=== PATIENT | male | born 1970 | race Caucasian/White ===

== ENCOUNTER 2019-01-15 10:38 | Inpatient (IN) | payer OTHER, MEDICAID ==
[~2019-01-15] VITALS: Ht 157.5 cm; Wt 78.5 kg
--- NOTE | 2019-01-15 10:40 | NUR ---
PT PLACED IN BED 8 BY EMS.
[2019-01-15 10:43] VITALS: BP 125/79
--- NOTE | 2019-01-15 10:45 | NUR ---
PT BIBA C/O G-TUBE MALFUNCTION. PER EMS PATIENT PULLED OUT G-TUBE, TRAINING PROGRAM MANAGER UNSURE WHAT SIZE G-TUBE PT USES, NOTHING PLACE AT THIS TIME. PT [facility]" HX--PROFOUND ID, SEIZURE, BLINDNESS, HTN, HYPOTHYROID, ANEMIA, DYSPHAGIA, RIGHT ECHO PARESIS
[2019-01-15] MEDS ORDERED: BENZ-248 GT (12:15)
[2019-01-15] MEDS ORDERED: ACET-2619 GT (12:15)
[2019-01-15] MEDS ORDERED: BENZ-196 PO (12:15)
[2019-01-15] MEDS ORDERED: MIRABULK GT (12:15)
[2019-01-15] MEDS ORDERED: VALP-22 GT (12:15)
[2019-01-15] MEDS ORDERED: COL100L GT (12:15)
[2019-01-15] MEDS ORDERED: CLON1TAB GT (12:15)
[2019-01-15] MEDS ORDERED: FERR220S GT (12:15)
[2019-01-15] MEDS ORDERED: QUET200T GT (12:15)
[2019-01-15] MEDS ORDERED: ATEN25TA7 GT (12:15)
[2019-01-15] MEDS ORDERED: LEVO0.124 PO (12:15)
[2019-01-15] MEDS ORDERED: ASCO500T45 GT (12:15)
[2019-01-15] MEDS ORDERED: ACETAMINOPHEN 650 MG/20.3 ML UDC GT PRN (12:20)
[2019-01-15] MEDS ORDERED: BENZONATATE 100 MG CAPLF PO PRN (12:20)
--- NOTE | 2019-01-15 13:10 | NUR ---
Patient will be admitted to care of [facility]. Admited to MED/SURG. Will go to room 120A. Belongings list completed. Report to GERHARD HORTON.
--- NOTE | 2019-01-15 13:20 | NUR ---
PATIENT ARRIVED VIA GURNEY. REPORT RECEIVED FROM CANDY MIXER LINSEY AT BEDSIDE FOR CONTINUITY OF CARE. PATIENT NONVERBAL. ASSISTANT CASE MANAGER, SARATH. FROM [facility] AT BEDSIDE. RESPIRATIONS EVEN AND UNLABORED ON ROOM AIR. FLACC-0. PATIENT COMBATIVE, WEAK ON LEFT SIDE. PATIENT HITS WITH RIGHT ARM AND RIGHT LEG. PATIENT ALSO HEADBUTTS AND BITES, PER SARATH. IV TO RIGHT AC, 22G, INTACT, PATENT, ASYMPTOMATIC, SL AT THE MOMENT. UPDATED BOARD. SAFETY AND SEIZURE PRECAUTIONS IN PLACE, CALL LIGHT WITHIN REACH, WILL CONTINUE TO MONITOR PATIENT.
--- NOTE | 2019-01-15 13:30 | NUR ---
PATIENT COMBATIVE, TAPPED SAUSAGE CANNER. CALLED DR. MATHEW FOR RESTRAINT ORDER. ORDER GIVEN. WRIST RESTRAINT AND MITTENS PLACED ON PATIENT. PATIENT VOIDED. PATIENT CHANGED AND CLEANED UP. FEEDER ASSOCIATE SARATH TOOK PATIENT'S BELONGINGS WITH HIM BACK TO [facility]. PATIENT WILL BE FREQUENTLY MONITORED. SAFETY AND SEIZURE PRECAUTIONS IN PLACE, BED IN LOWEST POSITION WITH ALARM ON, CALL LIGHT WITHIN REACH, WILL CONTINUE TO MONITOR PATIENT.
[2019-01-15 13:45] VITALS: BP 159/87
[2019-01-15] MEDS: QUEtiapine FUMARATE 100 MG TAB GT SCH ×2 (14:00→17:00)
[2019-01-15] MEDS: DEXT 5% / NACL 0.45% 1,000 ML IV SCH (14:00)
[2019-01-15] MEDS: clonazePAM 0.5 MG TAB GT SCH ×2 (14:00→17:00)
--- NOTE | 2019-01-15 14:10 | NUR ---
DR HERRERA IN TO SEE THE PATIENT. WILL WAIT FOR HIS ORDERS.
[2019-01-15] MEDS ORDERED: HYDROmorphone 1 MG/ML AMP ONE (14:15)
[2019-01-15] MEDS ORDERED: HYDROmorphone 1 MG/ML AMP IVP PRN (14:15)
--- NOTE | 2019-01-15 15:10 | NUR ---
ABDOMINAL XRAY FOR PLACEMENT OF GTUBE PERFORMED. WILL WAIT FOR RESULTS AND CONTACT DR. HERRERA. PATIENT TOLERATED IT WELL.
--- NOTE | 2019-01-15 17:00 | NUR ---
1700 MEDICATIONS NOT GIVEN D/T PATIENT NOT HAVING GTUBE. CALLED AND SPOKE TO DR. MATHEW TO ASK FOR PRN MEDICATIONS. NEW ORDER IN FOR ATIVAN MEDICATION. RN VERBALIZED UNDERSTANDING. ORDER NOTED AND WILL BE CARRIED OUT.
--- NOTE | 2019-01-15 17:40 | NUR ---
CALLED JOSE VENICE AT [facility] FOR CONSENT FOR EGD WITH PEG PLACEMENT. SHE STATED THAT SHE CANNOT GIVE VERBAL CONSENT. HIS [facility] WORKER, MR PALACIOS MAY GIVE CONSENT. PHILIP' PHONE NUMBER IS [phone]. GAVE PHILIP A CALL. NO ANSWER. LEFT VOICEMAIL. PATIENT CURRENTLY SLEEPING COMFORTABLY IN BED, ON RESTRAINS IN PLACE. WILL ENDORSE TO MORTGAGE COORDINATOR NURSE. WILL CONTINUE TO MONITOR PATIENT. Addendum: 01/15/19 at 1936 by Artis Best RN NO RESTRAINTS IN PLACE.
--- NOTE | 2019-01-15 19:05 | NUR ---
REPORT GIVEN TO DRY DIP WORKER NURSE AT BEDSIDE FOR CONTINUITY OF CARE. PATIENT ASLEEP, IN STABLE CONDITION.
--- NOTE | 2019-01-15 19:30 | NUR ---
ASSUMED CARE OF PATIENT, AWAKE. NO DISTRESS NOTED. HOB ELEVATED. CALL LIGHT WITHIN REACH.
--- NOTE | 2019-01-15 20:00 | NUR ---
MOVE TO 121B VIA BED. CALL LIGHT WITHIN REACH. HOB ELEVATED AT ALL TIME.
[2019-01-15] MEDS: LORazepam 2 MG/ML VIAL IM/IVP PRN (20:42)
[2019-01-15] MEDS: DOCUSATE 100 MG/10 ML UDC GT SCH (20:43)
[2019-01-15] MEDS: VALPROIC ACID 250 MG/5 ML UDC GT SCH (20:44)
[2019-01-15] MEDS: ATENOLOL 25 MG TAB GT SCH (20:44)
--- NOTE | 2019-01-15 21:00 | NUR ---
ATIVAN GIVEN IV FOR ANXIETY ORDERED. CALL LIGHT WITHIN REACH. NO DISTRESS NOTED.
--- NOTE | 2019-01-15 23:28 | NUR ---
VITALS SIGNS STABLE. REPOSITIONED BY CASH APPLICATIONS ASSOCIATE TO LEFT SIDE LYING. CALL LIGHT WITHIN REACH.
[2019-01-16 00:30] VITALS: BP 121/56
--- NOTE | 2019-01-16 00:31 | NUR ---
ASLEEP. NO COMPLAINS. VITAL SIGNS STABLE. REPOSITIONED BY OPERATIONS PROGRAM MANAGER. CALL LIGHT WITHIN REACH.
--- NOTE | 2019-01-16 02:00 | NUR ---
ASLEEP. REPOSITIONED. RESTRAINTS OFF. CALL LIGHT WITHIN REACH.
--- NOTE | 2019-01-16 04:35 | NUR ---
PERICARE DONE. REPOSITIONED BY BREAST WORKER. CALL LIGHT WITHIN REACH. NO DISTRESS.
--- NOTE | 2019-01-16 06:00 | NUR ---
PERICARE DONE. MORE COMBATIVE AND RESTLESS. KICKING AND HITTING STAFF MEMBER. REPOSITIONED PATIENT. 8 STAFF MEMBER AT BEDSIDE TO HOLD HIM DOWN TO INSERT NEW IV ACCESS. ABLE TO INSERT IV ON RIGHT HAND #22, SOFT WRIST AND SOFT MITTEN RESTRAINTS APPLIED ON RIGHT HAND/ARM. ATIVAN GIVEN ORDERED.
[2019-01-16] MEDS: LEVOTHYROXINE 0.025 MG, LEVOTHYROXINE 0.1 MG PO SCH ×2 (06:25)
[2019-01-16] MEDS: LORazepam 2 MG/ML VIAL IM/IVP PRN ×3 (06:26→23:28)
--- NOTE | 2019-01-16 07:17 | NUR ---
ENDORSED CARE AT BEDSIDE WITH JURGEN HORTON, PATIENT IN STABLE CONDITION.
--- NOTE | 2019-01-16 07:18 | NUR ---
PT RECEIBED FROM NIGHT RN, IRENA. PT IN BED, SLEEPING. BREATHING EVEN AND UNLABORED, IV TO R WRIST HAS D5 1/2 NS AT 50ML/HR. WILL CONTINUE CARE.
[2019-01-16 08:00] VITALS: BP 125/85
--- NOTE | 2019-01-16 08:15 | NUR ---
MITTENS AND WRIST RESTRAINTS REMOVED TO ASSESS CIRCULATION. WHEN REAPPLIED, RADIAL PULSES EQUAL, CAP REFILL IN ALL FINGERS < 3 SEC. WILL CONTINUE TO ASSESS PATIENT RESTRAINTS. BREATHING EVEN AND UNLABORED, WILL CONTINUE TO ASSESS FOR CHANGES IN CONDITION.
[2019-01-16] MEDS: DEXT 5% / NACL 0.45% 1,000 ML IV SCH (08:21)
--- NOTE | 2019-01-16 08:30 | NUR ---
FOLLOW-UP CALL TO MR. PALACIOS , PT'S [facility] C[facility] WORKER, FOR CONSENT FOR EGD WITH PEG TUBE PLACEMENT. MR. PALACIOS RECEIVED INFORMATION AND STATED HE WILL CALL MD FOR INFORMATION REGARDING THE PROCEDURE. HE WILL FAX WRITTEN CONSENT ONCE HE SPEAKS TO MD, FAX NUMBER PROVIDED. WILL WAIT FOR FAX.
[2019-01-16] MEDS: FERROUS SULFATE 300 MG/5 ML UDC GT SCH (09:00)
[2019-01-16] MEDS: ASCORBIC ACID 500 MG/5 ML ORASYR GT SCH (09:00)
[2019-01-16] MEDS ORDERED: NON-FORMULARY ITEM (Levothyroxine Sodium* (Synthroid*) 0.125 MG) PO SCH (09:00)
[2019-01-16] MEDS: DOCUSATE 100 MG/10 ML UDC GT SCH ×2 (09:00→20:46)
[2019-01-16] MEDS: QUEtiapine FUMARATE 100 MG TAB GT SCH ×3 (09:00→16:43)
[2019-01-16] MEDS ORDERED: NON-FORMULARY ITEM (Ferrous Sulfate 7.5 ML) GT SCH (09:00)
[2019-01-16] MEDS: BENZTROPINE 1 MG TAB GT SCH (09:00)
[2019-01-16] MEDS: VALPROIC ACID 250 MG/5 ML UDC GT SCH ×2 (09:00→20:46)
--- NOTE | 2019-01-16 09:00 | NUR ---
MORNING MEDICATIONS HELD DUE TO NO G-TUBE. PT AWAITING PROCEDURE FOR PEG PLACEMENT.
--- NOTE | 2019-01-16 09:05 | NUR ---
PATIENT HAS BEEN SCREENED AND CATEGORIZED HIGH NUTRITION RISK. PATIENT WILL BE SEEN WITHIN 1-2 DAYS OF ADMISSION. 01/16/19-01/17/[address]
--- NOTE | 2019-01-16 09:13 | NUR ---
PT IN BED SLEEPING, BREATHING EVEN AND UNLABORED ON ROOM AIR. NO SIGNS OF ACUTE DISTRESS AT THIS TIME. WILL CONTINUE TO ASSESS FOR CHANGES IN CONDITION.
--- NOTE | 2019-01-16 09:50 | NUR ---
FAX MACHINE CHECKED FOR FAXED CONSENT FROM MR PALACIOS. NO FAX. WILL RECHECK FAX AND FOLLOW-UP VIA PHONE CALL WITH MR PALACIOS IF FAXED CONSENT IS NOT RECEIVED BY 1030.
[2019-01-16] MEDS: clonazePAM 0.5 MG TAB GT SCH ×3 (09:51→16:43)
--- NOTE | 2019-01-16 10:03 | NUR ---
PT IN BED SLEEPING. BREATHING EVEN AND UNLABORED. IV SITE ASYMPTOMATIC. WILL CONTINUE TO ASSESS FOR CHANGES IN CONDITION.
--- NOTE | 2019-01-16 10:50 | NUR ---
EMMY BINGHAM CALLED FROM [facility] CONSENT FOR PEG TUBE PLACEMENT. EMMY REQUESTED WE FAX CONSENT SO SHE COULD READ IT AND SHE REQUESTED THE PHONE NUMBER FOR DR. GONG. WILL FAX CONSENT AND WAIT FOR RETURNED SIGNED FAX CONSENT.
--- NOTE | 2019-01-16 11:20 | NUR ---
CONSENT FAXED TO EMMY BINGHAM FROM [facility] . FAX CONFIRMATION RECEIVED. WILL WAIT FOR RETURN OF FAXED SIGNED CONSENT FOR PEG TUBE PLACEMENT.
[2019-01-16] MEDS: POLYETHYLENE GLYCOL 17 GM/PKT GT SCH (12:00)
--- NOTE | 2019-01-16 12:08 | NUR ---
PT IN BED SLEEPING. BREATHING EVEN AND UNLABORED ON ROOM AIR. RESTRAINTS RELEASED FOR 15 MIN TO ASSESS. NO SIGN OF INJURY. CAP REFILL < 3 SEC, RADIAL PULSES EQUAL. RESTRAINTS REAPPLIED AFTER ASSESSMENT. NO SIGNS OF ACUTE DISTRESS AT THIS TIME. WILL CONTINUE TO REASSESS.
--- NOTE | 2019-01-16 12:15 | NUR ---
PT IN BED. BREATHING EVEN AND UNLABORED, WILL CONTINUE TO ASSESS FOR CHANGES IN CONDITION. PT SLEEPING. NO SIGNS OF ACUTE DISTRESS AT THIS TIME.
--- NOTE | 2019-01-16 12:44 | NUR ---
EMMY BINGHAM CALLED TO FOLLOW-UP ON FAXED CONSENT FOR PEG TUBE PLACEMENT. NO ANSER. VOICEMAIL LEFT AND WILL WAIT FOR CALL BACK.
--- NOTE | 2019-01-16 13:00 | NUR ---
PT IN BED, AWAKE AND EYES OPEN, BREATHING EVEN AND UNLABORED, NO SIGNS OF ACUTE DISTRESS AT THIS TIME. WILL CONTINUE TO ASSESS FOR CHANGES IN CONDITION.
--- NOTE | 2019-01-16 13:02 | NUR ---
ORDERED KLONOPIN AND SEROQUEL NOT ADMINISTERED BECAUSE G-TUBE STILL WAITING TO BE REPLACED AND PT DYSPHAGIC.
--- NOTE | 2019-01-16 13:04 | NUR ---
OR NURSE KALPESH CALLED TO ASK ABOUT STATUS OF PT CONSENT FOR PEG TUBE PLACEMENT. KALPESH INFORMED THAT CONSENT IS STILL PENDING AND WE ARE WAITING FOR RETURN FAX OF SIGNED CONSENT. KALPESH STATED THAT DR. GONG WOULD LIKE US TO KEEP TRYING TO GET CONSENT AND PEG TUBE WILL BE REPLACED TOMORROW 01/17/19.
--- NOTE | 2019-01-16 14:00 | NUR ---
PT RESTRAINT TO L HAND REMOVED TO ASSESS CIRCULATION AND SKIN. SKIN INTACT, RADIAL PULSES EQUAL AND 2+, CAP REFILL IN ALL FINGERS < 3 SEC. PT ATTEMPTED TO QUICKLY GRASP NURSES HAD WITH EXTREMELY FIRM CASEWORK SUPERVISOR. RESTRAINTS WERE REAPPLIED. PT AWAKE. BREATHING EVEN AND UNLABORED. NO SIGNS OF ACUTE DISTRESS AT THIS TIME. WILL CONTINUE TO ASSESS FOR CHANGES IN CONDITION.
--- NOTE | 2019-01-16 14:40 | NUR ---
JOES MILLARD, TEENAGE PROGRAM DIRECTOR FROM [facility] CALLED REGARDING CONSENT. I TOLD HER WE ARE STILL WAITING FOR CONSENT FOR G-TUBE PLACEMENT AND MEDS ARE ALL BEING WITHHELD UNTIL G-TUBE IS REPLACED. I INFORMED HER THAT DR. GONG PUSHED BACK G-TUBE REINSERTION UNTIL TOMORROW 01/17/19 IN AN ATTEMPT TO GET CONSENT. JOSE MILLARD STATED SHE WILL FOLLOW UP WIT EMMY BINGHAM REGARDING CONSENT, AND SHE LEFT A CALL BACK NUMBER .
--- NOTE | 2019-01-16 15:32 | NUR ---
01/16/19 RD INITIAL ASSESSMENT COMPLETED PLEASE REFER TO NUTRITION ASSESSMENT UNDER CARE ACTIVITY FOR ESTIMATED NUTRITIONAL NEEDS. 1. IF/WHEN MEDICALLY CLEAR CONSIDER STARTING TUBE FEEDING WITH JEVITY @ 65 ML/HR -THIS WILL PROVIDE 1872 KCAL, 86 GM OF PROTEIN WHICH MEETS 100% OF ESTIMATED NEEDS 2. RECOMMEND FREE WATER FLUSH OF [address] TO FOLLOW-UP 2-3 DAYS, HIGH RISK [address]
--- NOTE | 2019-01-16 15:45 | NUR ---
EMMY BINGHAM FROM [facility] CALLED TO FOLLOW-UP ON CONSENT FOR G-TUB PLACEMENT. NO ANSWER. VOICEMAIL LEFT WITH CALL BACK NUMBER.
[2019-01-16 16:00] VITALS: BP 128/87
--- NOTE | 2019-01-16 16:00 | NUR ---
BED LINENS, GOWN, AND DIAPER CHANGED WITH THE HELP OF QUIRINO DUNAWAY AND FOUR NURSING STUDENTS. PT TRIED TO SCRATCH, KICK, HIT, AND BITE THROUGHOUT CHANGE BUT ARMS AND LEGS RESTRAINED NEEDED. PT, STAFF, AND NURSING STUDENTS REMAINED FREE FROM INJURY. PT CONTINUED TO HIT HIS L MARTÍNEZ WITH R HEEL. PILLOW PLACED BETWEEN LEGS TO HELP CUSHION L MARTÍNEZ. PT REPOSITIONED.
--- NOTE | 2019-01-16 16:43 | NUR ---
MEDICATIONS FOR 1700 HELD DUE TO NO G-TUBE AND PT IS DYSPHAGIC. G-TUBE PLACEMENT WILL OCCUR TOMORROW, PENDING CONSENT.
--- NOTE | 2019-01-16 17:36 | NUR ---
PT IN BED, AWAKE. BREATHING EVEN AND UNLABORED ON ROOM AIR. NO SIGNS OF ACUTE DISTRESS AT THIS TIME. WILL CONTINUE TO ASSESS FOR CHANGES IN CONDITION.
--- NOTE | 2019-01-16 18:45 | NUR ---
PT IN BED SLEEPING. BREATHING EVEN AND UNLABORED ON ROOM AIR. 22G IV TO R WRIST INFUSING D5 1/2 NS AT 50 ML/HR, SITE ASYMPTOMATIC. PT SHOWS NO SIGNS OF ACUTE DISTRESS AT THIS TIME. WILL ENDORSE FOLLOW-UP WITH CONSENT AND PRE-OP CHECKLIST TO NEXT SHIFT.
--- NOTE | 2019-01-16 19:10 | NUR ---
PT ENDORSED TO NIGHT ELAINE HORTON. PT IN BED, SLEEPING. BREATHING EVEN AND UNLABORED. NO SIGNS OF ACUTE DISTRESS AT THIS TIME.
--- NOTE | 2019-01-16 19:15 | NUR ---
RECEIVED FROM AM RN IN BED SLEEPING. NO RESTLESSNESS. PT. BED ALARM ON AND PT. TOTAL CARE RT MENTAL RETARDATION AND NON VERBAL. NEEDS WILL BE ANTICIPATED AND WILL BE MET.
--- NOTE | 2019-01-16 20:42 | NUR ---
PT. AWAKE AT THIS TIME. NON VERBAL. NO MEDICATIONS DUE RT NO GT IN PLACE. MD AWARE . NEEDS WILL BE ANTICIPATED AND WILL BE MET. TOTAL CARE. WILL BE TURNED Q 2H. PT. AT THIS TIME QUIET AND JUST OBSERVING. EYES OPEN.
[2019-01-16 20:46] VITALS: BP 151/91
[2019-01-16] MEDS: ATENOLOL 25 MG TAB GT SCH (20:46)
--- NOTE | 2019-01-16 23:29 | NUR ---
PT. SHOUTING WITH NO REASON. AWAKE AND AGITATED. REFUSED TO BE TURNED AT THIS TIME. PT. COMBATIVE. EXPLAINED THAT HE NEEDS TO BE TURNED AND CHANGED RT HE IS WET WITH URINE.
--- NOTE | 2019-01-17 00:56 | NUR ---
PT. QUIET NOW. SLEEPING. TURNED TO SIDE WITH PILLOW SUPPORT TO PRESSURE AREAS. BED ALRM ON. NEEDS ANTICIPATED AND WILL BE MET. TOTAL CARE.
--- NOTE | 2019-01-17 02:30 | NUR ---
PT. TURNED TO SIDES WITH PILLOW SUPPORT. BECOMES VERY COMBATIVE TO CARE . KICKS, BITES,SPITS AND WOULD SHOUT OUT LOUDLY.
[2019-01-17] MEDS: DEXT 5% / NACL 0.45% 1,000 ML IV SCH (04:08)
--- NOTE | 2019-01-17 04:30 | NUR ---
PT. TURNED TO OTHER SIDE. WAKES UP EASILY WHEN TOUCHED. PILLOW SUPPORT TO PRESSURE AREAS.
[2019-01-17] MEDS: LORazepam 2 MG/ML VIAL IM/IVP PRN ×3 (05:24→21:53)
[2019-01-17] MEDS: LEVOTHYROXINE 0.025 MG, LEVOTHYROXINE 0.1 MG PO SCH ×2 (05:24)
--- NOTE | 2019-01-17 05:44 | NUR ---
PT. AM PERSONAL CARE RENDERED BY FIELD RADIO OPERATOR WITH HELP OF 4 NURSES AND 2 CNAS. PT. VERY COMBATIVE TO CARE. TURNED TO SIDES WITH PILLOW SUPPORT TO PRESSURE AREAS. NEEDS WERE ANTICIPATED AND MET.
--- NOTE | 2019-01-17 07:07 | NUR ---
ENDORSED TO THE NEXT RN FOR CONTINUITY OF CARE. PT. AWAKE AND ALERT. PT. TALKING BY SHOUTING NON COMPREHENSIBLE SENTENCES. NEEDS ANTICIPATED AND MET. TOTAL CARE.
--- NOTE | 2019-01-17 07:08 | NUR ---
PT RECEIVED FROM NIGHT RNELAINE. IV TO R WRIST INFUSING D5 1/2 NS AT 50 ML/HR. PT IN BED, AWAKE AND RESPONDS TO VERBAL STIMULI. BREATHING EVEN AND UNLABORED. WILL CONTINUE TO ASSESS FOR CHANGES IN CONDITION
[2019-01-17 08:00] VITALS: BP 148/82
[2019-01-17] MEDS: VALPROIC ACID 250 MG/5 ML UDC GT SCH ×2 (09:00→21:44)
[2019-01-17] MEDS: FERROUS SULFATE 300 MG/5 ML UDC GT SCH (09:00)
[2019-01-17] MEDS: BENZTROPINE 1 MG TAB GT SCH (09:00)
[2019-01-17] MEDS: ASCORBIC ACID 500 MG/5 ML ORASYR GT SCH (09:00)
[2019-01-17] MEDS: clonazePAM 0.5 MG TAB GT SCH ×3 (09:00→17:00)
[2019-01-17] MEDS: QUEtiapine FUMARATE 100 MG TAB GT SCH ×3 (09:00→17:00)
[2019-01-17] MEDS: DOCUSATE 100 MG/10 ML UDC GT SCH ×2 (09:00→21:44)
--- NOTE | 2019-01-17 09:00 | NUR ---
PT MORNING MEDICATIONS HELD DUE TO NO G-TUBE, G-TUBE WILL BE REPLACED TODAY 01/17/19
--- NOTE | 2019-01-17 09:20 | NUR ---
EMMY BINGHAM FROM [facility] CALLED TO FOLLOW UP ON CONSENT. NO ANSWER, LEFT VOICEMAIL WITH CALL BACK NUMBER
--- NOTE | 2019-01-17 09:23 | NUR ---
PT IN BED, AWAKE AND RESPONSIVE TO VERBAL STIMULI. BREATHING EVEN AND UNLABORED. NO SIGNS OF ACUTE DISTRESS AT THIS TIME. WILL CONTINUE TO ASSESS FOR CHANGES IN CONDITION.
--- NOTE | 2019-01-17 09:27 | NUR ---
EMMY BINGHAM CALLED TO SAY SHE WILL RE-FAX CONSENT BECAUSE SHE SENT IT YESTERDAY. WILL WAIT FOR FAX.
--- NOTE | 2019-01-17 09:50 | NUR ---
CHARGE NURSE FOLLOWED UP WITH DR GONG TO INFORM THAT WE RECEIVED CONSENT FOR G-TUBE PLACEMENT. Addendum: 01/17/19 at 1046 by Danyelle Rendon RN *Dr. Sophia Mar* rather.
--- NOTE | 2019-01-17 11:30 | NUR ---
PT SKIN CLEANSED WITH CHLORHEXIDINE WIPES. LINENS, DIAPER, AND GOWN CHANGED. PT ATTEMPTED TO KICK AND HIT DURING CHANGE BUT NO INJURIES OCCURRED TO STAFF OR PATIENT
[2019-01-17] MEDS: POLYETHYLENE GLYCOL 17 GM/PKT GT SCH (12:00)
--- NOTE | 2019-01-17 12:20 | NUR ---
1200 AND 1300 MEDICATIONS HELD DUE TO PT NOT HAVING NG TUBE. NG TUBE WILL BE REPLACED TODAY BY DR. HERRERA.
--- NOTE | 2019-01-17 12:30 | NUR ---
PT IN BED SLEEPING. BREATHING EVEN AND UNLABORED ON ROOM AIR. WILL CONTINUE TO ASSES FOR CHANGES IN CONDITION.
[2019-01-17] MEDS ORDERED: diphenhydrAMINE 50 MG/ML VIAL ONE (12:58)
[2019-01-17] MEDS ORDERED: MIDAZOLAM 2 MG/2 ML VIAL ONE (12:58)
[2019-01-17] MEDS ORDERED: fentaNYL 0.05 MG/ML VIAL ONE (12:58)
--- NOTE | 2019-01-17 13:10 | NUR ---
PT RETURNED FROM OR. PT SLEEPING. BREATHING EVEN AND UNLABORED. G-TUBE PLACED IN SURGERY, SECURED WITH ABDOMINAL BINDER AND PORT OPEN.
[2019-01-17] MEDS ORDERED: ceFAZolin 1,000 MG VIAL ONE (14:43)
--- NOTE | 2019-01-17 15:00 | NUR ---
PT IN BED SLEEPING. AWAKES TO VERBAL STIMULI. WILL CONTINUE TO ASSESS FOR CHANGES IN CONDITION .
[2019-01-17] MEDS ORDERED: fentaNYL 0.05 MG/ML VIAL IVP ONE (15:05)
[2019-01-17] MEDS ORDERED: MIDAZOLAM 2 MG/2 ML VIAL IVP ONE (15:05)
[2019-01-17] MEDS ORDERED: diphenhydrAMINE 50 MG/ML VIAL IVP ONE (15:05)
[2019-01-17 16:00] VITALS: BP 123/70
--- NOTE | 2019-01-17 17:00 | NUR ---
PT IN BED SLEEPING. AWAKES TO VERBAL STIMULI. WILL CONTINUE TO ASSESS FOR CHANGES IN CONDITION .NO SIGNS OF ACUTE DISTRESS AT THIS TIME.
--- NOTE | 2019-01-17 19:24 | NUR ---
BEDSIDE REPORT GIVEN TO NIGHT RN KISSES. PT IN BED, AWAKE AND ALERT. D5 1/2 NS AT 50 ML/HR INFUSING TO 22G ON R WRIST. PT BREATHING EVEN AND UNLABORED. WILL ENDORSE CARE TO NIGHT RN.
--- NOTE | 2019-01-17 19:25 | NUR ---
RECEIVED BEDSIDE REPORT FROM DAY SHIFT NURSE. PATIENT IS AWAKE AND NONVERBAL. RESPIRATION EVEN UNLABORED ON ROOM AIR. S/P G-TUBE REPLACEMENT. DRESSING INTACT AND DRY. PATIENT IS ON SOFT MITTEN RESTRAIN RIGHT HAND. IV PATENT AND INTACT. PLAN OF CARE UPDATED. ALL SAFETY MEASURES IN PLACE. BED IS AT LOW POSITION. CALL LIGHT WITHIN REACH. WILL CONTINUE TO MONITOR.
--- NOTE | 2019-01-17 20:00 | NUR ---
INITIAL ASSESSMENT DONE. CHECKED FOR BOWEL SOUND. ACTIVE BOWEL SOUND NOTED. G-TUBE PLACEMENT INTACT. WILL CONTINUE TO MONITOR.
--- NOTE | 2019-01-17 21:00 | NUR ---
CHECKED G-TUBE SITE. G-TUBE INTACT AND NO SIGNED OF DRAINAGE NOTED. CHECKED FOR PLACEMENT. START G-TUBE FEEDING AT 10CC PER ORDER. WILL CONTINUE TO MONITOR.
--- NOTE | 2019-01-17 21:30 | NUR ---
PATIENT IS COMBATIVE, KICKING AND HITTING. 5 STAFF MEMBER AT BEDSIDE TO HOLD HIM DOWN WHILE GIVING MEDS. ABLE TO GIVE MEDS. REPOSITIONED PATIENT. RELEASED SOFT WRIST AND MITTEN RESTRAINTS TO ASSESS CIRCULATION. WILL CONTINUE TO MONITOR.
[2019-01-17] MEDS: ATENOLOL 25 MG TAB GT SCH (21:43)
[2019-01-17] MEDS: busPIRone 5 MG TAB PO SCH (21:43)
--- NOTE | 2019-01-17 21:50 | NUR ---
PATIENT IS COMBATIVE AND AGITATED. PRN ATIVAN ADMINISTERED PER ORDER. WILL CONTINUE TO MONITOR.
--- NOTE | 2019-01-17 22:30 | NUR ---
PATIENT IS SLEEPING RESPIRATION EVEN UNLABORED ON ROOM AIR. NO DISTRESS NOTED. WILL CONTINUE TO MONITOR.
[2019-01-18] VITALS: BP 143/90
[2019-01-18] MEDS: DEXT 5% / NACL 0.45% 1,000 ML IV SCH
--- NOTE | 2019-01-18 | NUR ---
VITALS WERE TAKEN . NO DISTRESS NOTED. PATIENT IN STABLE CONDITION. RELEASED RESTRAINED AND ASSESS FOR CIRCULATION. WILL CONTINUE TO MONITOR.
--- NOTE | 2019-01-18 02:00 | NUR ---
CHECKED PATIENT. PATIENT SLEEPING RESPIRATION EVEN UNLABORED ON ROOM AIR. NO DISTRESS NOTED. WILL CONTINUE TO MONITOR.
--- NOTE | 2019-01-18 02:30 | NUR ---
CHECKED G-TUBE RESIDUAL. OBTAINED 30CC. PATIENT TOLERATING IT WELL. WILL INCREASE TO 20CC. WILL CONTINUE TO MONITOR
--- NOTE | 2019-01-18 04:50 | NUR ---
PATIENT COMBATIVE, KICKING, HITTING, AND SCREAMING. PATIENT CHANGED AND CLEAN UP. WILL CONTINUE TO MONITOR
[2019-01-18] MEDS: LEVOTHYROXINE 0.025 MG, LEVOTHYROXINE 0.1 MG PO SCH ×2 (06:00)
[2019-01-18] MEDS: LORazepam 2 MG/ML VIAL IM/IVP PRN (06:24)
--- NOTE | 2019-01-18 06:27 | NUR ---
PATIENT IS AGITATED, SCREAMING, AND KICKING. PRN ATIVAN GIVEN PER ORDER. WILL CONTINUE TO MONITOR.
--- NOTE | 2019-01-18 06:30 | NUR ---
CHECKED PATIENT RESIDUAL OBTAINED 0CC. PATIENT TOLERATING THE FEEDING WELL. WILL CONTINUE TO MONITOR.
--- NOTE | 2019-01-18 07:00 | NUR ---
RECEIVED REPORT FROM LOGGING OPERATIONS INSPECTOR NURSE. PATIENT IS AGITATED AT THIS TIME. INFORMED BY LOGGING OPERATIONS INSPECTOR THAT ATIVAN WAS GIVEN AT 0630. PATIENT IS A&O X0/1. PT ON ROOM AIR. RESTRAINT TO RIGHT WRIST. IV TO RIGHT WRIST 22G WITH D5NS @50ML/HR. PATIENT IS ON TUBE FEEDING JEVI 1.2 @30ML/HR. WILL CONTINUE TO MONITOR.
--- NOTE | 2019-01-18 07:05 | NUR ---
PATIENT HAD MULTIPLE NONADMINISTERED MEDICATIONS PER ROOFER APPLICATOR NURSE. CHANGED STATUS OF THOSE MEDICATIONS TO NONADMIN.
--- NOTE | 2019-01-18 07:20 | NUR ---
ENDORSED PATIENT TO DAY SHIFT NURSE. PATIENT IN STABLE CONDITION.
[2019-01-18 08:00] VITALS: BP 150/96
[2019-01-18] MEDS ORDERED: MUPIROCIN CA NASAL 2% 1GM TUBE NS SCH (09:00)
[2019-01-18] MEDS ORDERED: CHLORHEXADINE GLUC 2% CLOTH TP SCH (09:00)
[2019-01-18] MEDS ORDERED: LACTULOSE 20 GM/30 ML UDC PO SCH (09:00)
[2019-01-18] MEDS: FERROUS SULFATE 300 MG/5 ML UDC GT SCH (09:31)
[2019-01-18] MEDS: DOCUSATE 100 MG/10 ML UDC GT SCH (09:31)
[2019-01-18] MEDS: VALPROIC ACID 250 MG/5 ML UDC GT SCH (09:32)
[2019-01-18] MEDS: clonazePAM 0.5 MG TAB GT SCH ×2 (09:34→13:00)
[2019-01-18] MEDS: QUEtiapine FUMARATE 100 MG TAB GT SCH ×2 (09:36→13:00)
[2019-01-18] MEDS: BENZTROPINE 1 MG TAB GT SCH (09:36)
[2019-01-18] MEDS: busPIRone 5 MG TAB PO SCH (09:36)
[2019-01-18] MEDS: ASCORBIC ACID 500 MG/5 ML ORASYR GT SCH (09:39)
--- NOTE | 2019-01-18 10:03 | NUR ---
ADMINISTERED MORNING MEDICATION VIA G TUBE WITH ASSISTANCE FROM CLIFFORD ESCALANTE AND 2 INSTRUMENT MECHANIC'S. PATIENT TOLERATED WELL. SPOKE TO DR MATHEW ABOUT DISCHARGING PATIENT BACK TO [facility].
--- NOTE | 2019-01-18 11:20 | NUR ---
PATIENT IS RESTING IN BED. WAITING ON [facility] TO GIVE A CALL BACK REGARDING DISCHARGE TIME.
[2019-01-18] MEDS: POLYETHYLENE GLYCOL 17 GM/PKT GT SCH (12:00)
--- NOTE | 2019-01-18 16:15 | NUR ---
PATIENT HAS BEEN DISCHARGED AND IS OFF THE UNIT
[2019-01-19 08:13] LABS: HEPATITIS A ANTIBODY IGM Negative (Negative); HEPATITIS B CORE AB TOTAL Negative (Negative); HEPATITIS B SURFACE ANTIBODY Reactive (.); HEPATITIS B SURFACE ANTIGEN Negative (Negative)
== END 2019-01-18 16:30 | disposition home or self-care (01) | DRG 395 ==
LOC: MED 10:38 → MTU 12:26
PROVIDERS: ADMIT Internal Medicine Cardiovascular Disease; ATTEND Internal Medicine Cardiovascular Disease
PROC: 0DH63UZ Insertion of Feeding Device into Stomach, Percutaneous Approach (ICD-10-PCS; principal; 2019-01-17 11:00)
DX: K94.29 Other complications of gastrostomy (principal); D64.9 Anemia, unspecified; E03.9 Hypothyroidism, unspecified; F41.9 Anxiety disorder, unspecified; G40.909 Epilepsy, unspecified, not intractable, without status epilepticus; R13.10 Dysphagia, unspecified; H54.7 Unspecified visual loss; Y83.8 Other surgical procedures as the cause of abnormal reaction of the patient, or of later complication, without mention of misadventure at the time of the procedure; Y82.8 Other medical devices associated with adverse incidents; Y92.89 Other specified places as the place of occurrence of the external cause; Z79.899 Other long term (current) drug therapy
CPT/HCPCS: 36415; 74241; 86704; 86706; 86708; 86709; 86803; 87081; 87340; 99284; J0690; J1170; J1200; J2060; J2250; J3010; J7060

== ENCOUNTER 2019-06-07 13:34 | Emergency (ER) | payer OTHER, MEDICAID ==
[~2019-06-07] VITALS: Ht 167.6 cm; Wt 88.9 kg
[~2019-06-07 13:34] MED LIST: ACET-2619 GT; ASCO500T45 GT; ATEN25TA7 GT; BENZ-196 PO; BENZ-203 GT; CLON1TAB GT; COL100L GT; FERR220S GT; LEVO0.124 PO; MIRABULK GT; QUET200T GT; VALP-22 GT
--- NOTE | 2019-06-07 13:34 | NUR ---
Patient MARU HEADLEY from [facility], transferred to bed 9. RN evaluating patient at bedside.
[2019-06-07 13:35] VITALS: BP 152/110
--- NOTE | 2019-06-07 13:40 | NUR ---
PT BIBA BLS WITH C/O POSSIBLE UTI AND CONSTIPATION. CAREGIVER STATES PT HAS HAD FOUL SMELLING URINE AND DIFFICULTY WITH DEFICATION X 1 DAY. DENIES N/V. STATES PT HAS BEEN AFEBRILE. PRESENTS WITH GCS OF 12 UPON ARRIVAL. RR EVEN AND UNLABORED PT PLACED ON MONITOR. CAREGIVER AT BEDSIDE. VSS MEDHX: ID, BLIND, SCHIZOAFFECTIVE DISORDER, HYPOTHYROIDISM, SEIZURES, HTN ALLERGIES: NKA
--- NOTE | 2019-06-07 14:02 | NUR ---
URINE COLLECTED VIA STRAIGHT CATH, 300CC OF OUTPUT COLLECTED.
--- NOTE | 2019-06-07 14:03 | NUR ---
DR HOLMAN AT BEDSIDE EXAMINING PT
[2019-06-07 14:45] LABS: BILIRUBIN,URINE NEGATIVE (NEGATIVE); BLOOD, URINE NEGATIVE (NEGATIVE); COLOR,URINE AMBER (YELLOW); LEUKOCYTE ESTERASE ,URINE NEGATIVE (NEGATIVE); NITRITE, URINE NEGATIVE (NEGATIVE); UGLUCOSE NEGATIVE (NEGATIVE)
--- NOTE | 2019-06-07 15:12 | NUR ---
PT LAYING IN BED POSITIONED FOR COMFORT, RR EVEN AND UNLABORED. CAREGIVER REMAINS AT BEDSIDE. VSS. WILL CONTINUE TO MONITOR.
[2019-06-07 16:01] VITALS: BP 152/110
--- NOTE | 2019-06-07 16:02 | NUR ---
Patient discharged with v/s stable. Written and verbal after care instructions given and explained. Patient alert, oriented and verbalized understanding of instructions. Wheel Chair Assisted with by caregiver. All questions addressed prior to discharge. ID band removed. Patient advised to follow up with PMD. Rx of MIRALAX given. Patient educated on indication of medication including possible reaction and side effects. Opportunity to ask questions provided and answered.
== END 2019-06-07 16:02 ==
LOC: MED 13:34
DX: K59.00 Constipation, unspecified (principal); N39.0 Urinary tract infection, site not specified; I10 Essential (primary) hypertension; E07.9 Disorder of thyroid, unspecified; H54.7 Unspecified visual loss; Z79.899 Other long term (current) drug therapy
CPT/HCPCS: 81003; 99283

== ENCOUNTER 2019-06-18 09:56 | Inpatient (IN) | payer OTHER, MEDICAID ==
[~2019-06-18] VITALS: Ht 167.6 cm; Wt 78.9 kg
--- NOTE | 2019-06-18 09:56 | NUR ---
Patient BIBA ALS, transferred to bed 10. RN evaluating patient at bedside.
--- NOTE | 2019-06-18 09:57 | NUR ---
Dr. Paez is evaluating the patient at bedside.
--- NOTE | 2019-06-18 10:01 | NUR ---
Respiratory therapist is evaluating the patient at bedside.
[2019-06-18] MEDS ORDERED: ALBUTEROL SULFATE/IPRATROPIU 3 ML SOL IH ONE (10:10)
[2019-06-18] MEDS ORDERED: RACEPINEPHRINE 2.25% 13.5 MG/0.5 ML NEBU INH ONE (10:10)
[2019-06-18 10:15] VITALS: BP 118/87
[2019-06-18 10:30] LABS: BASOPHILS # (AUTO) 0.1 K/uL (0.00-0.22); BASOPHILS % (AUTO) 1.4 % (0.0-2.0); EOSINOPHILS # (AUTO) 0.1 K/uL (0-0.4); EOSINOPHILS % (AUTO) 2.2 % (0.0-4.0); HEMATOCRIT 41.9 % (36-52); HEMOGLOBIN 14.2 g/dL (12.0-18.0); LYMPHOCYTES # (AUTO) 1.8 K/uL (2.0-11.5); LYMPHOCYTES % (AUTO) 31.9 % (20.5-51.1); MEAN CORPUSCULAR HEMOGLOBIN 29 pg (27-31); MEAN CORPUSCULAR HGB CONC 34 g/dL (33-37); MEAN CORPUSCULAR VOLUME 84.8 fL (80-94); MONOCYTES # (AUTO) 0.6 K/uL (0.8-1.0); MONOCYTES % (AUTO) 9.6 % (1.7-9.3); NEUTROPHILS # (AUTO) 3.2 K/uL (1.8-7.7); NEUTROPHILS % (AUTO) 54.9 % (42.2-75.2); PLATELET COUNT (AUTO) 283 K/uL (140-450); RED BLOOD CELL COUNT(AUTO) 4.94 MIL/uL (4.20-6.10); RED CELL DISTRIBUTION WIDTH 13.7 % (11.6-13.7); WHITE BLOOD COUNT (AUTO) 5.8 K/uL (4.8-10.8)
--- NOTE | 2019-06-18 10:32 | NUR ---
PT BIBA FROM [facility] C/O SUDDEN ONSET OF RESP DISTRESS. IN ER, PT IS GCS 9. PT WITH LOUD AUDIBLE RHONCHI AND GRUNTING. PT PUT ON HIGH FLOW O2 VIA MASK HX---OS BLIND, HEMIPLEGIA LEFT SIDE, TBI, SEIZURE, CVA, NON VERBAL, G-TUBE DEPENDENT RX---SEE LIST
--- NOTE | 2019-06-18 10:40 | NUR ---
BLOOD SUGAR 148. MADE AWARE.
[2019-06-18 10:46] LABS: ALBUMIN 3.4 g/dL (3.4-5.0); ANION GAP 13.5 (8-16); ASPARTATE AMINOTRANSFERASE 69 U/L (15-37); CARBON DIOXIDE 27.1 mmol/L (21-32); CHLORIDE 99 mmol/L (98-107); CREATININE 0.8 mg/dL (0.6-1.3); GFR ARICAN-AMERICAN 133 mL/min (>90); GLUCOSE 164 mg/dL (74-106); POTASSIUM 3.6 mmol/L (3.5-5.1); SODIUM SERUM 136 mmol/L (136-145); TOTAL BILIRUBIN 0.3 mg/dL (0.0-1.0); UREA NITROGEN, BLOOD 15 mg/dL (7-18)
[2019-06-18 10:48] LABS: ACETAMINOPHEN < 0.5 ug/ml (10-30)
[2019-06-18 11:13] LABS: SALICYLATE < 2.8 mg/dL (2.8-20.0)
[2019-06-18] MEDS ORDERED: PIPERACILLIN/TAZOBACTAM 3.375 GM in DEXTROSE 5% 50 ML IV ONE (11:40)
[2019-06-18] MEDS ORDERED: PIPERACILLIN/TAZOBACTAM 3.375 GM VIAL IV ONE (11:47)
[2019-06-18 11:55] LABS: APPEARANCE,URINE CLEAR (CLEAR); BILIRUBIN,URINE NEGATIVE (NEGATIVE); BLOOD, URINE TRACE-I (NEGATIVE); COLOR,URINE YELLOW (YELLOW); LEUKOCYTE ESTERASE ,URINE NEGATIVE (NEGATIVE); NITRITE, URINE NEGATIVE (NEGATIVE); UGLUCOSE NEGATIVE (NEGATIVE)
[2019-06-18 12:02] LABS: BARBITURATE, URINE NEG. ng/ml (NEG <=200); BENZODIAZEPINE, URINE NEG. ng/mL (NEG <=200); CANNABINOID, URINE NEG. ng/mL (NEG <=50); COCAINE, URINE NEG. ng/mL (NEG <=300); OPIATE, URINE NEG. ng/mL (NEG <=2000); PHENCYCLIDINE SCREEN,URINE NEG. ng/mL (NEG <=25)
[2019-06-18 12:03] LABS: RBC,URINE 0-5 /HPF (0-5); WBC,URINE 0-5 /HPF (0-5)
--- NOTE | 2019-06-18 13:28 | NUR ---
Patient will be admitted to care of DR MATHEW. Admited to TELE. Will go to room 125B. Belongings list completed. Report to CLIFFORD SCHMIDT.
[2019-06-18 13:38] VITALS: BP 124/78
--- NOTE | 2019-06-18 13:38 | NUR ---
RECEIVED BEDSIDE REPORT FROM ED NURSE. PT RESTING IN BED UPON ARRIVAL. FLACC 0. RESPIRATIONS EVEN AND UNLABORED WITH NO SOB OR RESPIRATORY DISTRESS. PT ON 5L NC. IV SITE IN RAC 20G IS CLEAN, DRY, AND INTACT. SKIN WARM AND DRY TO TOUCH. G-TUBE IS CLEAN, DRY, AND INTACT. MRSA SWAB OBTAINED. SAFETY MEASURES IN PLACE. WILL CONTINUE TO MONITOR
--- NOTE | 2019-06-18 15:15 | NUR ---
HOURLY ROUNDING. PT RESTING IN BED UPON ARRIVAL. FLACC 0. RESPIRATIONS EVEN AND UNLABORED WITH NO SOB OR RESPIRATORY DISTRESS. SKIN WARM AND DRY TO TOUCH. SAFETY MEASURES IN PLACE. WILL CONTINUE TO MONITOR
--- NOTE | 2019-06-18 15:17 | NUR ---
DISCHARGE PLANNING: THIS IS A 48 Y/O MALE PATIENT FROM [facility], WHO CAME IN DUE TO RESPIRATORY DISTRESS. PAST MEDICAL HISTORY INCLUDE HTN, SEIZURES AND HYPOTHYROIDISM. INITIAL DIAGNOSIS OF PNEUMONIA. CURRENT LABS INCLUDE WBC 5.8, H/H 14.2/41.9, NA/K 136/3.5, BUN/CREA 15/0.8 AND LACTIC ACID 2.3. BLOOD C/S PENDING. NO CONSULTS YET PENDING ATTENDINGS ORDER. DC PLAN BACK TO [facility] ONCE STABLE. Addendum: 06/19/19 at 1134 by Lorena Estes CURRENT LABS INCLUDE WBC 7.0, H/H 12.8/33.6, NA/K 136/4.3, BUN/CREA 13/0.7, LACTIC ACID 1.3. BLOOD CULTURES AND MRSA NARES PENDING. ON ZOSYN. DC PLAN BACK TO HOME ONCE STABLE.
[2019-06-18 16:00] VITALS: BP 118/82
--- NOTE | 2019-06-18 16:35 | NUR ---
CALLED [facility] TO SEE WHEN THE PATIENT HAD RECEIVED HIS PNA AND FLU VACCINE. THE NURSE SAID THAT HE RECEIVED HIS FLU VACCINE 2018 AND HE RECEIVED THE PNA VACCINE IN 2018. SAFETY MEASURES IN PLACE. WILL CONTINUE TO MONITOR
[2019-06-18] MEDS ORDERED: ACETAMINOPHEN 325 MG TAB GT PRN (17:45)
[2019-06-18] MEDS ORDERED: ONDANSETRON 4 MG/2 ML VIAL IVP PRN (17:45)
[2019-06-18] MEDS ORDERED: ALBUTEROL 0.083% 2.5 MG/3 ML NEBU INH PRN (17:45)
[2019-06-18] MEDS ORDERED: HYDROcodone/APAP 5/325 MG 1 TAB TAB GT PRN (17:45)
[2019-06-18] MEDS ORDERED: BENZONATATE 100 MG CAPLF PO PRN (17:45)
--- NOTE | 2019-06-18 19:15 | NUR ---
ENDORSED TO NIGHTSHIFT NURSE. PT RESTING IN BED UPON ARRIVAL. FLACC 0. RESPIRATIONS EVEN AND UNLABORED WITH NO SOB OR RESPIRATORY DISTRESS. SKIN WARM AND DRY TO TOUCH. SAFETY MEASURES IN PLACE. PT IS STABLE
--- NOTE | 2019-06-18 19:20 | NUR ---
RECEIVED BEDSIDE REPORT FROM DAY SHIFT NURSE. PATIENT IS AWAKE RESPIRATION EVEN UNLABORED ON 5L NC O2. NO DISTRESS NOTED. SKIN IS WARM AND DRY. IV PATENT AND INTACT. PLAN OF CARE UP DATED. ALL SAFETY MEASURES IN PLACE. BED IS AT LOW POSITION. CALL LIGHT WITHIN REACH. WILL CONTINUE TO MONITOR.
[2019-06-18 20:00] VITALS: BP 140/88
--- NOTE | 2019-06-18 20:05 | NUR ---
INITIAL ASSESSMENT DONE. VITALS WERE TAKEN. CHECKED PATIENT G-TUBE RESIDUAL. OBTAINED 0CC. WILL CONTINUE TO MONITOR.
[2019-06-18] MEDS: IPRATROPIUM 0.02% 0.5 MG/2.5 ML NEBU INH SCH (20:42)
--- NOTE | 2019-06-18 20:51 | NUR ---
RECEIVED PT FROM AM SHIFT. PT IN NO APPARENT RESPIRATORY DISTRESS AT THIS TIME; HR 76, RR 20, SPO2 99% ON 5L NC. 02 TITRATED TO 3L NC WITH SPO2 OF 95%. BREATH SOUNDS WERE COARSE. HHN TX GIVEN ORDERED WITH NO ADVERSE REACTION. WILL CONTINUE TO MONITOR PT.
[2019-06-18] MEDS: ATENOLOL 25 MG TAB GT SCH (21:05)
[2019-06-18] MEDS: PIPERACILLIN/TAZOBACTAM 3.375 GM in DEXTROSE 5% 50 ML IV SCH (21:05)
--- NOTE | 2019-06-18 21:05 | NUR ---
ALL SCHEDULED MEDS WERE GIVEN THROUGH G-TUBE PER ORDER. NO ASE NOTED. TOLERATED IT WELL. WILL CONTINUE TO MONITOR.
[2019-06-18] MEDS: DOCUSATE 100 MG/10 ML UDC GT SCH (21:06)
[2019-06-18] MEDS: VALPROIC ACID 250 MG/5 ML UDC GT SCH (21:06)
[2019-06-18] MEDS: OSELTAMIVIR PHOSPHATE 75 MG CAP PO SCH (21:06)
--- NOTE | 2019-06-18 22:49 | NUR ---
CHECKED PATIENT. PATIENT IS AWAKE MAKING NOISES. NO DISTRESS NOTED. WILL CONTINUE TO MONITOR.
[2019-06-19] VITALS: BP 117/76
--- NOTE | 2019-06-19 | NUR ---
VITALS WERE TAKEN. PATIENT IS IN STABLE CONDITION. WILL CONTINUE TO MONITOR.
[2019-06-19] MEDS: IPRATROPIUM 0.02% 0.5 MG/2.5 ML NEBU INH SCH ×4 (01:40→20:25)
--- NOTE | 2019-06-19 02:28 | NUR ---
CHECKED PATIENT. PATIENT SLEEPING RESPIRATION EVEN UNLABORED ON ROOM AIR. NO DISTRESS NOTED. WILL CONTINUE TO MONITOR. Addendum: 06/19/19 at 0228 by Payton Cullen RN ON 2L NC O2
[2019-06-19 04:00] VITALS: BP 106/82
--- NOTE | 2019-06-19 04:00 | NUR ---
VITALS WERE TAKEN. PATIENT IN STABLE CONDITION. NO DISTRESS NOTED. WILL CONTINUE TO MONITOR.
[2019-06-19] MEDS: LORazepam 2 MG/ML VIAL IVP PRN ×2 (04:37→23:54)
[2019-06-19] MEDS: PIPERACILLIN/TAZOBACTAM 3.375 GM in DEXTROSE 5% 50 ML IV SCH ×3 (04:37→20:34)
--- NOTE | 2019-06-19 04:37 | NUR ---
PATIENT IS SCREAMING AND AGITATED. PRN ATIVAN GIVEN PER ORDER. WILL CONTINUE TO MONITOR.
[2019-06-19] MEDS ORDERED: LEVOTHYROXINE 0.1 MG TAB ONE (05:46)
[2019-06-19] MEDS ORDERED: LEVOTHYROXINE 0.025 MG TAB ONE (05:46)
[2019-06-19] MEDS ORDERED: CRUSHER, PILL MC ONE (05:49)
[2019-06-19] MEDS: LEVOTHYROXINE 0.1 MG, LEVOTHYROXINE 0.025 MG PO SCH ×2 (05:52)
[2019-06-19 06:32] LABS: ANION GAP 9.3 (8-16); CREATININE 0.7 mg/dL (0.6-1.3); POTASSIUM 4.3 mmol/L (3.5-5.1)
--- NOTE | 2019-06-19 07:16 | NUR ---
ENDORSED PATIENT TO DAY SHIFT NURSE. PATIENT IS IN STABLE CONDITION.
--- NOTE | 2019-06-19 07:17 | NUR ---
RECEIVED BEDSIDE REPORT FROM NIGHT NURSE, PT IS STABLE, NO SIGNS OF RESPIRATORY DISTRESS NOTED, PT IS SALINE LOCK WITH A RAC 20G, SAFETY MEASURES IN PLACE, R HAND HAS RESTRAINS, SKIN INTACT, WILL CONTINUE TO MONITOR.
[2019-06-19 08:00] VITALS: BP 116/79
--- NOTE | 2019-06-19 08:28 | NUR ---
PATIENT HAS BEEN SCREENED AND CATEGORIZED HIGH NUTRITION RISK. PATIENT WILL BE SEEN WITHIN 1-2 DAYS OF ADMISSION. 06/19/19-06/20/[address]
[2019-06-19 08:41] LABS: HEMATOCRIT 33.6 % (36-52); HEMOGLOBIN 12.8 g/dL (12.0-18.0); MEAN CORPUSCULAR HEMOGLOBIN 33 pg (27-31); MEAN CORPUSCULAR HGB CONC 38 g/dL (33-37); MEAN CORPUSCULAR VOLUME 86.3 fL (80-94); PLATELET COUNT (AUTO) 558 K/uL (140-450); RED BLOOD CELL COUNT(AUTO) 3.89 MIL/uL (4.20-6.10); RED CELL DISTRIBUTION WIDTH 13.8 % (11.6-13.7)
[2019-06-19] MEDS ORDERED: NON-FORMULARY ITEM (Levothyroxine Sodium* (Synthroid*) 0.125 MG) PO SCH (09:00)
[2019-06-19 09:26] LABS: EOSINOPHILS % (MANUAL) 4 % (0-4); LYMPHOCYTES % (MANUAL) 40 % (20-46); MONOCYTES % (MANUAL) 7 % (5-12)
[2019-06-19] MEDS: DOCUSATE 100 MG/10 ML UDC GT SCH ×2 (09:28→20:34)
[2019-06-19] MEDS: VALPROIC ACID 250 MG/5 ML UDC GT SCH ×2 (09:28→20:34)
[2019-06-19] MEDS: FERROUS SULFATE 300 MG/5 ML UDC PO SCH (09:29)
[2019-06-19] MEDS: BENZTROPINE 1 MG TAB GT SCH (09:30)
[2019-06-19] MEDS: ASCORBIC ACID 500 MG TAB GT SCH (09:30)
[2019-06-19] MEDS: QUEtiapine FUMARATE 100 MG TAB GT SCH ×3 (09:31→17:16)
[2019-06-19] MEDS: OSELTAMIVIR PHOSPHATE 75 MG CAP PO SCH ×2 (09:31→20:34)
[2019-06-19] MEDS: clonazePAM 0.5 MG TAB GT SCH ×3 (09:33→17:18)
--- NOTE | 2019-06-19 11:11 | NUR ---
Water Superintendent Note: Patient is a 48-year-old male admitted for pneumonia. Patient has PMHX of hypertension, seizure disorder, hypothyroidism, constipation, and is nonverbal. Patient was admitted from a custodial. KRUNAL contacted home phone number on face sheet: [phone] three times - line was busy. KRUNAL also called Akosua Alaniz [phone] three times - line was busy. KRUNAL contacted Janet Cano [phone] and left voicemail. KRUNAL will follow up to complete assessment. Addendum: 06/21/19 at 0908 by Elliot Bartholomew Basic Screen: Yes High Risk DC Screen [place]: AKOSUA ALANIZ [place] Relationship: OTHER RELATIONSHIP Pre-Admission Living Arrangements: Other Other: [facility] Current Home Health Name/Tel: N/A Current /02 Name/Tel: [facility] Current Hospice Name/Tel: N/A Current Dialysis Name/Tel: N/A Healthcare Decision Maker: Patient Advance Directive No Physician Orders for Life Sustaining Treatment Form No Patient/Family Have Educational Needs No Information Taught: Advance Directive Discipline: Case Mgt/Social Svcs Tentative Discharge Plan/Destination: Other Other: [facility] Will require assistance post discharge: No Referred to Manager Cancer: No Tentative Discharge Plan Summary: Patient is a 48-year-old male admitted for pneumonia. Patient has PMHX of hypertension, seizure disorder, hypothyroidism, constipation, and is nonverbal. Patient was admitted from custodial [facility]. SW contacted custodial and spoke to nurse Maria Del Rosario [phone]. Per Maria Del Rosario, patient utilizes a wheelchair and requires total assistance with ADLs. Maria Del Rosario stated that patient has no conservator and that patient's healthcare decision maker is [facility] Worker - Beverly Ratliff [phone]. Tentative discharge plan is for patient to return to [facility]. No further needs identified. Signature: MALIK Tolentino Date: Jun 21, 2019 Time: 08:58
--- NOTE | 2019-06-19 11:19 | NUR ---
PT ASLEEP IN BED, RESPIRATIONS ARE EVEN AND UNLABORED ON ROOM AIR, NO SIGNS OF DISTRESS NOTED, SAFETY MEASURES IN PLACE, WILL CONTINUE TO MONITOR.
[2019-06-19 12:00] VITALS: BP 110/66
[2019-06-19] MEDS: POLYETHYLENE GLYCOL 17 GM/PKT GT SCH (12:54)
--- NOTE | 2019-06-19 14:00 | NUR ---
GAVE PT ORDERED MEDICATION, EDUCATION GIVEN, NO RESIDUAL IN G-TUBE, PT STABLE, NO SIGNS OF DISTRESS NOTED, SAFETY MEASURES IN PLACE.
--- NOTE | 2019-06-19 14:49 | NUR ---
06/19/19 RD INITIAL ASSESSMENT COMPLETED PLEASE REFER TO NUTRITION ASSESSMENT UNDER CARE ACTIVITY FOR ESTIMATED NUTRITIONAL NEEDS. 1. CONTINUE NPO MEDICALLY APPROPRIATE 2. IF/WHEN PATIENT IS MEDICALLY STABLE CONSIDER STARTING TUBE FEEDING WITH JEVITY 1.2 @ GOAL RATE 65 ML/HR X 24 HR. START FEEDING AT 25 ML/HR AND ADVANCE BY 25 ML/HR Q4H -THIS WILL PROVIDE 1872 KCAL, 86 GM OF PROTEIN AND 1258 ML OF WATER WHICH MEETS 100% OF ESTIMATED NUTRIENT NEEDS 3. RECOMMEND FREE WATER FLUSH OF [address] TO FOLLOW-UP 2-3 DAYS, HIGH RISK OCTAVIA SALMERON RD
[2019-06-19 16:00] VITALS: BP 100/71
--- NOTE | 2019-06-19 17:10 | NUR ---
GAVE ORDERED MEDICATION, PT STABLE, SAFETY MEASURES IN PLACE, WILL CONTINUE TO MONITOR.
--- NOTE | 2019-06-19 19:05 | NUR ---
GAVE REPORT TO NIGHT NURSE FOR CONTINUITY OF CARE, PT IS STABLE
--- NOTE | 2019-06-19 19:06 | NUR ---
REPORT RECEIVED FROM AM NURSE AT BEDSIDE. PT IN STABLE CONDITION. AAOX1-2. INTRODUCED SELF TO PT. BOARD UPDATED. FLACC 0. NO SOB. AFEBRILE. PT IS LEGALLY BLIND. PT IS ON SOFT WRIST RESTRAINTS DUE ON 06/20@1700 PT HAS GTUBE. ON FEEDINGS JEVITY 1.2@25ML/HR INCREASE BY 25ML/HR Q4H UNTIL GOAL OF 65ML/HR WITH 100ML H2O FLUSH Q4H. PT IS BEDBOUND. IV SITE R AC 20G SL PATENT AND INTACT. SKIN WARM, DRY, AND INTACT WITH NO OPEN WOUNDS. BED LOCKED IN LOW POSITION. CALL HORN WITHIN REACH. SAFETY PRECAUTION IN PLACE. ALL NEEDS MET AT THIS TIME.
[2019-06-19 20:00] VITALS: BP 93/53
--- NOTE | 2019-06-19 20:25 | NUR ---
RECEIVED PT FROM AM SHIFT. PT IN NO APPARENT RESPIRATORY DISTRESS AT THIS TIME; HR 63, RR 20, SPO2 93% ON ROOM AIR. BREATH SOUNDS WERE COARSE. HHN TX GIVEN ORDERED WITH NO ADVERSE REACTION. WILL CONTINUE TO MONITOR PT.
--- NOTE | 2019-06-19 20:34 | NUR ---
COLACE, DEPAKENE, AND TAMIFLU GIVEN THROUGH GTUBE. ZOSYN HUNG AND RUNNING. 0ML RESIDUAL OF FEEDING. PT TOLERATING WELL. TENORMIN HELD DUE TO BP DECREASED AT 93/53. WILL REASSESS AND SEE IF NEEDS TO BE GIVEN LATER.
[2019-06-19] MEDS: ATENOLOL 25 MG TAB GT SCH (21:00)
--- NOTE | 2019-06-19 21:00 | NUR ---
ATENOLOL HELD DUE TO DECREASED BP.
--- NOTE | 2019-06-19 21:35 | NUR ---
FEEDING INCREASED TO 50ML/HR PER ORDER.
--- NOTE | 2019-06-19 23:54 | NUR ---
ATIVAN GIVEN FOR AGITATION. PT TOLERATED WELL.
[2019-06-20] VITALS: BP 110/67
[2019-06-20] MEDS: IPRATROPIUM 0.02% 0.5 MG/2.5 ML NEBU INH SCH ×4 (01:23→19:46)
--- NOTE | 2019-06-20 02:00 | NUR ---
PT AWAKE AND ALERT YELLING NONSENSE ALOUD. NO S/S OF DISTRESS NOTED. WILL CONTINUE TO MONITOR.
[2019-06-20 04:00] VITALS: BP 111/72
[2019-06-20] MEDS: PIPERACILLIN/TAZOBACTAM 3.375 GM in DEXTROSE 5% 50 ML IV SCH ×3 (04:02→22:28)
--- NOTE | 2019-06-20 04:02 | NUR ---
NEPTALI HUNG AND RUNNING. PT TOLERATING WELL.
[2019-06-20] MEDS: LORazepam 2 MG/ML VIAL IVP PRN (04:47)
--- NOTE | 2019-06-20 04:47 | NUR ---
ATIVAN GIVEN FOR AGITATION. PT TOLERATED WELL. Addendum: 06/20/19 at 0616 by Jorge Castro RN RESIDUAL OF 0ML. INCREASED TO 65ML/HR.
[2019-06-20] MEDS ORDERED: LEVOTHYROXINE 0.025 MG TAB ONE (05:30)
[2019-06-20] MEDS ORDERED: LEVOTHYROXINE 0.1 MG TAB ONE (05:30)
[2019-06-20] MEDS: LEVOTHYROXINE 0.1 MG, LEVOTHYROXINE 0.025 MG PO SCH ×2 (05:34)
--- NOTE | 2019-06-20 05:34 | NUR ---
SYNTHROID GIVEN THROUGH GTUBE. PT TOLERATED WELL.
[2019-06-20 06:24] LABS: ANION GAP 11.3 (8-16); CARBON DIOXIDE 30.5 mmol/L (21-32); CREATININE 0.7 mg/dL (0.6-1.3); POTASSIUM 3.8 mmol/L (3.5-5.1)
--- NOTE | 2019-06-20 06:30 | NUR ---
ATTEMPTED TO CALL DR MATHEW 3 TIMES. DID NOT CALL BACK.
[2019-06-20 07:08] LABS: HEMOGLOBIN 12.7 g/dL (12.0-18.0); MEAN CORPUSCULAR HEMOGLOBIN 30 pg (27-31); MEAN CORPUSCULAR HGB CONC 34 g/dL (33-37); MEAN CORPUSCULAR VOLUME 85.9 fL (80-94); PLATELET COUNT (AUTO) 302 K/uL (140-450); RED BLOOD CELL COUNT(AUTO) 4.31 MIL/uL (4.20-6.10); RED CELL DISTRIBUTION WIDTH 13.1 % (11.6-13.7); WHITE BLOOD COUNT (AUTO) 5.8 K/uL (4.8-10.8)
--- NOTE | 2019-06-20 07:25 | NUR ---
RECEIVED BEDSIDE REPORT FROM NIGHTSHIFT NURSE. PT RESTING IN BED UPON ARRIVAL. FLACC 0. SKIN WARM AND DRY TO TOUCH. RESPIRATIONS EVEN AND UNLABORED WITH NO SOB OR RESPIRATORY DISTRESS. IV SITE IN RAC 20G IS CLEAN, DRY, AND INTACT. SAFETY MEASURES IN PLACE. WILL CONTINUE TO MONITOR.
[2019-06-20 08:00] VITALS: BP 124/79
[2019-06-20 08:04] LABS: EOSINOPHILS % (MANUAL) 3 % (0-4); LYMPHOCYTES % (MANUAL) 28 % (20-46); MONOCYTES % (MANUAL) 12 % (5-12)
[2019-06-20] MEDS: BENZTROPINE 1 MG TAB GT SCH (10:09)
[2019-06-20] MEDS: OSELTAMIVIR PHOSPHATE 75 MG CAP PO SCH ×2 (10:10→22:28)
[2019-06-20] MEDS: QUEtiapine FUMARATE 100 MG TAB GT SCH ×3 (10:10→17:33)
[2019-06-20] MEDS: clonazePAM 0.5 MG TAB GT SCH ×3 (10:13→17:31)
--- NOTE | 2019-06-20 10:13 | NUR ---
ADMINISTERED MEDICATION PRESCRIBED PER MD ORDER. PT TOLERATED WELL. MEDICATION EDUCATION PERFORMED. PT APHASIC AND UNABLE TO VERBALIZE UNDERSTANDING. SAFETY MEASURES IN PLACE. WILL CONTINUE TO MONITOR.
[2019-06-20] MEDS: FERROUS SULFATE 300 MG/5 ML UDC PO SCH (10:22)
[2019-06-20] MEDS: VALPROIC ACID 250 MG/5 ML UDC GT SCH ×2 (10:22→22:27)
[2019-06-20] MEDS: DOCUSATE 100 MG/10 ML UDC GT SCH ×2 (10:22→22:22)
[2019-06-20] MEDS: ASCORBIC ACID 500 MG TAB GT SCH (10:25)
[2019-06-20 12:00] VITALS: BP 141/91
--- NOTE | 2019-06-20 12:15 | NUR ---
HOURLY ROUNDING. PT RESTING IN BED UPON ARRIVAL. FLACC 0. SKIN WARM AND DRY TO TOUCH. RESPIRATIONS EVEN AND UNLABORED WITH NO SOB OR RESPIRATORY DISTRESS. SAFETY MEASURES IN PLACE. WILL CONTINUE TO MONITOR.
[2019-06-20] MEDS: POLYETHYLENE GLYCOL 17 GM/PKT GT SCH (13:34)
--- NOTE | 2019-06-20 13:50 | NUR ---
SCREEN FOR LOW COLIN SCALE AT RISK, CONTINUE TO FOLLOW PRESSURE ULCER PREVENTION INTERVENTIONS. -TURN AND REPOSITION PATIENT Q 2H -ASSESS AND MONITOR SKIN CONDITION DURING POSITION CHANGE -OFFLOAD BILATERAL HEELS BY PLACING PILLOWS UNDER CALVES AT ALL TIMES, UNLESS OTHERWISE CONTRAINDICATED -PRESSURE REDISTRIBUTION BY PLACING PILLOWS AND OFFLOADING SACRALCOCCYX -KEEP SKIN CLEAN AND DRY AT ALL TIMES.
[2019-06-20 16:00] VITALS: BP 130/85
--- NOTE | 2019-06-20 19:10 | NUR ---
RECIEVED PT AAOX1- RESPONDING BY HEAD MOVING AND EYE BLINKING WHEN CALLING HIS NAME . NON VERBAL .W/ HX OF S2 , ON . IV SITE INTACT AND PATENT . NID - O2SAT WNL . ON G TUBE FEEDING - WELL TOLERATED . LOW COLIN SCALE - SKIN INTACT - BEDBOUND . ON SAFETY / FALL / S2 PRECAUTION PROTOCOL- BED ALARM ON , CALL LIGHT WITHIN REACH . POC DISCUSSED BUT POOR UNDERSTANDING DUE TO MENTAL STATUS . ON NON LICENSED NUCLEAR EQUIPMENT OPERATOR . WILL CONT. TO MONITOR. Addendum: 06/21/19 at 0301 by Fatoumata Rodriguez RN PT ON SOFT WRIST RESTRAINT - WILL CONT. TO MONITOR. NO SIGNS OF INJURY NOTED AT THIS TIME.
--- NOTE | 2019-06-20 19:10 | NUR ---
ENDORSED AT BEDSIDE TO NIGHTSHIFT NURSE. PT RESTING IN BED UPON ARRIVAL. FLACC 0. SKIN WARM AND DRY TO TOUCH. RESPIRATIONS EVEN AND UNLABORED WITH NO SOB OR RESPIRATORY DISTRESS. SAFETY MEASURES IN PLACE. PT IS STABLE
--- NOTE | 2019-06-20 19:50 | NUR ---
PLACED TX ON PATIENT AND THE PATIENT RIPPED IT OFF. PT IS IN NO DISTRESS. SATURATION IS GOOD. B/S IS CLEAR. WILL CONT TO MONITOR
[2019-06-20 20:00] VITALS: BP 133/86
--- NOTE | 2019-06-20 22:00 | NUR ---
MADE ROUNDS . NO SIGNS OG ACUTE DISTRESS NOTED AT THIS TIME . WILL CONT. TO MONITOR. BED ALARM ON.
[2019-06-20] MEDS ORDERED: CRUSHER, PILL MC ONE (22:26)
[2019-06-20] MEDS: ATENOLOL 25 MG TAB GT SCH (22:28)
[2019-06-21] VITALS: BP 128/78
--- NOTE | 2019-06-21 | NUR ---
MADE ROUNDS . NO SIGNS OF ACUTE DISTRESS NOTED AT THIS TIME. O2 SAT WNL . WILL CONT. TO MONITOR.
[2019-06-21] MEDS: IPRATROPIUM 0.02% 0.5 MG/2.5 ML NEBU INH SCH ×4 (01:00→18:52)
--- NOTE | 2019-06-21 01:07 | NUR ---
PT HAS BEEN NON COMPLIANT WITH BREATHING TX. 0100 TX WAS NOT GIVEN. PT IS ASLEEP. NO RESPIRATORY DISTRESS NOTED. WILL CONT TO MONITOR
--- NOTE | 2019-06-21 02:00 | NUR ---
MADE ROUNDS . SLEEPING - CHEST RISE AND FALL EQUALLY - WILL CONT. TO MONITOR.
[2019-06-21 04:00] VITALS: BP 122/65
--- NOTE | 2019-06-21 04:00 | NUR ---
MADE ROUNDS , NO SIGNS OF DISTRESS NOTED AT THIS TIME , WILL CONT. TO MONITOR.
[2019-06-21] MEDS: PIPERACILLIN/TAZOBACTAM 3.375 GM in DEXTROSE 5% 50 ML IV SCH ×2 (05:09→12:30)
[2019-06-21] MEDS ORDERED: LEVOTHYROXINE 0.025 MG TAB ONE (05:53)
[2019-06-21] MEDS ORDERED: LEVOTHYROXINE 0.1 MG TAB ONE (05:54)
--- NOTE | 2019-06-21 06:00 | NUR ---
SLEEPING CHEST RISE AND FALL EQUALLY - WILL CONT. TO MONITOR.
[2019-06-21] MEDS: LEVOTHYROXINE 0.1 MG, LEVOTHYROXINE 0.025 MG PO SCH ×2 (06:06)
[2019-06-21 06:28] LABS: ANION GAP 10.8 (8-16); CARBON DIOXIDE 31.5 mmol/L (21-32); CREATININE 0.7 mg/dL (0.6-1.3); POTASSIUM 4.3 mmol/L (3.5-5.1)
[2019-06-21 06:29] LABS: BASOPHILS % (AUTO) 0.5 % (0.0-2.0); EOSINOPHILS # (AUTO) 0.3 K/uL (0-0.4); EOSINOPHILS % (AUTO) 4.6 % (0.0-4.0); HEMATOCRIT 40.1 % (36-52); HEMOGLOBIN 13.7 g/dL (12.0-18.0); LYMPHOCYTES # (AUTO) 2.2 K/uL (2.0-11.5); MEAN CORPUSCULAR HEMOGLOBIN 30 pg (27-31); MEAN CORPUSCULAR HGB CONC 34 g/dL (33-37); MEAN CORPUSCULAR VOLUME 85.9 fL (80-94); MONOCYTES # (AUTO) 0.8 K/uL (0.8-1.0); MONOCYTES % (AUTO) 12.9 % (1.7-9.3); NEUTROPHILS # (AUTO) 2.9 K/uL (1.8-7.7); PLATELET COUNT (AUTO) 304 K/uL (140-450); RED BLOOD CELL COUNT(AUTO) 4.67 MIL/uL (4.20-6.10); RED CELL DISTRIBUTION WIDTH 13.5 % (11.6-13.7); WHITE BLOOD COUNT (AUTO) 6.3 K/uL (4.8-10.8)
--- NOTE | 2019-06-21 07:28 | NUR ---
ENDORSED TO AM SHIFT FOR CONT. OF CARE W/ STABLE CONDITION.
--- NOTE | 2019-06-21 07:33 | NUR ---
RECEIVED FROM STRAW HAT PRESSER NURSE, NISREEN, PT IS AWAKE AND ON SOFT WRIST RESTRAINT DUE TO PT'S CAUSING HARM TO HIMSELF AND OTHERS, PT HAS A G-TUBE IN PLACE WITH JEVITY 1.2 AT 65ML/HR AND WATER FLUSHING OF 100ML Q4H AND A PERIPHERAL LINE ON THE RT AC G.20 ON SALINE LOCK, ON ROOM AIR, PT IS SHOUTING, PT'S BASELINE, BUT NO SIGN OF DISTRESS NOTED AND WILL BE CONTINUED TO BE MONITORED.
[2019-06-21 08:00] VITALS: BP 146/95
[2019-06-21] MEDS: DOCUSATE 100 MG/10 ML UDC GT SCH (09:28)
[2019-06-21] MEDS: FERROUS SULFATE 300 MG/5 ML UDC PO SCH (09:28)
[2019-06-21] MEDS: OSELTAMIVIR PHOSPHATE 75 MG CAP PO SCH (09:29)
[2019-06-21] MEDS: VALPROIC ACID 250 MG/5 ML UDC GT SCH (09:29)
[2019-06-21] MEDS: ASCORBIC ACID 500 MG TAB GT SCH (09:31)
[2019-06-21] MEDS: BENZTROPINE 1 MG TAB GT SCH (09:31)
--- NOTE | 2019-06-21 09:31 | NUR ---
PT'S SCHEDULED MEDICATIONS WERE GIVEN VIA G-TUBE, NO RESIDUAL NOTED, PT'S BP IS 146/95, PULSE IS65, O2 SATURATION IS 100%, TEMP IS 97.5, RESPIRATION IS 18/MIN, NO SIGN OF DISTRESS NOTED AND WILL MONITOR PT.
[2019-06-21] MEDS: QUEtiapine FUMARATE 100 MG TAB GT SCH ×3 (09:32→16:18)
[2019-06-21] MEDS: clonazePAM 0.5 MG TAB GT SCH ×3 (09:34→16:18)
[2019-06-21 12:00] VITALS: BP 129/89
[2019-06-21] MEDS: POLYETHYLENE GLYCOL 17 GM/PKT GT SCH (12:28)
--- NOTE | 2019-06-21 12:30 | NUR ---
PT WAS GIVEN MEDICATIONS VIA G-TUBE, 5ML RESIDUAL NOTED, TOLERATED MEDICATIONS AND WILL CONTINUE TO BE MONITORED, IV ZOSYN VIA PIGGYBACK WAS GIVEN WELL, WILL MONITOR P[T.
--- NOTE | 2019-06-21 15:37 | NUR ---
JOYCE SEGURA CALLED AND MADE A TELEPHONE ORDER THAT PT CAN BE DISCHARGE BACK TO THE [facility] AND MD GUALBERTO SAID THAT HE WILL PLACE AN ORDER, ACKNOWLEDGED AND WILL CARRY OUT.
[2019-06-21 16:00] VITALS: BP 131/79
--- NOTE | 2019-06-21 16:18 | NUR ---
PT WAS GIVEN SCHEDULED MEDICATIONS VIA G-TUBE, RESIDUAL IS 5ML, WILL MONITOR PT.
--- NOTE | 2019-06-21 17:42 | NUR ---
CONTACTED MS JOSE MILLARD PIG CONVEYOR OPERATOR IN [employer] REGARDING PT'S DISCHARGE BACK TO THEIR FACILITY TODAY. ETA OF THEIR FACILITY TRANSPORT IS AT 1830 HRS. NATHANIEL ASSIGNED MADE AWARE.
--- NOTE | 2019-06-21 18:26 | NUR ---
DISCHARGED PT WITH BOARD AND CARE PERSONNEL, VIA WHEELCHAIR, IV LINE AND ARM BAND REMOVED, G- TUBE REINFORCED WITH ABDOMINAL BINDER AND DRESSING, PT IS MENTALLY CHALLENGE AND DISCHARGED INSTRUCTIONS WERE GIVEN TO CARETAKERS AND VERBALIZED UNDERSTANDING PT IS STABLE AT THIS TIME..
== END 2019-06-21 18:25 | disposition home or self-care (01) | DRG 871 ==
LOC: MED 09:56 → MMU 12:24
PROVIDERS: ADMIT Preventive Medicine Preventive Medicine/Occupational Environmental Medicine; ATTEND Preventive Medicine Preventive Medicine/Occupational Environmental Medicine
DX: A41.50 Gram-negative sepsis, unspecified (principal); J69.0 Pneumonitis due to inhalation of food and vomit; J96.00 Acute respiratory failure, unspecified whether with hypoxia or hypercapnia; E03.9 Hypothyroidism, unspecified; G40.909 Epilepsy, unspecified, not intractable, without status epilepticus; I10 Essential (primary) hypertension; I45.10 Unspecified right bundle-branch block; R13.10 Dysphagia, unspecified; D69.6 Thrombocytopenia, unspecified; Z93.1 Gastrostomy status
CPT/HCPCS: 36415; 36600; 70450; 71045; 80048; 80053; 80305; 81001; 82803; 83605; 84484; 85025; 85651; 86140; 87040; 87081; 87804; 93005; 94640; 96365; 99285; G0480; G0482; J2060; J2543; J7030; J7060; J7613; J7620; J7644; Q0092

== ENCOUNTER 2019-06-22 10:36 | Inpatient (IN) | payer OTHER, MEDICAID ==
[~2019-06-22] VITALS: Ht 162.6 cm; Wt 70.3 kg
--- NOTE | 2019-06-22 10:44 | NUR ---
DR. MAC AT BEDSIDE.
[2019-06-22] MEDS ORDERED: NACL 0.9% 1,000 ML IV ONE ×2 (10:45)
[2019-06-22] MEDS ORDERED: ALBUTEROL 0.083% 2.5 MG/3 ML NEBU INH ONE (10:45)
[2019-06-22 10:56] VITALS: BP 137/96
--- NOTE | 2019-06-22 11:01 | NUR ---
LAB AT BEDSIDE.
--- NOTE | 2019-06-22 11:01 | NUR ---
XR AT BEDSIDE.
[2019-06-22 11:49] LABS: BASOPHILS # (AUTO) 0.1 K/uL (0.00-0.22); BASOPHILS % (AUTO) 0.6 % (0.0-2.0); EOSINOPHILS # (AUTO) 0.3 K/uL (0-0.4); EOSINOPHILS % (AUTO) 2.9 % (0.0-4.0); HEMATOCRIT 44.4 % (36-52); HEMOGLOBIN 14.8 g/dL (12.0-18.0); LYMPHOCYTES # (AUTO) 3.2 K/uL (2.0-11.5); LYMPHOCYTES % (AUTO) 35.5 % (20.5-51.1); MEAN CORPUSCULAR HEMOGLOBIN 29 pg (27-31); MEAN CORPUSCULAR HGB CONC 33 g/dL (33-37); MEAN CORPUSCULAR VOLUME 85.8 fL (80-94); MONOCYTES # (AUTO) 0.8 K/uL (0.8-1.0); MONOCYTES % (AUTO) 8.5 % (1.7-9.3); NEUTROPHILS # (AUTO) 4.7 K/uL (1.8-7.7); NEUTROPHILS % (AUTO) 52.5 % (42.2-75.2); PLATELET COUNT (AUTO) 339 K/uL (140-450); RED BLOOD CELL COUNT(AUTO) 5.17 MIL/uL (4.20-6.10); RED CELL DISTRIBUTION WIDTH 13.4 % (11.6-13.7)
[2019-06-22 11:59] LABS: APPEARANCE,URINE CLEAR (CLEAR); BILIRUBIN,URINE NEGATIVE (NEGATIVE); BLOOD, URINE NEGATIVE (NEGATIVE); COLOR,URINE AMBER (YELLOW); LEUKOCYTE ESTERASE ,URINE NEGATIVE (NEGATIVE); NITRITE, URINE NEGATIVE (NEGATIVE); UGLUCOSE NEGATIVE (NEGATIVE)
--- NOTE | 2019-06-22 12:04 | NUR ---
48 Y/M BIBA FOR SUDDEN ONSET SOB PER BOARD AND CARE. SOB WAS NONPROVOKED 45 MINUTES PRIOR TO EMS BEING CALLED. PT WAS SEEN AT [facility] ON 06/19 AND DX WITH PNEUMONIA. PT WAS DISCHARGED YESTERDAY. SOB CONTINUES TODAY. PT TACHYPNIC AT 38, RR EVEN, PT GRUNTING. PT NONVERBAL. RHONCI B UPPER AIRWAY. HX- HYPOTHYROIDISM, EPILEPSY, HTN, PNEUMONIA
--- NOTE | 2019-06-22 12:05 | NUR ---
INDWELLING THOMPSON INSERTED USING STERILE PROCEDURE, PT TOLERATED WELL. STAT URINE SENT TO LAB.
[2019-06-22 12:12] LABS: ALBUMIN 3.9 g/dL (3.4-5.0); ANION GAP 17.8 (8-16); CARBON DIOXIDE 24.2 mmol/L (21-32); TOTAL BILIRUBIN 0.4 mg/dL (0.0-1.0)
[2019-06-22 12:20] LABS: RBC,URINE 0 /HPF (0-5); WBC,URINE 0-5 /HPF (0-5)
[2019-06-22] MEDS ORDERED: PIPERACILLIN/TAZOBACTAM 3.375 GM in DEXTROSE 5% 50 ML IV ONE (12:25)
[2019-06-22] MEDS ORDERED: PIPERACILLIN/TAZOBACTAM 3.375 GM VIAL IV ONE (12:30)
--- NOTE | 2019-06-22 13:43 | NUR ---
CAREGIVER AT BEDSIDE.
--- NOTE | 2019-06-22 13:43 | NUR ---
PT ASLEEP IN BED. VSS, RR EVEN AND UNLABORED. NO DISTRESS.
--- NOTE | 2019-06-22 14:13 | NUR ---
Patient will be admitted to care of Dr Jno. Admited to M/S room 118. Belongings list completed. Report given by CLIFFORD Liu to CLIFFORD Olivera.
[2019-06-22 14:15] VITALS: BP 120/82
--- NOTE | 2019-06-22 14:15 | NUR ---
RECEIVED FROM PT. FROM ER NURSES, NATHANIEL & JAIME, VIA ERLIN. PT. IS MENTALLY DISABLED WITH THOMPSON CATHETER IN PLACE. ON O2 2L VIA NASAL CANNULA. G-TUBE INTACT AND CLEAN. ABDOMINAL BINDER OLD AND DIRTY. PERIPHERAL LINE ON THE RIGHT AC 20G, INTACT WITH 2 IV NS BAGS. 1L NS BAG AND THE OTHER WITH 800ML INFUSING. EXCORIATION ON LEFT HEEL NOTED. PT. IS COMBATIVE AND SHOUTING. NO SIGNS OF DISTRESS NOTED. WILL CONTINUE TO MONITOR.
--- NOTE | 2019-06-22 14:20 | NUR ---
PT'S VITAL SIGNS IS TAKEN AND BP 120/82, HR 90, RR20, O2 99%, TEMP 98.2.
--- NOTE | 2019-06-22 14:30 | NUR ---
PHYSICAL ASSESSMENT DONE TO THE PATIENT. G-TUBE SITE CLEANED AND REINFORCED WITH DRESSING. ABDOMINAL BINDER CHANGED. LEFT HEEL EXCORIATION IS REINFORCED WITH A VERSATEL DRESSING. YELLOW GOWN, YELLOW ARMBAND, HEART MONITOR IN PLACE. THOMPSON CATHETER INTACT, DATED WITH 300ML OF URINE COLLECTED. PERIPHERAL LINE INTACT AND PATENT. PT. HAD A BOWEL MOVEMENT, CLEANED AND MADE COMFORTABLE. WILL CONTINUE TO MONITOR.
--- NOTE | 2019-06-22 14:45 | NUR ---
MRSA SWAB DONE AND SAMPLE SENT TO LAB.
--- NOTE | 2019-06-22 15:51 | NUR ---
RECEIVED TELEPHONE ORDERS FROM DR. MATHEW FOR PT'S TUBE FEEDING, CODE STATUS, NON-BEHAVIORAL RESTRAINTS, AND PHYSICIAN CONSULT. TELEPHONE ORDERS READ BACK AND VERIFIED. WILL CARRY OUT ORDERS.
[2019-06-22] MEDS ORDERED: LEVOFLOXACIN 750 MG/D5W PREMIX 150 ML IV SCH (17:30)
--- NOTE | 2019-06-22 19:00 | NUR ---
STARTED G-TUBE FEEDING OF JEVITY 1.2 AT 65ML/HR WITH WATER FLUSHES 100ML/HR Q4H NOW.
--- NOTE | 2019-06-22 19:13 | NUR ---
DR. MATHEW MADE TELEPGHONE ORDER TO CONTINUE ALL PT'S HOME MEDICATIONS. ACKNOWLEDGED, VERIFIED AND WILL CARRY OUT ORDER.
[2019-06-22] MEDS ORDERED: ACETAMINOPHEN 325 MG TAB GT PRN (19:15)
[2019-06-22] MEDS ORDERED: BENZONATATE 100 MG CAPLF PO PRN (19:15)
--- NOTE | 2019-06-22 19:20 | NUR ---
ENDORSED PT. TO CHILDBIRTH EDUCATOR NURSE, VINOD, FOR CONTINUITY OF CARE. PT. IS AWAKE.
--- NOTE | 2019-06-22 19:21 | NUR ---
RECD. RESTING IN BED, AWAKE, ALERT, CONFUSED, OCCASIONALLY SHOUTS. IV OF NS AT 100 ML/HR INFUSING, RIGHT AC G20. ON AT 2 LITERS N/C, SATURATING 96%. GT FEEDING OF JEVITY 1.2 AT 65 ML/HR INFUSING, GT SITE DRY AND INTACT, COVERED WITH BINDER. ON BILATERAL SOFT WRIST RESTRAINTS, PATIENT IS TRYING TO PULL OUT IV LINE. SAFETY MEASURES ENFORCED. SIDE RAILS UP WITH PADS FOR SEIZURE PRECAUTION. BED ON ALARM. ON BILATERAL LEG SEQUENTIALS. NO APPEARANCE OF PAIN NOTED, FLACC -0. Addendum: 06/22/19 at 3636 by Batool Cheema LVN CORRECTION: SOFT WRIST RESTRAINT ONLY IN THE RIGHT ARM, LEFT ARM IS WEAK CAN'T PULL OUT THINGS.
--- NOTE | 2019-06-22 19:30 | NUR ---
Patient's Plan of Care was discussed and reviewed with RF MICROWAVE ENGINEER: YOLY
[2019-06-22 20:00] VITALS: BP 138/80
[2019-06-22] MEDS: CLINDAMYCIN 600 MG in DEXTROSE 5% 50 ML IV SCH (21:11)
--- NOTE | 2019-06-22 21:50 | NUR ---
FOLLOW UP WITH TELE PHARMACY VERIFICATION OF NIGHT MEDS ORDERED BY .
--- NOTE | 2019-06-22 22:20 | NUR ---
RESIDUAL CHECKED - 5 ML, GT FEEDING WELL TOLERATED. PATIENT IS TRYING TAKE OUT BINDER COVERING GT SITE. LAUGHING TO SELF AND SAYING INCOMPREHENSIBLE WORDS.
[2019-06-22] MEDS: DOCUSATE 100 MG/10 ML UDC GT SCH (22:24)
[2019-06-22] MEDS: VALPROIC ACID 250 MG/5 ML UDC GT SCH (22:30)
[2019-06-22] MEDS: ATENOLOL 25 MG TAB GT SCH (22:30)
[2019-06-22] MEDS ORDERED: CRUSHER, PILL MC ONE (22:35)
--- NOTE | 2019-06-22 23:40 | NUR ---
DR. CONCEPCION CAME TO CHECK PATIENT. WILL FOLLOW UP WITH ANY NEW ORDERS.
[2019-06-23] VITALS: BP 117/73
--- NOTE | 2019-06-23 00:30 | NUR ---
SLEEPING COMFORTABLY IN BED.
--- NOTE | 2019-06-23 02:00 | NUR ---
REPOSITIONED FOR THE THIRD TIME IN BED. ALWAYS TRYING TO GO DOWN TO THE FOOT OF THE BED.
--- NOTE | 2019-06-23 04:00 | NUR ---
SLEEPING COMFORTABLY IN BED.
[2019-06-23] MEDS: CLINDAMYCIN 600 MG in DEXTROSE 5% 50 ML IV SCH ×2 (04:56→13:35)
--- NOTE | 2019-06-23 06:00 | NUR ---
RESTING COMFORTABLY SLEEPING AFTER CLEANED BY OIL FIELD PIPELINE SUPERVISOR. NO SEIZURE NOTED, NO AGITATION AT THIS TIME.
[2019-06-23] MEDS: LEVOTHYROXINE 0.05 MG TAB PO SCH (06:09)
--- NOTE | 2019-06-23 07:08 | NUR ---
PATIENT HAS BEEN SCREENED AND CATEGORIZED HIGH NUTRITION RISK. PATIENT WILL BE SEEN WITHIN 1-2 DAYS OF ADMISSION. 06/23/19-06/24/19 STACEY MORILLO MS, RDN
--- NOTE | 2019-06-23 07:15 | NUR ---
CONDITION REMAIN STABLE. ENDORSED TO AM SHIFT NURSE FOR CONTINUITY OF CARE.
--- NOTE | 2019-06-23 07:16 | NUR ---
RECEIVED BEDSIDE REPORT FROM TOP LIFT TRIMMER NURSE VINOD. PATIENT IN STABLE CONDITION. SKIN WARM AND DRY TO TOUCH. RESPIRATIONS EVEN AND UNLABORED, 02 2L VIA NC. IV INTACT AND PATENT. THOMPSON CATHETER IN PLACE. SAFETY MEASURES IN PLACE. BED IN LOW POSITION. BED ALARM ON. CALL LIGHT WITHIN REACH AT BEDSIDE. WILL CONTINUE TO MONITOR.
[2019-06-23 08:00] VITALS: BP 106/53
--- NOTE | 2019-06-23 09:38 | NUR ---
06/23/19 RD INITIAL ASSESSMENT COMPLETED PLEASE REFER TO NUTRITION ASSESSMENT UNDER CARE ACTIVITY FOR ESTIMATED NUTRITIONAL NEEDS. RD RECOMMENDATIONS: 1. CONTINUE JEVITY 1.2 AT 65 ML/HR X 24 HOURS WITH 100 ML FREE WATER FLUSH Q4H TOLERATED. THIS PROVIDES 1560 ML TOTAL VOLUME, 1728 KCAL, 79 GM PROTEIN, 1162 ML TOTAL FREE WATER (+ 600 ML FWF), WHICH MEETS 101% ESTIMATED KCAL NEEDS AND 94% ESTIMATED PROTEIN NEEDS. 2. CONSULT RDN PRN. 3. RD WILL F/U 2-3 DAYS; HIGH RISK. STACEY MORILLO, MS, RDN
[2019-06-23] MEDS: FERROUS SULFATE 300 MG/5 ML UDC GT SCH (10:07)
[2019-06-23] MEDS: VALPROIC ACID 250 MG/5 ML UDC GT SCH ×2 (10:07→21:03)
[2019-06-23] MEDS: DOCUSATE 100 MG/10 ML UDC GT SCH ×2 (10:07→21:04)
[2019-06-23] MEDS: BENZTROPINE 1 MG TAB GT SCH (10:07)
[2019-06-23] MEDS: QUEtiapine FUMARATE 100 MG TAB GT SCH ×3 (10:08→18:42)
[2019-06-23] MEDS: ASCORBIC ACID 500 MG TAB GT SCH (10:08)
[2019-06-23] MEDS: clonazePAM 0.5 MG TAB GT SCH ×3 (10:24→19:41)
--- NOTE | 2019-06-23 10:33 | NUR ---
CHANGED PT AFTER BOWEL MOVEMENT. BED IN LOW POSITION. RESPIRATIONS EVEN AND UNLABORED. CALL LIGHT AT BEDSIDE. WILL CONTINUE TO MONITOR.
[2019-06-23] MEDS: POLYETHYLENE GLYCOL 17 GM/PKT GT SCH (13:25)
--- NOTE | 2019-06-23 13:26 | NUR ---
STARTING NEW FEEDING SOLUTION AT THIS TIME. JEVITY 1.2 R 65 WATER FLUSH Q4H. PT TOLERATED WELL.
[2019-06-23] MEDS ORDERED: LORazepam 2 MG/ML VIAL IVP PRN (14:35)
[2019-06-23] MEDS ORDERED: ACETAMINOPHEN 650 MG/20.3 ML UDC GT PRN (14:35)
[2019-06-23] MEDS ORDERED: HYDROcodone/APAP 5/325 MG 1 TAB TAB PO PRN ×2 (14:35)
[2019-06-23] MEDS ORDERED: ONDANSETRON 4 MG/2 ML VIAL IVP PRN (14:35)
[2019-06-23] MEDS ORDERED: ALBUTEROL 0.083% 2.5 MG/3 ML NEBU INH PRN (14:35)
[2019-06-23 16:00] VITALS: BP 114/69
--- NOTE | 2019-06-23 16:20 | NUR ---
PT LYING IN BED IN STABLE CONDITION. BED IN LOW POSITION. RESPIRATIONS EVEN AND UNLABORED. CALL LIGHT AT BEDSIDE. WILL CONTINUE TO MONITOR.
[2019-06-23] MEDS: LEVOFLOXACIN 500 MG/D5W PREMIX 100 ML IV SCH (18:42)
[2019-06-23] MEDS: IPRATROPIUM 0.02% 0.5 MG/2.5 ML NEBU INH SCH (19:37)
--- NOTE | 2019-06-23 19:37 | NUR ---
GAVE REPORT TO SPRING FORMER MACHINE NURSE MARYCHUY FOR CONTINUITY OF CARE. PT IN STABLE CONDITION.
--- NOTE | 2019-06-23 19:38 | NUR ---
RECEIVED PATIENT IN STABLE CONDITION FROM AM SHIFT NURSE FOR CONTINUITY OF CARE. RESPIRATIONS EVEN, UNLABORED. CONTINUES ON O2 2L NC. IV SITE TO RIGHT AC 20G PATIENT/INTACT, FLUSHES WELL. RIGHT SWR IN PLACE. CIRCULATION TO EXTREMITY CHECKED. SKIN INTEGRITY INTACT. F/C PATENT WITH YELLOW URINE DRAINING TO GRAVITY. ABDOMEN SOFT, NONTENDER. GT PATENT, TOLERATING FEEDING WELL. NO S/SX PAIN. NO S/SX ACUTE DISTRESS. CALL LIGHT WITHIN REACH. WILL CONTINUE TO MONITOR.
--- NOTE | 2019-06-23 19:48 | NUR ---
RECEIVED PT FROM AM SHIFT. PT IN NO APPARENT RESPIRATORY DISTRESS AT THIS TIME; HR 77, RR 20, SPO2 99% ON 2L NC. BREATH SOUNDS WERE COARSE. HHN TX GIVEN ORDERED WITH NO ADVERSE REACTION. BVM AT BEDSIDE AND HOB > 30. WILL CONTINUE TO MONITOR PT.
[2019-06-23] MEDS ORDERED: VANCOMYCIN PER PHARMACY MC PRN (21:00)
[2019-06-23] MEDS: ATENOLOL 25 MG TAB GT SCH (21:04)
[2019-06-23] MEDS ORDERED: VANCOMYCIN HCL 1,500 MG in NACL 0.9% 250 ML IV SCH (21:10)
--- NOTE | 2019-06-23 21:20 | NUR ---
PATIENT AWAKE AND CONTINUES IN STABLE CONDITION. FLACC 0. NO S/SX ACUTE DISTRESS. REPOSITIONED FOR COMFORT AND TO MAINTAIN SKIN INTEGRITY. CALL LIGHT WITHIN REACH. WILL CONTINUE TO MONITOR.
--- NOTE | 2019-06-23 23:01 | NUR ---
MADE ROUNDS. PATIENT IS ASLEEP AND IN STABLE CONDITION. FLACC 0. NO S/SX ACUTE DISTRESS. CALL LIGHT WITHIN REACH. WILL CONTINUE TO MONITOR.
[2019-06-24] VITALS: BP 140/86
--- NOTE | 2019-06-24 01:00 | NUR ---
PATIENT AWAKE AND IN STABLE CONDITION. FLACC 0. NO S/SX ACUTE DISTRESS. CALL LIGHT WITHIN REACH. WILL CONTINUE TO MONITOR.
[2019-06-24] MEDS: IPRATROPIUM 0.02% 0.5 MG/2.5 ML NEBU INH SCH ×4 (01:07→19:30)
[2019-06-24] MEDS ORDERED: VANCOMYCIN 500 MG VIAL ONE (02:31)
[2019-06-24] MEDS ORDERED: VANCOMYCIN 1,000 MG VIAL ONE (02:32)
--- NOTE | 2019-06-24 03:05 | NUR ---
PATIENT ASLEEP AND IN STABLE CONDITION. FLACC 0. NO S/SX ACUTE DISTRESS. CALL LIGHT WITHIN REACH. WILL CONTINUE TO MONITOR.
--- NOTE | 2019-06-24 05:24 | NUR ---
PATIENT AWAKE AND IN STABLE CONDITION. INCONTINENT CARE PROVIDED BY STAFF. FLACC 0. NO S/SX ACUTE DISTRESS. CALL LIGHT WITHIN REACH. WILL CONTINUE TO MONITOR.
[2019-06-24] MEDS: LEVOTHYROXINE 0.05 MG TAB PO SCH (06:02)
--- NOTE | 2019-06-24 07:15 | NUR ---
RECEIVED BEDSIDE REPORT FROM CHARGE MASTER ANALYST NURSE TRUMAN. PATIENT IN STABLE CONDITION. SKIN WARM AND DRY TO TOUCH. RESPIRATIONS EVEN AND UNLABORED ON 2L O2 VIA NASAL CANNULA . IV INTACT AND PATENT. SAFETY MEASURES IN PLACE. BED IN LOW POSITION. BED ALARM ACTIVATED. CALL LIGHT WITHIN REACH. WILL CONTINUE TO MONITOR.
[2019-06-24 07:42] LABS: BASOPHILS # (AUTO) 0.1 K/uL (0.00-0.22); BASOPHILS % (AUTO) 1.5 % (0.0-2.0); EOSINOPHILS # (AUTO) 0.3 K/uL (0-0.4); EOSINOPHILS % (AUTO) 5.5 % (0.0-4.0); HEMATOCRIT 36.7 % (36-52); HEMOGLOBIN 12.3 g/dL (12.0-18.0); LYMPHOCYTES # (AUTO) 1.8 K/uL (2.0-11.5); LYMPHOCYTES % (AUTO) 29.5 % (20.5-51.1); MEAN CORPUSCULAR HEMOGLOBIN 28 pg (27-31); MEAN CORPUSCULAR HGB CONC 34 g/dL (33-37); MEAN CORPUSCULAR VOLUME 84.8 fL (80-94); MONOCYTES # (AUTO) 0.4 K/uL (0.8-1.0); NEUTROPHILS # (AUTO) 3.5 K/uL (1.8-7.7); NEUTROPHILS % (AUTO) 56.5 % (42.2-75.2); PLATELET COUNT (AUTO) 253 K/uL (140-450); RED BLOOD CELL COUNT(AUTO) 4.32 MIL/uL (4.20-6.10); RED CELL DISTRIBUTION WIDTH 13.5 % (11.6-13.7); WHITE BLOOD COUNT (AUTO) 6.2 K/uL (4.8-10.8)
[2019-06-24 07:48] LABS: ANION GAP 9.6 (8-16); CARBON DIOXIDE 28.8 mmol/L (21-32); CREATININE 0.7 mg/dL (0.6-1.3); POTASSIUM 4.4 mmol/L (3.5-5.1)
[2019-06-24 08:00] VITALS: BP 107/61
[2019-06-24] MEDS: DOCUSATE 100 MG/10 ML UDC GT SCH ×2 (09:49→21:08)
[2019-06-24] MEDS: FERROUS SULFATE 300 MG/5 ML UDC GT SCH (09:50)
[2019-06-24] MEDS: VALPROIC ACID 250 MG/5 ML UDC GT SCH ×2 (09:50→21:07)
[2019-06-24] MEDS: BENZTROPINE 1 MG TAB GT SCH (09:51)
[2019-06-24] MEDS: QUEtiapine FUMARATE 100 MG TAB GT SCH ×3 (09:52→18:23)
[2019-06-24] MEDS: ASCORBIC ACID 500 MG TAB GT SCH (09:52)
[2019-06-24] MEDS: clonazePAM 0.5 MG TAB GT SCH ×3 (10:28→18:26)
--- NOTE | 2019-06-24 10:40 | NUR ---
HOURLY ROUNDING. ASSISTED MACHINE TANK OPERATOR WITH BED CHANGE AND REPOSITIONING. PT TOLERATED WELL. NO SIGNS OF DISTRESS NOTED. RESPIRATIONS EVEN AND UNLABORED. SAFETY MEASURES IN PLACE AND CALL LIGHT WITHIN REACH. WILL CONTINUE TO MONITOR
[2019-06-24] MEDS: POLYETHYLENE GLYCOL 17 GM/PKT GT SCH (12:00)
--- NOTE | 2019-06-24 13:09 | NUR ---
HOURLY ROUNDING. PT LAYING IN BED EASILY AROUSABLE. NO SIGNS OF DISTRESS NOTED. RESPIRATIONS EVEN AND UNLABORED. SAFETY MEASURES IN PLACE BED ALARM ACTIVE. WILL CONTINUE TO MONITOR
[2019-06-24 16:00] VITALS: BP 111/70
--- NOTE | 2019-06-24 16:17 | NUR ---
HOURLY ROUNDING. PT LAYING IN BED. EASILY AROUSABLE. NO SIGNS OF DISTRESS NOTED. SAFETY MEASURES IN PLACE
[2019-06-24] MEDS: LEVOFLOXACIN 500 MG/D5W PREMIX 100 ML IV SCH (18:22)
[2019-06-24] MEDS: MUPIROCIN CA NASAL 2% 1GM TUBE NS SCH (18:22)
[2019-06-24] MEDS: CHLORHEXADINE GLUC 2% CLOTH TP SCH (18:23)
--- NOTE | 2019-06-24 18:23 | NUR ---
HOURLY ROUNDING. ADMINISTERED PT MEDICATION. PT TOLERATED WELL. NO SIGNS OF DISTRESS NOTED. RESPIRATIONS EVEN AND UNLABORED. SAFETY MEASURES IN PLACE. WILL CONTINUE TO MONITOR
--- NOTE | 2019-06-24 19:38 | NUR ---
GAVE REPORT TO STAIR BUILDER NURSE TORRES FOR CONTINUITY OF CARE. PT IN STABLE CONDITION.
--- NOTE | 2019-06-24 19:39 | NUR ---
RECEIVED BEDSIDE REPORT FROM AM SHIFT NURSE. PATIENT IS LYING IN BED WITH EYES OPEN. VISIBLE CHEST RISE AND FALL NOTED. NO SOB OR DISTRESS NOTED ON ROOM AIR. IV ACCESS ON RIGHT AC 20 GAUGE. PATENT, INTACT AND INFUSING WELL. G-TUBE IN PLACE, PATENT, INTACT AND INFUSING WELL. THOMPSON CATHETER IN PLACE, DRAINING WELL. BED IN LOW. SAFETY MEASURES IN PLACE. INITIAL ASSESSMENT DONE. CALL LIGHT WITHIN PATIENT REACH. WILL CONTINUE TO MONITOR PATIENT.
--- NOTE | 2019-06-24 19:39 | NUR ---
RECEIVED PT FROM AM SHIFT. PT IN NO APPARENT RESPIRATORY DISTRESS AT THIS TIME; HR 60, RR 20, SPO2 97% ON ROOM AIR. BREATH SOUNDS WERE COARSE. HHN TX GIVEN ORDERED WITH NO ADVERSE REACTION. BVM AT BEDSIDE AND HOB > 30. WILL CONTINUE TO MONITOR PT.
[2019-06-24] MEDS: VANCOMYCIN 750 MG in DEXTROSE 5% 250 ML IV SCH (20:57)
[2019-06-24] MEDS: ATENOLOL 25 MG TAB GT SCH (21:08)
--- NOTE | 2019-06-24 22:05 | NUR ---
ROUNDS DONE. VISIBLE CHEST RISE AND FALL NOTED. WILL CONTINUE TO MONITOR PATIENT.
[2019-06-25 00:15] VITALS: BP 110/77
--- NOTE | 2019-06-25 00:15 | NUR ---
VITALS DONE AT THIS TIME. VISIBLE CHEST RISE AND FALL NOTED. WILL CONTINUE TO MONITOR PATIENT.
[2019-06-25] MEDS: IPRATROPIUM 0.02% 0.5 MG/2.5 ML NEBU INH SCH ×4 (01:44→19:00)
--- NOTE | 2019-06-25 02:30 | NUR ---
ROUNDS DONE. VISIBLE CHEST RISE AND FALL NOTED. WILL CONTINUE TO MONITOR PATIENT.
--- NOTE | 2019-06-25 04:36 | NUR ---
ROUNDS DONE. VISIBLE CHEST RISE AND FALL NOTED. WILL CONTINUE TO MONITOR PATIENT.
[2019-06-25] MEDS: VANCOMYCIN 750 MG in DEXTROSE 5% 250 ML IV SCH ×3 (05:08→23:53)
[2019-06-25] MEDS: LEVOTHYROXINE 0.05 MG TAB PO SCH (06:38)
--- NOTE | 2019-06-25 06:55 | NUR ---
PATIENT IN STABLE CONDITION. NO DISTRESS NOTED. CALL LIGHT WITHIN PATIENT REACH. WILL ENDORSE TO AM SHIFT NURSE FOR CONTINUITY OF CARE.
[2019-06-25 07:13] LABS: BASOPHILS % (AUTO) 0.2 % (0.0-2.0); EOSINOPHILS # (AUTO) 0.3 K/uL (0-0.4); EOSINOPHILS % (AUTO) 4.2 % (0.0-4.0); HEMOGLOBIN 13.4 g/dL (12.0-18.0); LYMPHOCYTES # (AUTO) 1.7 K/uL (2.0-11.5); LYMPHOCYTES % (AUTO) 26.9 % (20.5-51.1); MEAN CORPUSCULAR HEMOGLOBIN 29 pg (27-31); MEAN CORPUSCULAR HGB CONC 35 g/dL (33-37); MEAN CORPUSCULAR VOLUME 84.3 fL (80-94); MONOCYTES # (AUTO) 0.6 K/uL (0.8-1.0); MONOCYTES % (AUTO) 9.8 % (1.7-9.3); NEUTROPHILS # (AUTO) 3.7 K/uL (1.8-7.7); NEUTROPHILS % (AUTO) 58.9 % (42.2-75.2); PLATELET COUNT (AUTO) 249 K/uL (140-450); RED BLOOD CELL COUNT(AUTO) 4.62 MIL/uL (4.20-6.10); RED CELL DISTRIBUTION WIDTH 13.4 % (11.6-13.7); WHITE BLOOD COUNT (AUTO) 6.3 K/uL (4.8-10.8)
--- NOTE | 2019-06-25 07:30 | NUR ---
RECEIVED REPORT FROM [facility] ATTENDANT NURSE .PT IS NI BED IN STABLE CONDITION. NO DISTRESS NOTED. CALL LIGHT IN REACH.
[2019-06-25 07:45] LABS: CARBON DIOXIDE 28.6 mmol/L (21-32); CREATININE 0.8 mg/dL (0.6-1.3); POTASSIUM 4.6 mmol/L (3.5-5.1)
[2019-06-25 08:00] VITALS: BP 140/81
[2019-06-25] MEDS: FERROUS SULFATE 300 MG/5 ML UDC GT SCH (08:14)
[2019-06-25] MEDS: DOCUSATE 100 MG/10 ML UDC GT SCH ×2 (08:14→20:27)
[2019-06-25] MEDS: VALPROIC ACID 250 MG/5 ML UDC GT SCH ×2 (08:15→20:26)
[2019-06-25] MEDS: BENZTROPINE 1 MG TAB GT SCH (08:15)
[2019-06-25] MEDS: ASCORBIC ACID 500 MG TAB GT SCH (08:15)
[2019-06-25] MEDS: QUEtiapine FUMARATE 100 MG TAB GT SCH ×3 (08:15→16:46)
[2019-06-25] MEDS: clonazePAM 0.5 MG TAB GT SCH ×3 (08:18→16:47)
--- NOTE | 2019-06-25 09:30 | NUR ---
PT IS IN BED AT THIS TIME. NO DISTRESS NOTED. WRIST RESTRAINS CHECKED. RESTRAINS PATENT. SAFETY CHECKS IN PLACE. CALL LIGHT IN REACH.
--- NOTE | 2019-06-25 11:56 | NUR ---
DC PLANN[age] YRS OLD MALE PATIENT WAS ADMITTED FROM [facility] WITH A DX OF PNEUMONIA. PT HAS A HX OF MENTALLY CHALLENGE, NON-VERBAL SZ, ANEMIA, HTN AND CONSTIPATION. PT HAS G-TUBE FOR FEEDING AND MEDICATION. CHEST XRAY SHOWED LOW LUNG VOLUME WITH BIBASILAR OPACITIES, CONSULTED WITH DR MENDEZ AND DR BALDO SANABRIA. STARTED ON VANCOMYCIN IV ABX AND CONTINUE HOME MEDICATION. DC PLAN TO GO BACK TO [facility] WHEN STABLE. CM TO FOLLOW. Addendum: 06/26/19 at 1055 by Katie Treviño CM DC PLANNING: SEEN BY DR CONCEPCION ID CONTINUE LEVAQUIN AND VANCOMYCIN IV , PENDING FINAL BLOOD CULTURE RESULTS CALLED LAB STATED WILL TAKE 5 DAYS AND WILL BE READY TOMORROW THE 06/27/19 CM TO FOLLOW
--- NOTE | 2019-06-25 12:00 | NUR ---
TRIED TO PAGE DR. BLAND REGARDING THE CONSULT, THE EXCHANGE STATED THAT NUMBER IS FOR DR. MAC HWANG. TRIED TO PAGE HIS PAGER BU IS NOT GOING THRU. DR. PRIYANKA Kunz NOTIFIED, STATED HE WILL GIVE DR. BLAND A CALL.
[2019-06-25] MEDS: POLYETHYLENE GLYCOL 17 GM/PKT GT SCH (12:22)
--- NOTE | 2019-06-25 12:30 | NUR ---
PATIENT IS RESPONSIVE AND IS LAYING IN BED AT THIS TIME. NO DISTRESS NOTED. SOFT RESTRAINT ON RIGHT ARM CHECKED AND IS INTACT. WILL CONTINUE TO MONITOR PATIENT. Addendum: 06/25/19 at 1319 by Renate Quinonez RN CALL LIGHT IS WITHIN REACH.
--- NOTE | 2019-06-25 15:00 | NUR ---
PT IS IN BED. PT REPOSITIONED. RESTRAINS CHECKED. NO DISTRESS NOTED. SAFETY MEASURES IN CHECK. CALL LIGHT IN REACH.
[2019-06-25 16:00] VITALS: BP 124/71
[2019-06-25] MEDS: LEVOFLOXACIN 500 MG/D5W PREMIX 100 ML IV SCH (16:49)
[2019-06-25] MEDS: MUPIROCIN CA NASAL 2% 1GM TUBE NS SCH (16:50)
[2019-06-25] MEDS: CHLORHEXADINE GLUC 2% CLOTH TP SCH (16:50)
--- NOTE | 2019-06-25 18:39 | NUR ---
PT IS IN BED. PT REPOSITIONED. RESTRAINS CHECKED. NO DISTRESS NOTED. VITAL SIGNS WITHIN NORMAL LEVELS. SAFETY MEASURES IN CHECK. CALL LIGHT IN REACH.
--- NOTE | 2019-06-25 19:11 | NUR ---
SHIFT REPORT GIVEN TO DEVELOPER ARCHITECT NURSE. PT IS IN BED IN STABLE CONDITION. NO DISTRESS NOTED . CALL LIGHT IN REACH.
--- NOTE | 2019-06-25 19:12 | NUR ---
RECEIVED BEDSIDE REPORT FROM AM SHIFT NURSE. PATIENT IS LYING IN BED WITH EYES CLOSED. NO SOB OR DISTRESS NOTED. IV ACCESS ON RIGHT AC 20 GAUGE, PATENT, INTACT AND INFUSING WELL. G-TUBE IN PLACE, PATENT AND INTACT. THOMPSON CATHETER IN PLACE, DRAINING WELL. INITIAL ASSESSMENT DONE. BED IN LOW, SAFETY MEASURES IN PLACE. CALL LIGHT PLACED WITHIN PATIENT REACH. WILL CONTINUE TO MONITOR PATIENT.
[2019-06-25] MEDS: ATENOLOL 25 MG TAB GT SCH (20:26)
--- NOTE | 2019-06-25 22:35 | NUR ---
FOLLOWED UP WITH LAB FOR VANCO TROUGH. RESULT STILL PENDING.
--- NOTE | 2019-06-25 23:45 | NUR ---
FOLLOWED UP WITH SEYMOUR FROM LAB FOR VANCO TROUGH. RESULTS STILL PENDING.
--- NOTE | 2019-06-25 23:48 | NUR ---
SPOKE WITH VIKTORIYA FROM [facility] WITH THE VANCO TROUGH RESULT OF 14.4. PATIENT IS OKAY TO CONTINUE VANCOMYCIN AT THIS TIME.
--- NOTE | 2019-06-26 00:10 | NUR ---
VITALS TAKEN AT THIS TIME. NO DISTRESS NOTED. WILL CONTINUE TO MONITOR PATIENT.
[2019-06-26 00:15] VITALS: BP 140/68
--- NOTE | 2019-06-26 01:00 | NUR ---
FEEDING BOTTLE, WATER BAG AND TUBES CHANGED AT THIS TIME. PATIENT TOLERATING FEEDING WELL. NO DISTRESS NOTED. WILL CONTINUE TO MONITOR PATIENT.
[2019-06-26] MEDS: IPRATROPIUM 0.02% 0.5 MG/2.5 ML NEBU INH SCH ×4 (01:51→19:28)
--- NOTE | 2019-06-26 03:40 | NUR ---
ROUNDS DONE. VISIBLE CHEST RISE AND FALL NOTED. CALL LIGHT PLACED WITHIN PATIENT REACH. WILL CONTINUE TO MONITOR PATIENT.
--- NOTE | 2019-06-26 04:06 | NUR ---
SPOKE TO VIKTORIYA FROM [facility]. NEXT VANCOMYCIN SCHEDULED DOSE WILL BE MOVED TO 0800 INSTEAD OF 0500 DUE TO THE LATE RESULT OF THE VANCO TROUGH.
[2019-06-26] MEDS: LEVOTHYROXINE 0.05 MG TAB PO SCH (05:54)
--- NOTE | 2019-06-26 06:51 | NUR ---
PATIENT IN STABLE CONDITION. CALL LIGHT WITHIN PATIENT REACH. WILL ENDORSE TO AM SHIFT NURSE FOR CONTINUITY OF CARE.
[2019-06-26 07:20] LABS: BASOPHILS % (AUTO) 0.4 % (0.0-2.0); EOSINOPHILS # (AUTO) 0.5 K/uL (0-0.4); EOSINOPHILS % (AUTO) 6.1 % (0.0-4.0); HEMATOCRIT 43.5 % (36-52); HEMOGLOBIN 14.3 g/dL (12.0-18.0); MEAN CORPUSCULAR HEMOGLOBIN 29 pg (27-31); MEAN CORPUSCULAR HGB CONC 33 g/dL (33-37); MEAN CORPUSCULAR VOLUME 87.1 fL (80-94); MONOCYTES # (AUTO) 0.7 K/uL (0.8-1.0); MONOCYTES % (AUTO) 9.8 % (1.7-9.3); NEUTROPHILS # (AUTO) 4.3 K/uL (1.8-7.7); NEUTROPHILS % (AUTO) 57.7 % (42.2-75.2); PLATELET COUNT (AUTO) 256 K/uL (140-450); RED BLOOD CELL COUNT(AUTO) 4.99 MIL/uL (4.20-6.10); RED CELL DISTRIBUTION WIDTH 13.6 % (11.6-13.7); WHITE BLOOD COUNT (AUTO) 7.5 K/uL (4.8-10.8)
--- NOTE | 2019-06-26 07:25 | NUR ---
RECEIVED PT FROM MANAGER SEARCH ENGINE NURSETORRES, PT IS ASLEEP, VISIBLE CHEST RISE NOTED, SIDE RAILS ARE UP AND CALL LIGHT WITHIN REACH, ON ROOM AIR, PT HAS AN IV LINE RT AC G. 20 NS ON TKO, G- TUBE IN PLACE, ON CONTINUOUS FEEDING OF JEVITY 1.2 AT 65ML/HR WITH WATER FLUSH OF 100ML Q4H, NON- BEHAVIORAL RESTRAINT OF SOT WRIST ON THE RT ARM, WITH THOMPSON CATHETER IN PLACE AND NO SIGN OF DISTRESS NOTED, WILL MONITOR PT.
[2019-06-26 07:26] LABS: ANION GAP 11.5 (8-16); CARBON DIOXIDE 30.3 mmol/L (21-32); CREATININE 0.7 mg/dL (0.6-1.3); POTASSIUM 4.8 mmol/L (3.5-5.1)
[2019-06-26 08:00] VITALS: BP 115/71
[2019-06-26] MEDS ORDERED: VANCOMYCIN 750 MG in DEXTROSE 5% 250 ML IV SCH (08:00)
[2019-06-26] MEDS: FERROUS SULFATE 300 MG/5 ML UDC GT SCH (08:46)
[2019-06-26] MEDS: VALPROIC ACID 250 MG/5 ML UDC GT SCH ×2 (08:46→21:49)
[2019-06-26] MEDS: DOCUSATE 100 MG/10 ML UDC GT SCH ×2 (08:48→21:49)
[2019-06-26] MEDS: QUEtiapine FUMARATE 100 MG TAB GT SCH ×3 (08:49→18:07)
[2019-06-26] MEDS: BENZTROPINE 1 MG TAB GT SCH (08:49)
[2019-06-26] MEDS: ASCORBIC ACID 500 MG TAB GT SCH (08:49)
--- NOTE | 2019-06-26 08:49 | NUR ---
PT WAS GIVEN SCHEDULED AM MEDICATIONS VIA G-TUBE, BP IS 115/71, PULSE IS 65, O2 SATURATION IS 99% ON ROOM AIR, NO RESIDUAL NOTED AND WILL MONITOR PT.
[2019-06-26] MEDS: clonazePAM 0.5 MG TAB GT SCH ×3 (08:51→18:06)
[2019-06-26] MEDS: VANCOMYCIN 750 MG in DEXTROSE 5% 250 ML IV SCH ×2 (09:26→19:43)
--- NOTE | 2019-06-26 09:26 | NUR ---
PT WAS GIVEN VANCOMYCIN IVPB AT 165ML/HR, TROUGH LEVEL IS 14.4, PHARMACY PROTOCOL IN PLACE., WILL MONITOR PT.
--- NOTE | 2019-06-26 12:21 | NUR ---
PT'S IV LINE WAS NOTED TO BE INFILTRATED NOW AND WILL RE-INSERT A NEW IV LINE.
[2019-06-26] MEDS: POLYETHYLENE GLYCOL 17 GM/PKT GT SCH (12:53)
--- NOTE | 2019-06-26 13:23 | NUR ---
AFTERNOON MEDICATIONS WERE GIVEN. BP 109/67, O2 95. TOLERATED WELL. WILL CONTINUE TO MONITOR.
--- NOTE | 2019-06-26 13:35 | NUR ---
PT IS BEING GIVEN A BREATHING TREATMENT NOW.
--- NOTE | 2019-06-26 14:51 | NUR ---
06/26/19 RD FOLLOW UP COMPLETED PLEASE REFER TO NUTRITION ASSESSMENT UNDER CARE ACTIVITY FOR ESTIMATED NUTRITIONAL NEEDS. 1. CONTINUE PT ON TUBE FEEDING JEVITY 1.2 @ 65 ML/HR. - THIS PROVIDES 1560 ML TOTAL VOLUME, 1872 KCAL, 87 GM PROTEIN, 1260 ML TOTAL FREE WATER (+ 600 ML FWF). 2. CONTINUE FREE WATER FLUSH: [address] TO FOLLOW-UP 2-3 DAYS, HIGH RISK OCTAVIA SALMERON RD
[2019-06-26 16:00] VITALS: BP 132/62
[2019-06-26] MEDS: LEVOFLOXACIN 500 MG/D5W PREMIX 100 ML IV SCH (17:47)
[2019-06-26] MEDS: MUPIROCIN CA NASAL 2% 1GM TUBE NS SCH (18:08)
[2019-06-26] MEDS: CHLORHEXADINE GLUC 2% CLOTH TP SCH (18:08)
--- NOTE | 2019-06-26 19:30 | NUR ---
ENDORSED PT TO CHILDCARE WORKER NURSE FOR CONTINUITY OF CARE.
--- NOTE | 2019-06-26 19:36 | NUR ---
RECEIVED PT FROM AM SHIFT. PT IN NO APPARENT RESPIRATORY DISTRESS AT THIS TIME; HR 63, RR 18, SPO2 97% ON ROOM AIR. BREATH SOUNDS WERE COARSE. HHN TX GIVEN ORDERED WITH NO ADVERSE REACTION. BVM AT BEDSIDE AND HOB > 30. WILL CONTINUE TO MONITOR PT.
[2019-06-26 21:42] VITALS: BP 121/79
[2019-06-26] MEDS: ATENOLOL 25 MG TAB GT SCH (21:49)
--- NOTE | 2019-06-26 22:00 | NUR ---
PT. IN BED TOTAL CARE. GT FEEDING IN PLACE AND INFUSING WELL WITH JEVITY AT 65 ML/H. THOMPSON CATHETER IN PLACE AND CALL LIGHT WITH IN REACH. BED ALARM ON. PT. TOTAL CARE. MENTALLY CHALLENGED. LEFT SIDED WEAKNESS . AFEBRILE. NEEDS WILL BE ANTICIPATED AND WILL BE MET. ON IV ABT THERAPY. ISOLATION PRECAUTIONS RT MRSA NARES. NONE VERBAL.
[2019-06-27] MEDS: VANCOMYCIN 750 MG in DEXTROSE 5% 250 ML IV SCH ×3 (01:20→18:22)
--- NOTE | 2019-06-27 01:36 | NUR ---
PT. TURNED TO SIDES Q 2H. RESTRAINT RELEASED PER PROTOCOL FOR 15 MINUTES. NEEDS ANTICIPATED AND MET. NONE VERBAL. HOB UP 30 DEGREES FOR ASPIRATION PRECAUTIONS RT WITH GT FEEDING. THOMPSON CATHETER IN PLACE AND DRAINING WITH YELLOW URINE.
[2019-06-27] MEDS: IPRATROPIUM 0.02% 0.5 MG/2.5 ML NEBU INH SCH ×4 (02:14→19:43)
--- NOTE | 2019-06-27 03:30 | NUR ---
NO RESTLESSNESS. HOB UP 30 DEGREES FOR ASPIRATION PRECAUTIONS. NO NAUSEA AND VOMITING THIS SHIFT NOTED. TOTAL CARE. MENTALLY CHALLENGED . BEDBOUND . TELEMETRY MONITORING. THOMPSON CATHETER DRAINING WELL WITH URINE.
[2019-06-27] MEDS: LEVOTHYROXINE 0.05 MG TAB PO SCH (05:35)
--- NOTE | 2019-06-27 05:35 | NUR ---
NEW IVF LINE INSERTED TO RIGHT THUMB#24 RT PT. ACCIDENTALLY PULLED OUT OLD IVF SITE. WITH GOOD BLOOD RETURN. NEEDS ANTICIPATED AND MET. TOTAL CARE. GT FEEDING NO RESIDUALS AT THIS TIME.
--- NOTE | 2019-06-27 07:33 | NUR ---
SHIFT REPORT RECEIVED FROM TECHNOLOGY TEACHER NURSE. PT IS IN ED AT THIS TIME SLEEPING. NO DISTRESS NOTED. WRIST RESTRAINS IN PLACE AND PATENT. SAFETY MEASURES IN PLACE. CALL LIGHT IN REACH.
[2019-06-27 08:00] VITALS: BP 104/70
--- NOTE | 2019-06-27 09:00 | NUR ---
VANCOMYCIN WAS GIVEN TODAY. VERIFIED WITH PHARMACY JUAN MANUEL. PER PHARMACIST GIVEN VANCOMYCIN. WILL CONTINUE TO MONITOR.
[2019-06-27] MEDS ORDERED: QUEtiapine FUMARATE 100 MG TAB ONE (09:49)
[2019-06-27] MEDS: VALPROIC ACID 250 MG/5 ML UDC GT SCH ×2 (10:07→21:28)
[2019-06-27] MEDS: DOCUSATE 100 MG/10 ML UDC GT SCH ×2 (10:07→21:28)
[2019-06-27] MEDS: FERROUS SULFATE 300 MG/5 ML UDC GT SCH (10:07)
[2019-06-27] MEDS: ASCORBIC ACID 500 MG TAB GT SCH (10:07)
[2019-06-27] MEDS: BENZTROPINE 1 MG TAB GT SCH (10:08)
[2019-06-27] MEDS: QUEtiapine FUMARATE 100 MG TAB GT SCH ×3 (10:08→16:57)
[2019-06-27] MEDS: clonazePAM 0.5 MG TAB GT SCH ×3 (10:09→16:58)
--- NOTE | 2019-06-27 10:30 | NUR ---
PT IS IN BED AT THIS TIME. PT IS SLEEPING. NO SIGNS OF AGITATION. NO DISTRESS NOTED. CALL LIGHT IN REACH.
--- NOTE | 2019-06-27 12:30 | NUR ---
PT IS IN BED AT THIS TIME. PT IS SLEEPING. NO SIGNS OF AGITATION. NO DISTRESS NOTED. SAFETY CHECK IN PLACE. CALL LIGHT IN REACH.
--- NOTE | 2019-06-27 12:57 | NUR ---
PT COMBATIVE TRYING TO HIT RT KEI NOT LEAVE PULSE OX ON RN FLORENCE AT BEDSIDE
[2019-06-27] MEDS: POLYETHYLENE GLYCOL 17 GM/PKT GT SCH (12:59)
--- NOTE | 2019-06-27 13:30 | NUR ---
IV WAS LEAKING FROM PATIENTS HAND ON RIGHT THUMB AREA. CALLED ER NURSE TO INSERT A NEW IV. ER NURSE WAS UNABLE. NOTIFIED CHARGE NURSE.
--- NOTE | 2019-06-27 15:00 | NUR ---
PT IS IN BED SLEEPING. PT RESPONDS TO VERBAL STIMULI. NO DISTRESS NOTED. CALL LIGHT IN REACH.
[2019-06-27] MEDS: MUPIROCIN CA NASAL 2% 1GM TUBE NS SCH (15:06)
[2019-06-27] MEDS: CHLORHEXADINE GLUC 2% CLOTH TP SCH (15:06)
[2019-06-27 16:00] VITALS: BP 113/71
[2019-06-27] MEDS: LEVOFLOXACIN 500 MG/D5W PREMIX 100 ML IV SCH (16:57)
--- NOTE | 2019-06-27 18:02 | NUR ---
PT IS IN BED SLEEPING. PT RESPONDS TO VERBAL STIMULI. NO DISTRESS NOTED. WILL CONTINUE TO MONITOR. CALL LIGHT IN REACH.
--- NOTE | 2019-06-27 19:33 | NUR ---
SHIFT REPORT GIVEN TO REAMING MACHINE OPERATOR FOR PLASTIC NURSE. PT IS IN BED IN STABLE CONDITION. IV VANCOMYCIN GIVEN PER PHARMACIST HESHAM. CALL LIGHT IN REACH.
--- NOTE | 2019-06-27 19:34 | NUR ---
RECD. RESTING IN BED, AWAKE, ALERT, CONFUSED, MUMBLES. RESPIRATION EVEN AND UNLABORED. IV OF NS AT 10 ML/HR INFUSING, RIGHT FOOT G24. WITH RIGHT SOFT WRIST RESTRAINT, PATIENT RIGHT ARM IS STRONG, TRYING TO PULL OUT G TUBE. JEVITY 1.2 INFUSING AT 65 ML/HR. F/C PATENT DRAINING CLEAR BRUNO COLORED URINE. SAFETY MEASURES ENFORCED. SIDE RAILS WITH PADS FOR SEIZURE PRECAUTION. PLAN OF CARE DISCUSSED. UNABLE TO COMPREHEND. NEEDS REINFORCEMENT. NO APPEARANCE OF PAIN NOTED, FLACC -0.
--- NOTE | 2019-06-27 19:50 | NUR ---
RECEIVED PT FROM AM SHIFT. PT IN NO APPARENT RESPIRATORY DISTRESS AT THIS TIME; HR 68, RR 18, SPO2 100% ON ROOM AIR AND A CLEAR DIMINISHED SOUNDS ON THE UPPER LOBES; DIMINISHED BREATH SOUNDS ON LOWER LOBES. HHN TX GIVEN ORDERED WITH NO ADVERSE REACTION. PT INFORMED TO CALL RN OR GUEST RELATIONS ASSOCIATE FOR HHN PRN TX WHEN EXPERIENCING SOB. HOB > 30. WILL CONTINUE TO MONITOR PT.
--- NOTE | 2019-06-27 21:28 | NUR ---
AWAKE IN BED, NO AGITATION NOTED. DUE MEDICATIONS FOR THE NIGHT GIVEN VIA GT.
[2019-06-27] MEDS: ATENOLOL 25 MG TAB GT SCH (21:29)
--- NOTE | 2019-06-27 22:30 | NUR ---
STILL AWAKE IN BED, MUMBLING WORDS. NO DISTRESS NOTED.
[2019-06-28] VITALS: BP 124/65
--- NOTE | 2019-06-28 | NUR ---
STILL AWAKE IN BED, NO DISTRESS NOTED.
[2019-06-28] MEDS: IPRATROPIUM 0.02% 0.5 MG/2.5 ML NEBU INH SCH ×3 (00:28→13:19)
[2019-06-28] MEDS: VANCOMYCIN 750 MG in DEXTROSE 5% 250 ML IV SCH ×2 (01:39→09:00)
--- NOTE | 2019-06-28 02:00 | NUR ---
TRIES TO HIT WHEN RIGHT ARM TOUCHED. REORIENTED TO HOSPITAL SETTING.
--- NOTE | 2019-06-28 04:00 | NUR ---
SLEEPING COMFORTABLY IN BED.
[2019-06-28] MEDS: LEVOTHYROXINE 0.05 MG TAB PO SCH (06:47)
[2019-06-28 07:00] LABS: BASOPHILS # (AUTO) 0.1 K/uL (0.00-0.22); BASOPHILS % (AUTO) 1.2 % (0.0-2.0); EOSINOPHILS # (AUTO) 0.5 K/uL (0-0.4); EOSINOPHILS % (AUTO) 6.9 % (0.0-4.0); HEMATOCRIT 39.9 % (36-52); LYMPHOCYTES % (AUTO) 27.6 % (20.5-51.1); MEAN CORPUSCULAR HEMOGLOBIN 29 pg (27-31); MEAN CORPUSCULAR HGB CONC 35 g/dL (33-37); MEAN CORPUSCULAR VOLUME 83.6 fL (80-94); MONOCYTES # (AUTO) 0.7 K/uL (0.8-1.0); MONOCYTES % (AUTO) 9.7 % (1.7-9.3); NEUTROPHILS # (AUTO) 3.9 K/uL (1.8-7.7); NEUTROPHILS % (AUTO) 54.6 % (42.2-75.2); PLATELET COUNT (AUTO) 246 K/uL (140-450); RED BLOOD CELL COUNT(AUTO) 4.77 MIL/uL (4.20-6.10); RED CELL DISTRIBUTION WIDTH 13.3 % (11.6-13.7); WHITE BLOOD COUNT (AUTO) 7.1 K/uL (4.8-10.8)
[2019-06-28 07:15] LABS: ANION GAP 10.8 (8-16); CARBON DIOXIDE 29.8 mmol/L (21-32); CREATININE 0.7 mg/dL (0.6-1.3); POTASSIUM 4.6 mmol/L (3.5-5.1)
--- NOTE | 2019-06-28 07:29 | NUR ---
CONDITION REMAIN STABLE. ENDORSED TO AM SHIFT NURSE FOR CONTINUITY OF CARE.
--- NOTE | 2019-06-28 07:30 | NUR ---
RECEIVED REPORT FROM NIGHT NURSE. PT IN STABLE CONDITION, NO DISTRESS NOTED, FLACC 0. IV IN PLACE IN RIGHT FOOT 24G, PATENT AND ASYMPTOMATIC INFUSING PER ORDER. RESPIRATIONS EVEN AND UNLABORED ON O2 2L VIA NC. SKIN INTACT. G TUBE IN PLACE WITH TUBE FEEDING JEVITY 1.2 AT 65ML. SAFETY MEASURES IN PLACE, CALL LIGHT WITHIN REACH, BED IN LOW POSITION. WILL CONTINUE TO MONITOR.
[2019-06-28] MEDS: FERROUS SULFATE 300 MG/5 ML UDC GT SCH (08:31)
[2019-06-28] MEDS: ASCORBIC ACID 500 MG TAB GT SCH (08:32)
[2019-06-28] MEDS: BENZTROPINE 1 MG TAB GT SCH (08:32)
[2019-06-28] MEDS: VALPROIC ACID 250 MG/5 ML UDC GT SCH (08:32)
[2019-06-28] MEDS: DOCUSATE 100 MG/10 ML UDC GT SCH (08:32)
[2019-06-28] MEDS: clonazePAM 0.5 MG TAB GT SCH ×2 (08:44→13:21)
--- NOTE | 2019-06-28 08:54 | NUR ---
MEDICATIONS ADMINISTERED PER ORDER. PT TOLERATED WELL, NO DISTRESS NOTED. SAFETY MEASURES IN PLACE. CALL LIGHT WITHIN REACH.
[2019-06-28] MEDS: QUEtiapine FUMARATE 100 MG TAB GT SCH ×2 (09:00→13:12)
--- NOTE | 2019-06-28 10:31 | NUR ---
ASSISTED CLAM TREADER IN CLEANING AND CHANGING PT. NO DISTRESS NOTED, FLACC 0. SAFETY MEASURES IN PLACE. CALL LIGHT WITHIN REACH. WILL CONTINUE TO MONITOR.
[2019-06-28] MEDS: POLYETHYLENE GLYCOL 17 GM/PKT GT SCH (12:00)
--- NOTE | 2019-06-28 12:42 | NUR ---
MEDICATIONS ADMINISTERED PER ORDER. PT TOLERATED WELL, NO DISTRESS NOTED, FLACC 0. SAFETY MEASURES IN PLACE. CALL LIGHT WITHIN REACH, WILL CONTINUE TO MONITOR.
--- NOTE | 2019-06-28 13:38 | NUR ---
CONTACTED [facility], SPOKE WITH RUBINA REGARDING PT'S D/C ORDER. PER RUBINA, ETA FOR CUSTOMER PROGRAM MANAGER WILL BE AT 4 PM TODAY. CLARI ASSIGNED MADE AWARE.
--- NOTE | 2019-06-28 15:13 | NUR ---
PT IN BED, ASLEEP, NO DISTRESS NOTED, FLACC 0, RESPIRATIONS EVEN AND UNLABORED ON ROOM AIR. SAFETY MEASURES IN PLACE. CALL LIGHT WITHIN REACH.L WILL CONTINUE TO MONITOR.
[2019-06-28 15:19] VITALS: BP 116/70
--- NOTE | 2019-06-28 17:40 | NUR ---
PT DISCHARGED AT THIS TIME. PT IN STABLE CONDITION, NO DISTRESS NOTED, RESPIRATIONS EVEN AND UNLABORED ON ROOM AIR. CALLED ALEX ALVARADO AT [facility] 3 TIMES TO GIVE REPORT AND SHE DID NOT ANSWER. LEFT MESSAGE WITH CALLBACK NUMBER. DISCHARGE AND FOLLOWUP TEACHING GIVEN. PT UNABLE TO RESPOND AND UNABLE TO SIGN. FLU AND PNA VACCINES UP TO DATE. IV SITE REMOVED WITH MINIMAL BLOOD LOSS AND LUMEN INTACT. THOMPSON REMOVED. ID BANDS REMOVED. BELONGINGS VERIFIED AND RETURNED TO PT. PT LEFT IN [facility], GOING TO [facility].
== END 2019-06-28 17:48 | DRG 871 ==
LOC: MED 10:36 → MTU 13:54
PROVIDERS: ADMIT Preventive Medicine Preventive Medicine/Occupational Environmental Medicine; ATTEND Preventive Medicine Preventive Medicine/Occupational Environmental Medicine
DX: A41.9 Sepsis, unspecified organism (principal); J18.9 Pneumonia, unspecified organism; J98.11 Atelectasis; I69.354 Hemiplegia and hemiparesis following cerebral infarction affecting left non-dominant side; Z22.322 Carrier or suspected carrier of Methicillin resistant Staphylococcus aureus; G40.909 Epilepsy, unspecified, not intractable, without status epilepticus; E03.9 Hypothyroidism, unspecified; K59.00 Constipation, unspecified; Z93.1 Gastrostomy status; R13.10 Dysphagia, unspecified; I10 Essential (primary) hypertension; F79 Unspecified intellectual disabilities; D64.9 Anemia, unspecified; R53.81 Other malaise; R73.9 Hyperglycemia, unspecified
CPT/HCPCS: 36415; 71045; 80048; 80053; 80202; 81001; 83605; 83880; 84484; 85025; 85651; 86140; 87040; 87081; 87086; 94640; 96365; 96367; 99291; J1956; J2543; J3370; J3490; J7030; J7060; J7613; J7644; Q0092

== ENCOUNTER 2019-07-24 08:23 | Inpatient (IN) | payer OTHER, MEDICAID, SELFPAY ==
--- NOTE | 2019-07-20 20:30 | NUR ---
START TPN AT 50 CC/HR ORDER Addendum: 07/29/19 at 0112 by Jasmin Vasquez RN ERROR ENTER
[2019-07-24] VITALS (52 sets, daily range): BP systolic 81–161; BP diastolic 48–106
[~2019-07-24] VITALS: Ht 175.3 cm; Wt 94.3 kg
--- NOTE | 2019-07-24 08:23 | NUR ---
Patient BIBA ALS, transferred to bed 1. RN evaluating patient at bedside.
--- NOTE | 2019-07-24 08:40 | NUR ---
Dr. Pickett is evaluating the patient at bedside.
--- NOTE | 2019-07-24 09:15 | NUR ---
UNABLE TO OBTAIN ABG DUE TO PT VERY COMBATIVE
--- NOTE | 2019-07-24 09:16 | NUR ---
G-TUDE MALFUNTION AFTER GIVING MEDS/FOOD THIS AM S/P SOB HX-SZ, HTN, HYPOTHYROIDISM,AMEMIA, PSYCHOSIS, MR, BLIND
[2019-07-24] MEDS ORDERED: LORazepam 2 MG/ML VIAL IVP ONE (09:35)
[2019-07-24] MEDS ORDERED: LORazepam 2 MG/ML VIAL ONE (09:36)
[2019-07-24] MEDS ORDERED: LEVOFLOXACIN 500 MG/D5W PREMIX 100 ML IV ONE (09:50)
[2019-07-24 09:52] LABS: BASOPHILS # (AUTO) 0.1 K/uL (0.00-0.22); BASOPHILS % (AUTO) 0.7 % (0.0-2.0); EOSINOPHILS # (AUTO) 0.1 K/uL (0-0.4); EOSINOPHILS % (AUTO) 0.8 % (0.0-4.0); HEMATOCRIT 47.1 % (36-52); HEMOGLOBIN 15.5 g/dL (12.0-18.0); LYMPHOCYTES # (AUTO) 2.2 K/uL (2.0-11.5); LYMPHOCYTES % (AUTO) 20.7 % (20.5-51.1); MEAN CORPUSCULAR HEMOGLOBIN 29 pg (27-31); MEAN CORPUSCULAR HGB CONC 33 g/dL (33-37); MEAN CORPUSCULAR VOLUME 88.8 fL (80-94); MONOCYTES # (AUTO) 0.7 K/uL (0.8-1.0); NEUTROPHILS # (AUTO) 7.7 K/uL (1.8-7.7); NEUTROPHILS % (AUTO) 71.8 % (42.2-75.2); PLATELET COUNT (AUTO) 249 K/uL (140-450); RED BLOOD CELL COUNT(AUTO) 5.31 MIL/uL (4.20-6.10); WHITE BLOOD COUNT (AUTO) 10.8 K/uL (4.8-10.8)
[2019-07-24] MEDS ORDERED: NACL 0.9% 1,000 ML IV ONE (09:55)
[2019-07-24 09:56] LABS: RSV NEGATIVE (NEGATIVE)
[2019-07-24] MEDS ORDERED: fentaNYL 0.05 MG/ML VIAL IVP ONE (10:00)
[2019-07-24] MEDS ORDERED: ONDANSETRON 4 MG/2 ML VIAL IVP ONE (10:00)
--- NOTE | 2019-07-24 10:00 | NUR ---
CALLED TO ER ONE TO INTUBATED PT DR. QUIROGA AT BEDSIDE, PT WAS GIVEN SEDATION THEN INTUBATE WITH 7.5 ETT AT 24CM H20 VENT SETTINGS AC 16 VT 500 PEEP 5 FIO2 100% ALARMS ON AND AUDIBLE AND AMBU BAG AT SIDE OF VENT AND VENT IS PLUGGED INTO RED OUTLET B\S ARE RHONCHI BILATERALLY, SXN PT NO RETURN OF SECRETIONS AT THIS TIME
[2019-07-24 10:05] LABS: PROTHROMBIN TIME 10.1 secs (10.8-13.4)
[2019-07-24 10:08] LABS: ALBUMIN 3.6 g/dL (3.4-5.0); ANION GAP 12.9 (8-16); CARBON DIOXIDE 30.9 mmol/L (21-32); CREATININE 0.9 mg/dL (0.6-1.3); POTASSIUM 3.8 mmol/L (3.5-5.1); TOTAL BILIRUBIN 0.3 mg/dL (0.0-1.0)
[2019-07-24] MEDS ORDERED: INTUBATION KIT MC ONE (10:21)
[2019-07-24 10:27] LABS: APPEARANCE,URINE CLEAR (CLEAR); BILIRUBIN,URINE NEGATIVE (NEGATIVE); BLOOD, URINE NEGATIVE (NEGATIVE); COLOR,URINE YELLOW (YELLOW); LEUKOCYTE ESTERASE ,URINE NEGATIVE (NEGATIVE); NITRITE, URINE NEGATIVE (NEGATIVE); PH,URINE 6.5 (5.0-9.0); UGLUCOSE NEGATIVE (NEGATIVE)
--- NOTE | 2019-07-24 10:32 | NUR ---
INTUBATED Addendum: 07/24/19 at 1107 by [email or web address] LEIGH 100 MG IV AT 1030
[2019-07-24] MEDS ORDERED: NACL 0.9% 2,000 ML IV ONE (11:05)
--- NOTE | 2019-07-24 11:05 | NUR ---
Dr. Jon is evaluating the patient at bedside.
[2019-07-24] MEDS ORDERED: DEXT 5% / NACL 0.45% 1,000 ML IV SCH (11:06)
[2019-07-24] MEDS ORDERED: HYDROcodone/APAP 5/325 MG 1 TAB TAB GT PRN (11:10)
[2019-07-24] MEDS ORDERED: ACETAMINOPHEN 325 MG TAB GT PRN (11:10)
[2019-07-24] MEDS ORDERED: BENZONATATE 100 MG CAPLF PO PRN (11:10)
[2019-07-24] MEDS ORDERED: ONDANSETRON 4 MG/2 ML VIAL IVP PRN (11:10)
[2019-07-24] MEDS ORDERED: ACETAMINOPHEN 325 MG SUPP RC ONE (11:14)
[2019-07-24] MEDS: ACETAMINOPHEN 650 MG/20.3 ML UDC GT PRN (11:18)
--- NOTE | 2019-07-24 11:21 | NUR ---
Dr. Hernandez is evaluating the patient at bedside.
[2019-07-24] MEDS ORDERED: VANCOMYCIN PER PHARMACY MC PRN ×2 (11:30→23:40)
--- NOTE | 2019-07-24 11:42 | NUR ---
Patient will be admitted to care of DR MATHEW. Admited to ICU. Will go to room 1. Belongings list completed. Report to ICU1 RN.
--- NOTE | 2019-07-24 11:45 | NUR ---
RECEIVED REPORT FROM ER NURSE DAMIR HORTON, CHIEF COMPLAIN G TUBE MALFUNCTION, DX RESPIRATORY FAILURE PNEUMONIA, SEVERE SEPSIS, PT ETT TO VENT, R EJ 18 GAUGE, R AC 20 GAUGE, BOLUS 0.9 NS 2L, G TUBE IN PLACE, DRIED BLOOD NOTICED AROUND SITE, ABDOMEN SOFT ROUND, SKIN INTACT, PULSES PALPABLE BILATERAL, HOB 30 DEGREES PER PROTOCOL, IN LOWEST POSITION WILL CONTINUE TO MONITOR
[2019-07-24 11:56] LABS: CREATINE KINASE MB 1.2 ng/mL (0-3.6)
--- NOTE | 2019-07-24 12:00 | NUR ---
Patient's Plan of Care was discussed and reviewed with VANNESA HORTON.
[2019-07-24] MEDS: NACL 0.9% 1,000 ML IV SCH ×2 (12:18→21:46)
[2019-07-24] MEDS ORDERED: CRUSHER, PILL MC ONE (12:32)
[2019-07-24] MEDS: QUEtiapine FUMARATE 100 MG TAB GT SCH ×2 (12:38→16:01)
[2019-07-24] MEDS: clonazePAM 0.5 MG TAB GT SCH ×2 (12:39→16:23)
[2019-07-24] MEDS: POLYETHYLENE GLYCOL 17 GM/PKT GT SCH (12:40)
[2019-07-24] MEDS: PROPOFOL 1000 MG/100 ML PREMIX 100 ML IV PRN (12:48)
[2019-07-24] MEDS: PIPERACILLIN/TAZOBACTAM 3.375 GM in DEXTROSE 5% 50 ML IV SCH ×2 (13:01→20:12)
[2019-07-24] MEDS: VANCOMYCIN 1,000 MG in DEXTROSE 5% 250 ML IV SCH ×2 (14:27→22:01)
--- NOTE | 2019-07-24 14:29 | NUR ---
07/24/19 INITIAL ASSESSMENT COMPLETED PLEASE REFER TO NUTRITION ASSESSMENT UNDER CARE ACTIVITY FOR ESTIMATED NUTRITIONAL NEEDS. 1. CONTINUE NPO MEDICALLY NECESSARY 2. IF/WHEN PATIENT IS MEDICALLY CLEARED, CONSIDER VITAL 1.2 @ 70 ML/HR X 24 HR. START AT 25 ML/HR AND ADVANCE BY 25 ML/HR Q4H -THIS WILL PROVIDE 2016 KCAL AND 126 GM OF PROTEIN WHICH MEETS 100% OF ESTIMATED NEEDS 3. RECOMMEND FREE WATER FLUSH [address] TO FOLLOW-UP 2-3 DAYS, HIGH RISK OCTAVIA SALMERON RD
--- NOTE | 2019-07-24 15:45 | NUR ---
PT BITING ON TUBE, ATTEMPTS TO PULL AT TUBE, INCREASED PROPOFOL 5MCG/KH/MIN TO 10MCG/KG/MIN PER PROTOCOL WILL REASSESS PT Addendum: 07/24/19 at 1652 by Rene Galvez RN ALTERNATIVE RELAXATION TECHNIQUES NOT EFFECTIVE
--- NOTE | 2019-07-24 16:00 | NUR ---
PT RASS DECREASE -2 PROVIDED ORAL CARE AND REPOSITIONED, WILL CONTINUE TO MONITOR PT
--- NOTE | 2019-07-24 16:12 | NUR ---
DC PLANN[age] YRS OLD WAS ADMITTED FROM [facility] WITH A DX OF RESPIRATORY FAILURE, PNEUMONIA. PT HAS A HX OF SEIZURE, HTN, CVA , NON-VERBAL, G-TUBE. CXRAY INCREASED PATCHY AIRSPACE EDEMA VERSUS INFILTRATE, SEEN BY PULMO DR ARMENDARIZ CONTINUE MECHANICAL VENTILATION , FOLLOW UP COVID 19 , BREATHING TREATMENT AND VANCOMYCIN IV , REPEAT CHEST XRAY. DC PLAN PER PT RESPONDING TO TREATMENT. CM TO FOLLOW Addendum: 07/25/19 at 1058 by Lorena Estes STILL IN ICU, ORALLY INTUBATED FIO2 60%. G TUBE AND FC IN PLACE. CURRENT LABS INCLUDE WBC 7.4, H/H 15.8/47.4, NA/K 135/4.8, BUN/CREA 13/1.0, C REACTIVE PROTEIN 24.6 AND TROP 1.017. NEGATIVE FOR INF A AND B. PCR TEST PENDING. ON LEVOPHED DRIP. STILL ON VANCO AND ZOSYN. SEDATED WITH PROPOFOL. CARDIO AND PULMO CONSULTS IN PLACE. DC PLAN PENDING ON PATIENT'S RESPONSE TO TREATMENT. Addendum: 07/26/19 at 1333 by Katie Treviño DC PLANNING: SEEN BY PULMO DR ARMENDARIZ, CONTINUE MECHANICAL VENTILATION ,VASOPRESSOR IV ABX ,NEBULIZERS , TUBE FEEDING AND IVF. NEGATIVE FOR COVID19 REPEAT CT ABD/PELVIS , GI AND ID FOLLOW UP. DC PLAN DISCUSSED WITH DR PRIYANKA COOK, LTAC OR SUB ACUTE. MEDICAL COLLECTOR ASHANTI CONTACTED [facility] NO FAMILY MEMBER , [facility] IS THE DECISION MAKER NAME MOOKIE ZIMMERMAN IS THE FISHER GILL NET. WILL CONTACT MOOKIE. CM TO FOLLOW Addendum: 07/26/19 at 1519 by Katie Treviño CM DC PLANNING: RECEIVED A CALL FROM MOOKIE CASTELLANOS AT [facility] , UPDATED HER WITH PATIENT'S CONDITION AND INFORMED HER WITH A POSSIBLE LTAC OR SUBACUTE. PER MOOKIE JUST TO CALL HER WITH ANY UPDATE. CM TO FOLLOW Addendum: 07/27/19 at 1210 by Lorena Estes CM CONTACTED DR. MATHEW TO DISCUSS DC PLANNING. HE STATED TO DO LTAC EVAL, ORDER PLACED AND CARRIED OUT. MITCHELL BUNN MADE AWARE. WILL COME TO EVALUATE PATIENT. CLINICALS FAXED TO [facility]. CONTACTED MOOKIE [employer] AT [facility] AT THE NUMBER PROVIDED ABOVE. SHE STATED IT'S A WRONG NUMBER AND THE ONE ANSWERED ME IS MARVA FROM [facility]. CONTACTED JOSE MILLARD OF [facility] AT [phone], NO ANSWER. LEFT MESSAGE. CM WILL FOLLOW UP. Addendum: 07/27/19 at 121 by Lorena Estes CM CONTACTED [facility] AT [phone] AND REQUESTED TO BE TRANSFERRED TO MOOKIE ZIMMERMAN [phone], NO ANSWER. LEFT MESSAGE. Addendum: 07/27/19 at 5137 by Lorena Estes CM PER LIZ, HE IS REQUESTING A BED AT [facility] PENDING RESULTS OF COVID. CHARGE NURSE ELIAS MADE AWARE. Addendum: 07/29/19 at 0831 by Lorena Estes CM PER PRIMARY CLIFFORD HOLT, NO BED AT [facility] YET AND FOR PLACEMENT OF J TUBE WITH DR. TAQUERIA DUEÑAS. MADE FOLLOW UP WITH MITCHELL DICKEY, AWAITING FOR RESPONSE. Addendum: 07/29/19 at 0945 by Lorena Estes CM CORRECTION ON THE PREVIOUS DOCUMENTATION: G TUBE INSTEAD OF J TUBE. STILL IN ICU, ORALLY INTUBATED TO VENT-FIO2 30%. CURRENT LABS INCLUDE WBC 16.7, H/H 11.5/35.6, NA/K 130/3.0, BUN/CREA 8/0.8, MAG 2.8 AND ALB 1.4. COVID NOT DETECTED. BLOOD C/S SHOWED STAPHYLOCOCCUS EPIDERMIS. PER ID, PNA IS IMPROVING AND TO CONTINUE CURRENT THERAPY. PER PULMO, TO CONTINUE MECHANICAL VENTILATION AND TO ADD VASOPRESSOR, TO CONTINUE LEVOPHED WEANING AND CONTINUE SEIZURE MEDICATION. G TUBE TO GRAVITY PER SURGICAL CONSULT. DC PLAN PENDING ON PATIENT RESPONSE TO TREATMENT. Addendum: 07/30/19 at 1116 by Lorena Estes PER PRIMARY RN JESSICA, PATIENT IS NOT STABLE FOR TRANSFER YET. WITH ORDER FOR URGENT PARACENTESIS TODAY. MITCHELL BUNN MADE AWARE. HE STATED TO KEEP UPDATING HIM, SO HE CAN REQUEST FOR THE BED. Addendum: 07/31/19 at 1129 by Katie Treviño CM DC PLANNING: CALLED MOOKIE FISHER GILL NET AT [facility] [phone] UPDATED HER PATIENT CLINICAL CONDITIONS AND THE PLAN FOR SURGERY. PER MOOKIE SHE CAN NOT GIVE CONSENT FOR SURGERY BUT THE DOCTORS CAN DECIDE IF IT IS EMERGENCY AND NECESSARY FOR THE PATIENT. I EXPLAINED HER SINCE NO FAMILY MEMBER AVAILABLE AND SHE IS THE FISHER [employer] FOR THE PATIENT TO UPDATE HER . CM TO FOLLOW . NOTIFIED JESSICA HORTON THAT NO NEED TO CALL MOOKIE FOR CONSENT. CM TO FOLLOW Addendum: 08/01/19 at 1111 by Lorena Estes CM STILL IN ICU. ORALLY INTUBATED TO VENT - FIO2 30%. ON LASIX, METRONIDAZOLE, AMIODARONE AND TPN. ON VERSED, FENTANYL, VASOPRESSIN AND LEVOPHED DRIPS. S/P DECOMPRESSIVE LAPAROTOMY, DRAINAGE OF RETROPERITONEAL ABSCESS REPLACEMENT OF G TUBE, POST OP DAY #1. PER BED HUDDLE TODAY, SURGERY PLAN FOR CLOSURE TUESDAY OR TUESDAY. WILL FOLLOW UP. Addendum: 08/01/19 at 1400 by Lorena Estes RECEIVED AN ORDER FOR HIGHER LEVEL OF CARE TRANSFER. CONTACTED DR. MATHEW TO CLARIFY WHAT LEVEL OF SERVICE THE PATIENT NEED. HE STATED TO HOLD OFF ON THE HIGHER LEVEL TRANSFER FOR NOW AND WILL SEE HOW THE PATIENT RESPONDS TO THE SURGERY ON TUESDAY. I INFORMED HIM THAT LTAC IS STILL PENDING DUE TO PATIENT'S CONDITION. HE STATED PATIENT GOING [place] AND MIGHT BE NEEDING A HIGHER LEVEL OF CARE IF WILL NOT RESPOND WELL TO THE SURGERY ON TUESDAY. CM WILL FOLLOW UP. PRIMARY RN YANET MADE AWARE. Addendum: 08/03/19 at 1447 by Lorena Estes 1320: SPOKE TO CHARGE NURSE AND PRIMARY RN JOAQUINA REGARDING DR. MATHEW'S PLAN FOR THE PATIENT. PRIMARY CLIFFORD KUNZ STATED NOTHING WAS MENTIONED WHEN HE MADE HIS ROUNDS. 1443: CONTACTED DR. MATHEW IF WHAT IS HIS PLAN FOR THE PATIENT SINCE PATIENT IS UNSTABLE AND SURGERY WAS NOT ABLE TO CLOSE THE WOUND TODAY. HE STATED TO TRANSFER PATIENT TO HIGHER LEVEL OF CARE FOR SURGICAL INTERVENTION AND MANAGEMENT. Addendum: 08/03/19 at 1522 by Lorena Estes CM REFERRAL SENT TO [facility], [facility] AND [facility]. CONTACTED [facility] TRANSFER [place] AT [phone], ABLE TO SPEAK TO SKYLAR. SHE STATED THEY DO NOT HAVE AN ICU BED AVAILABLE AT THIS TIME HOWEVER SHE CAN GET THE INFO OF THE PATIENT (THEY CALL FOR UPDATE EVERY 4 HOURS). SHE ALSO STATED TO GO AHEAD AND FAX OVER REFERRAL TO [phone]. I ALSO PROVIDED HER WITH THE UNIT AND ICT PROGRAMMER'S PHONE NUMBER FOR AFTER HOURS. SHRUTHI WILL FOLLOW UP. CONTACTED [facility] TRANSFER CENTER AT [phone], ABLE TO SPEAK TO YADI REGARDING REFERRAL. SHE CONFIRMED THAT [facility] RECEIVED THE REFERRAL AND WILL REVIEW. SHE ALSO STATED THAT SHE WILL CONTACT THEIR SURGEON TO PRESENT THE CASE. WILL CALL ME BACK FOR UPDATES. Addendum: 08/03/19 at 1616 by Lorena Estes CM PER YADI OF [facility], SHE REACHED OUT TO THE SURGEON (DR. AGEE) NO RESPONSE YET. WILL CALL BACK ONCE SHE HEARS ANYTHING FROM THE SURGEON. Addendum: 08/04/19 at 0939 by Katie Treviño CM DC PLANNING: CALLED [facility] SPOKE WITH ICT PROGRAMMER FELISHA COLLINS IN ORDER TO ACCEPT PATIENT NEEDS THE SECOND RESULT OF COVID-19 TEST AND SHE RECOMMENDED SINCE DR PARRA (SURGEON) HAS PRIVILEGE AT [facility] IT'S BETTER TO DO IT AT [facility] AND SHE WILL CONTACT HIM. WILL NOTIFY DR PRIYANKA Silva CM TO FOLLOW Addendum: 08/04/19 at 1200 by Katie Treviño CM DC PLANNING CALLED [facility] SPOKE WITH FELISHA DEL REAL THEY CANCELLED THE CASE BECAUSE THEY DON'T ACCEPT ANY PATIENT AT THIS TIME. CALLED [facility] [phone] SPOKE WITH ISAÍAS, PER ISAÍAS THEY ARE ON LEVEL 3 AND NOT ACCEPTING ANY PATIENT. CALLED [facility] SPOKE WITH KARINA , THEY HAVE A NEW FORM TO BE FILLED BY REQUESTING HOSPITAL , WILL FAX IT OVER. [facility] AND CALL [facility]. CM TO FOLLOW Addendum: 08/04/19 at 1259 by Katie Treviño CM DC PLANNING CALLED MOOKIE AT [facility] [phone] UPDATED HER PT'S CONDITION AND STATUS. NOTIFIED HER [facility] NOT ACCEPTING AT THIS TIME AND WE ARE STILL WAITING FROM [facility], [facility] TO ACCEPT PT FOR HIGHER LEVEL , AT THE SAME TIME DISCUSSED THE CODE STATUS , PER MOOKIE THE 2 DOCTORS CAN DECIDE AND MAKE HIM DNR. CALLED DR PRIYANKA Silva AND NOTIFIED MOOKIE'S RESPONSE , STATED HE WILL DISCUSSED WITH OTHER DR AND WILL DECIDE. CM TO FOLLOW Addendum: 08/04/19 at 1315 by Katie Treviño CM DC PLANNING: RECEIVED A CALL FROM KARINA GUILLAUME OF [facility] STATED SHE SPOKE WITH PULMO AND SURGEON AND THEY ARE UNABLE TO ACCEPT PATIENT SEEMS NEEDS TERRITORY CARE. CM TO FOLLOW Addendum: 08/04/19 at 1639 by Katie Treviño CM DC PLANNING RECEIVED A CALL FROM [facility] [phone] SPOKE WITH ICT PROGRAMMER GRACE STATED THEY ARE AT [facility] , NOT ACCEPTING ANY PATIENT AT THIS TIME. CM TO FOLLOW Addendum: 08/06/19 at 1402 by Katie Treviño CM DC PLANNING: PT SCHEDULE FOR SURGERY TO CLOSE THE ABDOMINAL WOUND. SPOKE WITH DR PRIYANKA Silva STATED HE WILL CALL [facility] [place] AND DISCUSSED THE CODE STATUS AND THE POOR PROGNOSIS OF PT'S CONDITION. CM TO FOLLOW. Addendum: 08/07/19 at 1609 by Lorena Estes CM PER DR CANDELARIO, NO NEED FOR [employer]ITTEE TO MEET. HE STATED WE ONLY NEED TO HAVE ALL THE PHYSICIANS INVOLVE IN THE CASE TO MAKE A NOTE STATING THAT CHANGING THE CODE STATUS TO DNR IS BENEFICIAL TO THE PATIENT AND IS IN AGREEMENT TO THE PLAN. CHARGE NURSE ELIAS MADE AWARE.
--- NOTE | 2019-07-24 16:47 | NUR ---
PT RASS RETURN TO -2 WILL MAINTIAN PROPOFOL IS, PROVIDED ORAL CARE, REPOSITIONED PT, LEFT BED IN LOWEST POSITION WITH HOB 30 DEGREES PER PROTOCOL, WILL CONTINUE TO MONITOR PT. Addendum: 07/24/19 at 1650 by Rene Galvez RN PT RASS DECREASE TO -4 DECREASE PROPOFOL FROM 10 MCG/KG/MIN TO 5 MCG/KG/MIN WILL CONTINUE TO MONITOR PT
[2019-07-24] MEDS ORDERED: NACL 0.9% 1,000 ML IV SCH (16:55)
--- NOTE | 2019-07-24 17:25 | NUR ---
1715 RT AT BEDSIDE ADJUSTED ETT PT AWOKE AGITATED PULLED OUT RIGHT EJ, INCREASED PROPOFOL TO 10 MCG/KG/MIN, WILL CONTINUE TO MONITOR
--- NOTE | 2019-07-24 19:15 | NUR ---
DOCUMENTATIONS BY VANNESA HAIRSTON RN AND DARY FOR THIS SHIFT REVIEWED AND CONCUR.
--- NOTE | 2019-07-24 19:18 | NUR ---
ENDORSED PT TO COSTUMER NURSE
--- NOTE | 2019-07-24 19:20 | NUR ---
RECEIVED CHANGE OF SHIFT REPORT AT BEDSIDE FROM DAY SHIFT NURSE. PT IS UNRESPONSIVE TO PAIN STIMULI. LEFT EYE SLUGGISHLY REACTIVE TO LIGHT. 4MM. RIGHT EYE IS NONREACTIVE. PT IS INTUBATED W/ ETT 7.5 TAPED AT 24. VENT SETTINGS A/CVC FIO2 60%, 500 VT, RATE 18, 5 PEEP. LUNG SOUNDS ARE CLEAR RIGHT UPPER LOBE. WHEEZES ON EXPIRATION IN LEFT UPPER LOBES. S1 S2 HEARD. RIGHT RADIAL PULSE FELT. +2 AND REGULAR. CAP REFILL <3. BUNDLE BLOCK BRANCH ON MONITOR. PT HAS ABDOMINAL BINDER. G-TUBE PRESENT. NO RESIDUALS. TUBE FEEDING VITAL AF RUNNING AT 25ML/HR W/ FWF 110 ML Q4HR. +2 EDEMA NOTED LEFT ARM AND LEFT LEG. PT HAS PIV RIGHT AC 18G AND RIGHT FOOT 20G. BOTH LINES ARE ASYMPTOMATIC, PATENT, AND INTACT. PROPOFOL RUNNING AT 10MCG/KG/HR (6.12 ML/HR) AND NS 100ML/HR. THOMPSON CATHETER IS PRESENT. SKIN IS INTACT W/ FACIAL DIAPHORESIS. BED IS LOCKED, IN LOW POSITION. SAFETY MEASURES IN PLACE. WILL CONTINUE TO MONITOR. Addendum: 07/24/19 at 2151 by Mumtaz Donahue RN RN PROPOFOL FOR RASS -2. DRY WEIGHT 102KG. DOUBLE CHECKED W/ RT FOR LUNG SOUNDS. WHEEZES NOT HEARD IN LEFT UPPER LOBE. RHONCHI HEARD IN LEFT UPPER LOBE, DIMINISHED BILATERAL BASES.
[2019-07-24] MEDS: VALPROIC ACID 250 MG/5 ML UDC GT SCH (20:12)
[2019-07-24] MEDS: DOCUSATE 100 MG/10 ML UDC GT SCH (20:12)
[2019-07-24] MEDS ORDERED: ATENOLOL 25 MG TAB GT SCH (21:00)
--- NOTE | 2019-07-24 21:00 | NUR ---
PT UNABLE TO OPEN EYES TO VOICE. EYES SLUGGISH TO LIGHT 4MM. VITAL SIGNS STABLE, SR W/ BBB ON MONITOR. PROVIDED VAP ORAL CARE. SAFETY MEASURES IN PLACE. CALL LIGHT WITHIN REACH. WILL CONTINUE TO MONITOR.
--- NOTE | 2019-07-24 23:45 | NUR ---
CHECKED IN ON PT. PT IS AROUSABLE TO SHAKING. INCREASED FEEDING TO 50 ML/HR. PROVIDED VAP ORAL CARE. EDEMA ON LEFT HAND +1. EDEMA ON LEFT FOOT +2. REPOSITIONED PT. UO 225 PINK, CLOUDY, MUCOUS TRENDS. CALL LIGHT WITHIN REACH. BED LOCKED, IN LOW POSITION. WILL CONTINUE TO MONITOR.
[2019-07-25] VITALS (104 sets, daily range): BP systolic 65–136; BP diastolic 24–88
--- NOTE | 2019-07-25 01:51 | NUR ---
CHECKED ON PT. FEEDING WAS STOPPED AFTER DISCOVERY OF RESIDUALS OF 400ML. PT IS SINUS TACHY W/ BBB ON MONITOR. TEMPORARILY RELEASED PT FROM RESTRAINTS. SKIN UNDERNEATH IS FREE FROM INJURY. RADIAL IS +2 W/ REGULAR RHYTHM. SAFETY MEASURES IN PLACE. WILL CONTINUE TO MONITOR.
--- NOTE | 2019-07-25 03:30 | NUR ---
PT HAS EYES CLOSE, APPEARING TO BE RESTING. EQUAL RISE AND FALL OF CHEST. SINUS TACHY W/ BBB ON MONITOR. VITALS SIGNS OTHERWISE STABLE.
[2019-07-25] MEDS: PIPERACILLIN/TAZOBACTAM 3.375 GM in DEXTROSE 5% 50 ML IV SCH ×3 (04:36→20:58)
[2019-07-25] MEDS: PROPOFOL 1000 MG/100 ML PREMIX 100 ML IV PRN ×3 (05:10→14:19)
[2019-07-25] MEDS: VANCOMYCIN 1,000 MG in DEXTROSE 5% 250 ML IV SCH (05:24)
--- NOTE | 2019-07-25 05:37 | NUR ---
CALLED RT DUE TO PT TACHYPNEA TO 34 AND DECREASED SPO2 90%. RT INCREASED FIO2 TO 60% AND SUCTIONED. PT SPO2 IMPROVED TO 95% AND RATE WAS BROUGHT DOWN TO 22. PT TEMPORAL TEMPERATURE WAS 100.3. COOLING MEASURES TAKEN. ICE PACKS WERE PLACED IN AXILLARY, DAMP WASHCLOTH WAS PLACED ON FOREHEAD AND BLANKET WAS TAKEN OFF. NEW TEMPERATURE WAS 98.6. GASTRIC RESIDUALS WERE 300+ML. TUBE FEEDING STILL HELD. PROPOFOL RUNNING AT 10MCG/KG/HR (6.12 ML/HR). DRY WEIGHT 102KG. NS 100ML/HR. PIV 20G IN THE RIGHT FOOT WAS ASYMPTOMATIC, PATENT AND INTACT. PIV RIGHT AC ASYMPTOMATIC, PATENT AND INTACT. BED IS LOCKED, IN LOW POSITION, CALL LIGHT WITHIN REACH. WILL CONTINUE TO MONITOR.
[2019-07-25 06:00] LABS: HEMATOCRIT 47.4 % (36-52); HEMOGLOBIN 15.8 g/dL (12.0-18.0); MEAN CORPUSCULAR HEMOGLOBIN 30 pg (27-31); MEAN CORPUSCULAR HGB CONC 33 g/dL (33-37); MEAN CORPUSCULAR VOLUME 88.9 fL (80-94); PLATELET COUNT (AUTO) 268 K/uL (140-450); RED BLOOD CELL COUNT(AUTO) 5.33 MIL/uL (4.20-6.10); WHITE BLOOD COUNT (AUTO) 7.4 K/uL (4.8-10.8)
--- NOTE | 2019-07-25 06:30 | NUR ---
PT TEMPERATURE ABELARDO TO 103. CALLED DR. MATHEW. ORDERED TYLENOL SUPPOSITORY 650 MG. COOLING BLANKET, RECTAL TEMPERATURE APPLIED. PT AGITATION INCREASING. ADMINISTERED ATIVAN 2MG IVP AND INCREASED PROPOFOL. SEE IV SPREADSHEET.
[2019-07-25] MEDS: LORazepam 2 MG/ML VIAL IVP PRN (06:32)
[2019-07-25 06:39] LABS: ALBUMIN 2.5 g/dL (3.4-5.0); ANION GAP 14.1 (8-16); CARBON DIOXIDE 25.7 mmol/L (21-32); MAGNESIUM 1.5 mg/dL (1.8-2.4); PHOSPHORUS 3.1 mg/dL (2.5-4.9); POTASSIUM 4.8 mmol/L (3.5-5.1)
--- NOTE | 2019-07-25 06:40 | NUR ---
REC'D PT ON [place] VENT SETTINGS AC 18 VT 500 PEEP 5 FIO2 60% ALARMS ON AND AUDIBLE AND AMBU BAG AT SIDE OF VENT AND VENT IS PLUGGED INTO RED OUTLET , SXN PT MODERATED AMT OF THICK YELLOW SECRETIONS, B\S ARE RHONCHI BILATERALLY, PT IS VERY AGITATED AND PT IS ORALLY INTUBATED WITH 7.5 ETT SECURED WITH ANCHOR FAST AT 22CM
[2019-07-25] MEDS ORDERED: ACETAMINOPHEN 650 MG SUPP RC ONE (06:52)
--- NOTE | 2019-07-25 07:20 | NUR ---
ENDORSED PT TO DAY SHIFT NURSE TO ENSURE CONTINUITY OF CARE
--- NOTE | 2019-07-25 07:30 | NUR ---
RECEIVED PT FROM PM NURSE, PT DRY WEIGHT 102 KG, RASS -2, RIGHT EYE SLUGGISH 3 MM PT LEFT EYE NON REACTIVE, PT SKIN INTACT, ETT TO VENT FIO2 60 VT 500 RR 18 PEEP 5, S1 AND S2 HEART SOUNDS HEARD, LUNG SOUNDS DIMINISHED, PT HAS, G TUBE IN PLACE RESIDUAL 75 ML, PT HAS THOMPSON IN PLACE BRUNO IN COLOR, PT HAS RIGHT AC 18 G INFUSING PROPOFOL 25 MCG/KG/MIN, 0.9 NS 100 ML/HR, PT HAS RIGHT FOOT PERIPHERAL IV 22 G INFUSING PIGGY BACKS AND NS 5 ML/HR TKO, PT ABDOMEN ROUND AND FIRM, PULSES PALPABLE BILATERAL, PT LEFT SIDE EXTREMITIES COOL UPPER AND LOWER. HX OF CVA LEFT SIDED WEAKNESS NOTICED, RESTRAINT ON RIGHT WRIST, PT HOB 30 DEGREES PER PROTOCOL AND IN LOWEST IN POSITION, WILL CONTINUE TO MONITOR PT.
[2019-07-25] MEDS: NACL 0.9% 1,000 ML IV SCH (07:40)
[2019-07-25 08:07] LABS: EOSINOPHILS % (MANUAL) 1 % (0-4); LYMPHOCYTES % (MANUAL) 20 % (20-46); MONOCYTES % (MANUAL) 10 % (5-12)
[2019-07-25] MEDS: DOCUSATE 100 MG/10 ML UDC GT SCH ×2 (08:37→20:14)
[2019-07-25] MEDS: VALPROIC ACID 250 MG/5 ML UDC GT SCH ×2 (08:37→20:14)
[2019-07-25] MEDS: PANTOPRAZOLE 40 MG INJ VIAL IVP SCH (08:37)
[2019-07-25] MEDS: ASCORBIC ACID 500 MG TAB GT SCH (08:37)
[2019-07-25] MEDS: QUEtiapine FUMARATE 100 MG TAB GT SCH ×3 (08:38→16:52)
[2019-07-25] MEDS ORDERED: MAG SULF 2000 MG/WATER PREMIX 50 ML IV SCH (09:00)
[2019-07-25] MEDS ORDERED: LEVOFLOXACIN 500 MG/D5W PREMIX 100 ML IV SCH (09:00)
--- NOTE | 2019-07-25 09:00 | NUR ---
MEDICATIONS GIVEN PT TOLERATED MEDS, WILL CONTINUE TO MONITOR
--- NOTE | 2019-07-25 09:00 | NUR ---
PHONE CALL MADE TO [facility] LINDA ZIMMERMAN [phone] FOR CONSENT FOR PICC LINE. MESSAGE LEFT.
[2019-07-25] MEDS: clonazePAM 0.5 MG TAB GT SCH ×3 (09:06→16:53)
--- NOTE | 2019-07-25 09:20 | NUR ---
PT. ADMITTED WITH LOW COLIN SCALE AT RISK,CONTINUE TO FOLLOW PRESSURE ULCER PREVENTION INTERVENTIONS. -TURN AND REPOSITION PATIENT Q 2H -ASSESS AND MONITOR SKIN CONDITION DURING POSITION CHANGE -OFFLOAD BILATERAL HEELS BY PLACING PILLOWS UNDER CALVES AT ALL TIMES, UNLESS OTHERWISE CONTRAINDICATED -PRESSURE REDISTRIBUTION BY PLACING PILLOWS AND OFFLOADING SACRALCOCCYX -KEEP SKIN CLEAN AND DRY AT ALL TIMES.
[2019-07-25] MEDS: BENZTROPINE 1 MG TAB GT SCH (09:28)
[2019-07-25] MEDS: NOREPINEPHRINE 4 MG in DEXTROSE 5% 250 ML IV PRN ×2 (09:39→14:27)
--- NOTE | 2019-07-25 11:10 | NUR ---
PT STILL HAVING FEVER, TEMP 104.4F. COOLING MEASURES IN PLACE. HR 128, BP 89/62 (MAP 69) AT THIS TIME ON LEVOPHED DRIP. DR. JOYCE MATHEW MADE AWARE OF FEVER AND TACHYCARDIA. NO NEW ORDER RECEIVED AT THIS TIME, CONTINUE CURRENT TREATMENT PER DR. PRIYANKA Kunz. WILL CONTINUE TO MONITOR.
--- NOTE | 2019-07-25 12:00 | NUR ---
PT HAS RESIDUALS OF 200ML DISCONTINUED TUBE FEEDING FOR THE TIME BEING, WILL CONTINUE TO MONITOR PT
[2019-07-25 12:41] LABS: CREATINE KINASE MB 2.7 ng/mL (0-3.6)
[2019-07-25] MEDS: POLYETHYLENE GLYCOL 17 GM/PKT GT SCH (12:58)
--- NOTE | 2019-07-25 13:05 | NUR ---
DR. PRIYANKA Silva IN THE UNIT TO SEE AND EXAMINE PT, MADE AWARE OF GT RESIDUALS 200 ML, G-TUBE LEAKAGE, AND LOW URINE OUTPUT WITH HEMATURIA. WILL FOLLOW UP ON ORDERS. Addendum: 07/25/19 at 1832 by Love Shaffer RN DR. MATHEW MADE AWARE THAT URINE OUTPUT WAS ONLY ABOUT 85 ML SINCE 6 AM.
--- NOTE | 2019-07-25 13:15 | NUR ---
DR. MENG MADE AWARE OF CENTRAL LINE INSERTION ORDER FROM DR. PRIYANKA Kunz. PER DR. MENG, THE EARLIEST TIME HE CAN COME TO INSERT CENTRAL LINE IS LATER TONIGHT. DR. PRIYANKA Silva AWARE.
--- NOTE | 2019-07-25 14:35 | NUR ---
VANCO TROUGH REPORTED FROM MEGAN AT 23.2 WILL HOLD 1400 DOSE PER PHARMACY
--- NOTE | 2019-07-25 14:40 | NUR ---
DR. ARMENDARIZ AWARE TUBE FEEDING ON HOLD DUE TO HIGH RESIDUALS. ORDERED TO CHANGE IV FLUID TO D5 1/2NS AT 75 ML/HR.
[2019-07-25] MEDS: DEXT 5% / NACL 0.45% 1,000 ML IV SCH (14:45)
--- NOTE | 2019-07-25 14:49 | NUR ---
DR. PRIYANKA Toledo MADE AWARE OF PT HR, AND BLOOD PRESSURE, TOLD TO BOLUS 500 ML 0.9 NS Addendum: 07/25/19 at 1506 by Rene Galvez RN DR. PRIYANKA Hernandez
[2019-07-25] MEDS ORDERED: NACL 0.9% 500 ML IV ONE ×2 (14:50→15:40)
--- NOTE | 2019-07-25 14:57 | NUR ---
DR. CHOLO [facility], WILL CONTINUE TO MONITOR PT Addendum: 07/25/19 at 1506 by Rene Galvez RN DR. ARMENDARIZ
--- NOTE | 2019-07-25 15:25 | NUR ---
CALLED ED MILLARD [phone], [facility] SECONDARY TEACHER FOR UPDATES. CALL WASN'T ANSWERED AND MAILBOX WAS FULL AT THIS TIME.
--- NOTE | 2019-07-25 16:20 | NUR ---
DR. CONCEPCION AT BEDSIDE MADE AWARE OF POSITIVE BLOOD CX GT COCCI IN CLUSTER
--- NOTE | 2019-07-25 16:37 | NUR ---
LINDA ZIMMERMAN CLINICAL NURSING INSTRUCTOR FROM [facility] CALLED BACK. UPDATED ON PT'S CONDITION. PER LINDA IT WAS ALRIGHT THAT 2 PHYSICIANS SIGNED THE CONSENT FOR INSERTION OF CENTRAL LINE.
[2019-07-25] MEDS: ACETAMINOPHEN 650 MG/20.3 ML UDC GT PRN ×2 (16:51→20:59)
--- NOTE | 2019-07-25 17:22 | NUR ---
PT RESIDUALS 475 ML, MEDICATION GIVEN, PT FEVER TRENDING DOWN, TEMP 102.3 AT THIS TIME, WILL CONTINUE TO MONITOR PT
--- NOTE | 2019-07-25 17:31 | NUR ---
DR. HERRERA MADE AWARE OF NEW CONSULTATION DUE TO HIGH GT RESIDUALS AND G-TUBE LEAKAGE. REPORT GIVEN ON PT'S CONDITION. DR. HERRERA STATED HE WILL SEE PT TOMORROW.
--- NOTE | 2019-07-25 17:39 | NUR ---
CALLED [facility] SPOKE WITH JOSE MILLARD BOILER COVERER OF FACILITY TO UPDATE ON PT CONDITION. PT NURSE DONALD ALVARADO CAN BE CONTACTED FOR FURTHER HX OF PT IF NEEDED AT . BOILER COVERER WOULD LIKE TO BE NOTIFIED OF COVID 19 DIAGNOSIS WHEN RESULTS COME IN. PT RECEIVED VACCINES FLU, AND PNEUMOCOCCAL NOV 2018
[2019-07-25] MEDS: NOREPINEPHRINE 16 MG in DEXTROSE 5% 250 ML IV PRN (18:13)
--- NOTE | 2019-07-25 18:47 | NUR ---
DR. ARMENDARIZ MADE AWARE OF PT'S DECREASED BLOOD PRESSURE AND DECREASED URINE OUTPUT ABOUT 15 ML/HR. NEW ORDERS RECEIVED.
[2019-07-25] MEDS ORDERED: PHENYLEPHRINE 10 MG in NACL 0.9% 250 ML IV PRN (18:55)
[2019-07-25] MEDS: IPRATROPIUM 0.02% 0.5 MG/2.5 ML NEBU INH SCH (19:00)
[2019-07-25] MEDS: ALBUTEROL 0.083% 2.5 MG/3 ML NEBU INH SCH (19:00)
--- NOTE | 2019-07-25 19:15 | NUR ---
RECEIVED PT ON DOCUMENTED SETTINGS. VENT PLUGGED INTO RED OUTLET. BMV AT BEDSIDE. ALARMS SET. ETT SECURED AND INTACT. WILL CONT TO MONITOR
--- NOTE | 2019-07-25 19:21 | NUR ---
ENDORSED PT TO HARBOR PILOT NURSE, NO SIGNS OF DISTRESS NOTED AT THIS TIME
--- NOTE | 2019-07-25 19:25 | NUR ---
RECEIVED REPORT FROM [facility] NURSE. PATIENT SEDATED, RASS -2. WITHDRAWS TO PAIN, DOES NOT OPEN EYES. EYES ARE UNEQUAL, LEFT EYE NOT ROUND/REACTIVE. RIGHT EYE 3MM, PERRL. ORALLY INTUBATED, ACVC 18, FI02 60%, TV 500, PEEP 5. LUNG SOUNDS CLEAR ALL THROUGHOUT, NO SIGNS OR SYMPTOMS OF SOB/CONGESTION. S1S2, SINUS TACH ON MONITOR, HEART RATE 118 BPM. SKIN IS WARM TO TOUCH. COOLING MEASURES IN PLACE (COOLING BLANKET AND RECTAL THERMOMETER IN PLACE) 102.5 TEMP. FOREHEAD IS DIAPHORETIC. ABDOMEN IS LARGE ROUND FIRM AND DISTENDED. NO BOWEL SOUNDS HEARD. GTUBE IN PLACE, CLAMPED, NOT CONNECTED TO FEEDING AT THIS TIME. PERIPHERAL IV TO RIGHT AC 18G, FLUSHED AND PATENT, NO SYMPTOMS. SALINE LOCKED. RIGHT FOOT 20 G, FLUSHED WITHOUT SYMPTOMS, SALINE LOCKED. RIGHT FEMORAL CENTRAL LINE IN PLACE, INFUSING PROPOFOL-15 MCG/KG/MIN: 9.18 ML/HR (DRY WEIGHT RECORDED 102KG), LEVOPHED 16MG/250ML @ 24 MCG/MIN (22.49 ML/HR), AND IV FLUIDS D51/2NS @ 75ML/HR. THOMPSON CATHETER IN PLACE, BRUNO URINE WITH SEDIMENT NOTED. RIGHT UPPER EXTREMITY HAS SOFT WRIST RESTRAINT, LEFT UPPER EXTREMITY IS FLACCID-HX: CVA AND LT SIDE HEMIPARESIS. SEIZURE PRECAUTIONS IN PLACE, BED LOCKED AND IN LOWEST POSITION, SIDERAILS UP. CONTACT/DROPLET PRECAUTIONS IN PLACE TO RULE OUT COVID. WILL CONTINUE TO MONITOR.
--- NOTE | 2019-07-25 20:05 | NUR ---
LAB RESULTS RECEIVED, SARS-CoV-2 "NOT DETECTED"
[2019-07-25] MEDS: MIDAZOLAM MDV 50 MG in NACL 0.9% 40 ML IV PRN (20:18)
[2019-07-25] MEDS: fentaNYL 1 MG in NACL 0.9% 80 ML IV PRN (20:24)
--- NOTE | 2019-07-25 20:50 | NUR ---
CORE TEMPERATURE STILL HIGH, 102.7, COOLING BLANKET FEELS WARM. ADDED MORE WATER TO COOLING MACHINE. TURNED AND REPOSITIONED PATIENT, REINFORCED RECTAL THERMOMETER AND REMOVED BLANKETS AND EXTRA PILLOWS. ICE COLD PACKS APPLIED TO AXILLARY AND COLD WASH CLOTH TO HEAD. PROVIDED TYLENOL VIA GTUBE AND ADMINISTERED BY GRAVITY. WILL CONTINUE TO MONITOR TEMP/VITALS.
--- NOTE | 2019-07-25 21:00 | NUR ---
FLUSHED PERIPHERAL IV TO RIGHT FOOT, AND D/C IV. PT ALREADY HAS RIGHT AC AND FEMORAL CENTRAL LINE. CANNULA INTACT. SITE DRESSED. PT TOLERATED WELL. GTUBE RESIDUALS 30 ML BUT LEAKING MEDICATIONS. DRESSING SOILED. REPLACED DRESSING AND PROVIDED SKIN CARE. CLAMPED TUBING AND CONTINUE TO KEEP FEEDING ON HOLD. PAGED TO NOTIFY.
--- NOTE | 2019-07-25 22:05 | NUR ---
AWARE OF PATIENTS UPDATED CONDITION-NEGATIVE COVID, AND INFORMED OF LEAKING GTUBE SITE, RESIDUALS 30ML BUT MEDICATION SEAPS FROM SITE. OK TO HOLD FEEDING FOR NOW, IV FLUIDS ALREADY IN PLACE, IV MEDS OK TO GIVE IF NEEDED. PENDING GI CONSULT TOMORROW WITH DR. HERRERA.
[2019-07-25] MEDS: VANCOMYCIN 750 MG in DEXTROSE 5% 250 ML IV SCH (22:40)
[2019-07-26] VITALS (95 sets, daily range): BP systolic 78–142; BP diastolic 26–89
--- NOTE | 2019-07-26 00:10 | NUR ---
SEDATED, RASS -2, PATIENT WITHDRAWS TO LIGHT PAIN, DOES NOT OPEN EYES. RIGHT SIDE UE/LE MOVES BUT LEFT SIDE IS FLACCID. REMOVED RESTRAINT TO RIGHT WRIST, SKIN INTACT, CIRCULATION INTACT. EDEMA NOTED BUE, GENERALIZED. TEMPERATURE GOING DOWN, RECTAL-100.2. TURNED AND REPOSITIONED, GTUBE SITE LEAKING PROVIDED SKIN CARE AND NEW GOWN/LINEN. TOLERATED WELL, VAP ORAL CARE PROVIDED.
[2019-07-26] MEDS: ALBUTEROL 0.083% 2.5 MG/3 ML NEBU INH SCH ×4 (01:00→19:03)
[2019-07-26] MEDS: IPRATROPIUM 0.02% 0.5 MG/2.5 ML NEBU INH SCH ×4 (01:00→19:03)
--- NOTE | 2019-07-26 01:00 | NUR ---
NO TX GIVEN. PT BREATHS SOUNDS WERE CLEAR. GOOD AERATION THROUGHOUT THE LUNGS. SATURATION 95. SX SCANT AMOUNT OF SECRETIONS. WILL CONT TO MONITOR
--- NOTE | 2019-07-26 03:15 | NUR ---
EYES CLOSED, WITHDRAWS TO PAIN, SEIZURE PRECAUTIONS IN PLACE. NO SIGNS OF DISTRESS OR SOB. SUCTIONED SMALL AMOUNT OF SECRETIONS. TURNED AND REPOSITIONED, BLANKETS REMAIN OFF FOR LOW GRADE TEMPERATURE.
--- NOTE | 2019-07-26 04:15 | NUR ---
PROVIDED COLD ICE BATH PER ELEVATED TEMPERATURE, PATIENT TOLERATED WELL. REINFORCED COOLING BLANKET AND ADDED MORE WATER. THOMPSON CARE AND VAP ORAL CARE PROVIDED. GTUBE SITE AND DRESSING IS SOILED, ONE WHOLE TOWEL SOILED. REPLACED DRESSING AND ADDED LAUREN PAD TO ABSORB GASTRIC CONTENT. RASS -2. WITHDRAWS TO PAIN. SKIN INTACT AT RIGHT SOFT WRIST RESTRAINT. SAFETY MEASURES IN PLACE, WILL CONTINUE TO MONITOR.
--- NOTE | 2019-07-26 04:55 | NUR ---
pt remains on documented setting. vent plugged into red outlet. bmv at bedside. alarms set. ett secured and intact. will cont to monitor
--- NOTE | 2019-07-26 05:15 | NUR ---
TEMPERATURE STILL ELEVATED, ADDED MORE COOLING MEASURES AND PROVIDED SUPPOSITORY. WILL CONTINUE TO MONITOR.
[2019-07-26] MEDS: ACETAMINOPHEN 650 MG SUPP RC PRN ×2 (05:36→18:20)
[2019-07-26] MEDS: PIPERACILLIN/TAZOBACTAM 3.375 GM in DEXTROSE 5% 50 ML IV SCH ×3 (05:53→21:29)
[2019-07-26] MEDS: VANCOMYCIN 750 MG in DEXTROSE 5% 250 ML IV SCH (05:54)
[2019-07-26 06:06] LABS: BASOPHILS # (AUTO) 0.1 K/uL (0.00-0.22); BASOPHILS % (AUTO) 0.6 % (0.0-2.0); EOSINOPHILS # (AUTO) 0.1 K/uL (0-0.4); EOSINOPHILS % (AUTO) 0.8 % (0.0-4.0); HEMATOCRIT 42.7 % (36-52); HEMOGLOBIN 13.8 g/dL (12.0-18.0); LYMPHOCYTES # (AUTO) 1.7 K/uL (2.0-11.5); LYMPHOCYTES % (AUTO) 12.3 % (20.5-51.1); MEAN CORPUSCULAR HEMOGLOBIN 29 pg (27-31); MEAN CORPUSCULAR HGB CONC 32 g/dL (33-37); MEAN CORPUSCULAR VOLUME 89.5 fL (80-94); MONOCYTES # (AUTO) 2.1 K/uL (0.8-1.0); MONOCYTES % (AUTO) 15.3 % (1.7-9.3); NEUTROPHILS # (AUTO) 9.9 K/uL (1.8-7.7); PLATELET COUNT (AUTO) 206 K/uL (140-450); RED BLOOD CELL COUNT(AUTO) 4.77 MIL/uL (4.20-6.10); RED CELL DISTRIBUTION WIDTH 14.3 % (11.6-13.7)
[2019-07-26] MEDS: NOREPINEPHRINE 16 MG in DEXTROSE 5% 250 ML IV PRN ×2 (07:19→18:13)
[2019-07-26 07:21] LABS: ALBUMIN 1.9 g/dL (3.4-5.0); ANION GAP 18.4 (8-16); CARBON DIOXIDE 19.7 mmol/L (21-32); CREATININE 1.8 mg/dL (0.6-1.3); POTASSIUM 4.1 mmol/L (3.5-5.1); TOTAL BILIRUBIN 2.2 mg/dL (0.0-1.0)
--- NOTE | 2019-07-26 07:30 | NUR ---
RECEIVED BEDSIDE REPORT FROM LABOR RELATIONS CONSULTANT NURSE. PATIENT SEDATED, RASS -2. WITHDRAWS TO PAIN, DOES NOT OPEN EYES. EYES ARE UNEQUAL, LEFT EYE NOT ROUND/REACTIVE. RIGHT EYE 3MM, PERRL. FLACC 0, ETT TO VENT WITH ACVC 18, FI02 60%, TV 500, PEEP 5. CLEAR LUNG SOUNDS BERNARD., NO S/S OF DISTRESS. ST ON TOWEL SORTER, NONPITTING EDEMA TO BERNARD ARM AND LEGS. LARGE ROUND FIRM AND DISTENDED ABDOMEN WITH NO BOWEL SOUNDS HEARD, GTUBE IN PLACE, CLAMPED, LEAKING NOTED, TENDERNESS NOTED, THOMPSON CATHETER IN PLACE, BRUNO URINE WITH SEDIMENT NOTED. LEFT SIDE OF WEAKNESS NOTED, ABLE TO MOVE RIGHT SIDE WHEN TOUCH, SKIN IS WARM AND DRY TO TOUCH. NO OPEN WOUNDS AT THIS TIME, PERIPHERAL IV TO RIGHT AC 18G, PATENT AND SL. CENTRAL LINE TO RIGHT FEMORAL, PATENT, RUNNING VERSED AT 1MG/HR, FENTANYL AT 0.5 MCG/KG/HR, LEVOPHED AT 25MG/KG/MIN, AND IV D51/2NS AT 75ML/HR. HOB ELEVATED TO 30 DEGREES, SAFETY MEASURE AND SEIZURE PRECAUTIONS IN PLACE, WILL CONTINUE TO MONITOR.
[2019-07-26] MEDS: fentaNYL 1 MG in NACL 0.9% 80 ML IV PRN (08:58)
[2019-07-26] MEDS: PANTOPRAZOLE 40 MG INJ VIAL IVP SCH (08:58)
[2019-07-26] MEDS: DEXT 5% / NACL 0.45% 1,000 ML IV SCH (08:59)
[2019-07-26] MEDS: QUEtiapine FUMARATE 100 MG TAB GT SCH ×3 (09:00→16:18)
[2019-07-26] MEDS: BENZTROPINE 1 MG TAB GT SCH (09:00)
[2019-07-26] MEDS: VALPROIC ACID 250 MG/5 ML UDC GT SCH ×2 (09:00→21:00)
[2019-07-26] MEDS: clonazePAM 0.5 MG TAB GT SCH ×3 (09:00→16:18)
[2019-07-26] MEDS: ASCORBIC ACID 500 MG TAB GT SCH (09:00)
[2019-07-26] MEDS: DOCUSATE 100 MG/10 ML UDC GT SCH ×2 (09:00→21:00)
--- NOTE | 2019-07-26 09:00 | NUR ---
ORAL CARE PROVIDED, PT IS NPO AT THIS TIME, NOT ABLE TO GIVE GT MEDICATION
--- NOTE | 2019-07-26 09:45 | NUR ---
DR. ARMENDARIZ CAME IN TO SEE PATIENT AT BEDSIDE, UPDATED PATIENT'S CONDITION, WILL FOLLOW UP WITH NEW ORDERS.
[2019-07-26] MEDS ORDERED: NACL 0.9% 1,000 ML IV SCH (09:50)
--- NOTE | 2019-07-26 10:32 | NUR ---
NGT INSERTED TO LEFT NARES ORDERED, PLACEMENT VERIFIED WITH TWO RN'S, CONNECTED TO LOW WALL INTERMIT SUCTION WITH SMALL AMOUNT OF LIGHT GREENISH EMESIS NOTED.
--- NOTE | 2019-07-26 11:21 | NUR ---
FIO2 CHANGED TO 35% BY DR. ARMENDARIZ
[2019-07-26] MEDS: POLYETHYLENE GLYCOL 17 GM/PKT GT SCH (11:29)
--- NOTE | 2019-07-26 12:00 | NUR ---
PT STILL SEDATED RASS -2, NO S/S OF DISTRESS, VSS, FLACC 0, ORAL CARE PROVIDED, POSITION CHANGED FOR OFF LOAD PRESSURE.
--- NOTE | 2019-07-26 13:10 | NUR ---
DR. MATHEW CAME IN TO SEE PATIENT AT BEDSIDE, WILL FOLLOW UP WITH NEW ORDERS.
--- NOTE | 2019-07-26 13:26 | NUR ---
Woven Label Designer Note: Basic Screen: Yes High Risk DC Screen Lydia: JOSE MILLARD [place] Relationship: OTHER RELATIONSHIP Pre-Admission Living Arrangements: Board and Care Other: [facility] Current Home Health Name/Tel: N/A Current DME/02 Name/Tel: BED BOUND, WHEELCHAIR Current Hospice Name/Tel: N/A Current Dialysis Name/Tel: N/A Healthcare Decision Maker: Community/hospice case manager Other: [facility] Advance Directive No Physician Orders for Life Sustaining Treatment Form No Patient/Family Have Educational Needs No Discipline: Case Mgt/Social Svcs Tentative Discharge Plan/Destination: Board and Care Other: [facility] Will require assistance post discharge: No Referred to Hospital Social Worker: No Tentative Discharge Plan Summary: Patient is a 48-year-old male admitted for respiratory failure. Patient has PMHX of cerebrovascular accide, hypertension, seizures, and hypothyroidism. Patient was admitted from [facility]. contacted Janet from [facility] [phone]. Per Janet, patient is bed bound and utilizes a wheelchair. Janet reported that patient is alert/oriented at baseline and that patient's healthcare decision maker is [facility] Worker Beverly Zimmerman. Janet stated she would return phone call with Beverly Zimmerman's contact information. Patient needs assistance with ADLs. Tentative discharge plan is for pateint to return to [facility] depending on medica condition. Signature: MALIK Tolentino Date: Jul 26, 2019 Time: 13:25
--- NOTE | 2019-07-26 14:00 | NUR ---
NO S/S OF DISTRESS, VSS, FLACC 0, POSITION CHANGED FOR OFF LOAD PRESSURE.
--- NOTE | 2019-07-26 15:45 | NUR ---
OFF UNIT FOR CT SCAN WITH RN, RT AND WARDROBE COORDINATOR.
--- NOTE | 2019-07-26 16:00 | NUR ---
PATIENT IS BACK FROM CT, NO S/S OF DISTRESS, VSS, FLACC 0, PM CARE AND ORAL CARE PROVIDED, THOMPSON CATHETER CARE DOME, POSITION CHANGED FOR OFF LOAD PRESSURE.
--- NOTE | 2019-07-26 17:55 | NUR ---
DR. Sophia HERRERA NOTIFIED OF CT SCAN OF ABDOMEN AND PELVIS RESULTS. CONT. NGT TO LOW INTERMITTENT SUCTION. RECOMMENDED TO HAVE A SURGICAL CONSULT.
--- NOTE | 2019-07-26 18:00 | NUR ---
SPOKE TO DR. JOYCE MATHEW RE: CT SCAN OF THE ABDOMEN AND PELVIS RESULTS AND DR. HERRERA'S RECOMMENDATIONS. ORDERED FOR CONSULT FOR DR. MENG.
--- NOTE | 2019-07-26 18:05 | NUR ---
DR. TAQUERIA CRUZ. MADE AWARE OF THE CONSULT AND THE CT SCAN OF THE ABDOMEN AND PELVIS RESULTS. WILL BE HERE TO SEE PATIENT.
--- NOTE | 2019-07-26 18:45 | NUR ---
DR. MENG CAME IN TO SEE PATIENT AT BEDSIDE, STATED KEEP PT NPO NOW AND CONTINUE SUCTION.
--- NOTE | 2019-07-26 19:12 | NUR ---
RECEIVED PT FROM DAY SHIFT ON DOCUMENTED SETTING. VENT PLUGGED INTO RED OUTLET. BMV AT BEDSIDE. ALARMS AUDIBLE AND WORKING. ETT SECURED AND INTACT. BREATHING TX GIVEN. NO SX NEEDED AT THIS TIME. ETT 7.5 @ 22 GUM. WILL CONT TO MONITOR
--- NOTE | 2019-07-26 19:20 | NUR ---
REPORT GIVEN TO PLANT TAXONOMY TEACHER NURSE FOR CONTINUE OF CARE, PT IS RESTING IN BED, NO S/S OF DISTRESS, STILL ON SEDATION, RASS -2, FLACC 0.
--- NOTE | 2019-07-26 19:30 | NUR ---
RECEIVED BEDSIDE REPORT FROM YAMEL HORTON. FLACC 0. PATIENT SEDATED WITH RASS -2 ACHIEVED, PER MD ORDERS. WITHDRAWS TO PAINFUL STIMULI, DOES NOT OPEN EYES/TRACK. PUPILS UNEQUAL, LEFT EYE NOT ROUND, NON-REACTIVE. RIGHT EYE 3MM/ REACTIVE. ETT TO VENT. ACVC MODE WITH SETTINGS FOLLOWS: FI02 30%, TV 500, RT 18, PEEP 5. LUNGS CLEAR THROUGHOUT. ST ON FIELD SALES MANAGER, +1 PITTING EDEMA TO BILATERAL HANDS/FEET. ROUND, FIRM, DISTENDED, ABDOMEN WITH HYPOACTIVE BOWEL SOUNDS UPON AUSCULTATION. G-TUBE IN PLACE, NOT BEING USED AT THIS TIME, PER MD ORDERS. THOMPSON CATHETER IN PLACE WITH LIGHT BRUNO URINE NOTED. LEFT-SIDED HEMIPARESIS NOTED. MOVES RIGHT SIDE TO PAINFUL STIMULI. SKIN WARM, DRY, AND INTACT. PERIPHERAL IV TO RT AC 18G, PATENT, INFUSING D5 1/2 @ 75ML/HR. CENTRAL LINE TRIPLE LUMEN CATH TO RIGHT FEM, PATENT, RUNNING VERSED AT 1MG/HR, FENTANYL AT 0.5 MCG/KG/HR, LEVOPHED AT 22MG/KG/MIN. SAFETY MEASURES/ SEIZURE PRECAUTIONS IN PLACE, HOB ELEVATED @ 30 DEGREES, WILL CONTINUE TO MONITOR FOR CHANGES. Addendum: 07/26/19 at 2125 by Nicole Carson RN DRY WEIGHT [phone]
--- NOTE | 2019-07-26 21:00 | NUR ---
Joaquina CHRISTIANSON. R/T VALPRO[facility] ACID ROUTE CLARIFICATION. AWAITING RETURN CALL.
--- NOTE | 2019-07-26 22:00 | NUR ---
PT LYING IN BED. RASS -2 PER MD ORDERS. FLACC 0. VAP ORAL CARE PROVIDED. REPOSITIONED WITH PRESSURE AREAS OFFLOADED. HOB @ 30 DEGREES. SAFETY/SEIZURE PRECAUTIONS REMAIN IN PLACE. WILL CONT TO MONITOR.
--- NOTE | 2019-07-26 22:57 | NUR ---
VENT SETTINGS REMAIN THE SAME. NO CHANGES MADE. SX SMALL AMOUNT OF THICK WHITE SECRETIONS. WILL CONT TO MONITOR
[2019-07-27] VITALS (107 sets, daily range): BP systolic 83–136; BP diastolic 50–95
--- NOTE | 2019-07-27 | NUR ---
REPOSITIONED. CATH CARE PROVIDED. FLACC 0. SAFETY/SEIZURE PRECAUTIONS IN PLACE. WILL CONT TO MONITOR.
[2019-07-27] MEDS: ALBUTEROL 0.083% 2.5 MG/3 ML NEBU INH SCH ×4 (01:26→23:32)
[2019-07-27] MEDS: IPRATROPIUM 0.02% 0.5 MG/2.5 ML NEBU INH SCH ×4 (01:26→23:31)
[2019-07-27] MEDS: DEXT 5% / NACL 0.45% 1,000 ML IV SCH ×2 (02:00→06:45)
--- NOTE | 2019-07-27 02:00 | NUR ---
PT RESTING IN BED.RASS -2 PER MD ORDERS. FLACC 0. BED LOW AND LOCKED. SEIZURE PRECAUTIONS REMAIN IN PLACE. CONTINUES ON INTERMITTENT SUCTION. PT TOLERATING WELL. WILL CONT TO MONITOR.
--- NOTE | 2019-07-27 04:00 | NUR ---
VAP ORAL CARE PROVIDED. HOB @ 30 DEGREES. SUCTIONED WITH SCANT AMOUNT OF CLEAR SECRETIONS NOTED. PT TOLERATED WELL. SAFETY PRECAUTIONS IN PLACE. WILL CONT TO MONITOR.
--- NOTE | 2019-07-27 04:20 | NUR ---
PT REMAINS ON DOCUMENTED SETTINGS. VENT PLUGGED INTO RED OUTLET. ALARMS AUDIBLE AND WORKING. BMV AT BEDSIDE. ETT SECURED WITH ANKORFAST. PT REMAINS STABLE. WILL CONT TO MONITOR
[2019-07-27] MEDS: PIPERACILLIN/TAZOBACTAM 3.375 GM in DEXTROSE 5% 50 ML IV SCH ×3 (04:30→20:17)
[2019-07-27] MEDS: MIDAZOLAM MDV 50 MG in NACL 0.9% 40 ML IV PRN (05:56)
[2019-07-27 06:18] LABS: BASOPHILS # (AUTO) 0.1 K/uL (0.00-0.22); BASOPHILS % (AUTO) 0.5 % (0.0-2.0); EOSINOPHILS # (AUTO) 0.3 K/uL (0-0.4); EOSINOPHILS % (AUTO) 2.6 % (0.0-4.0); HEMATOCRIT 36.2 % (36-52); HEMOGLOBIN 11.8 g/dL (12.0-18.0); LYMPHOCYTES # (AUTO) 0.7 K/uL (2.0-11.5); LYMPHOCYTES % (AUTO) 6.3 % (20.5-51.1); MEAN CORPUSCULAR HEMOGLOBIN 29 pg (27-31); MEAN CORPUSCULAR HGB CONC 33 g/dL (33-37); MEAN CORPUSCULAR VOLUME 88.1 fL (80-94); MONOCYTES # (AUTO) 1.5 K/uL (0.8-1.0); MONOCYTES % (AUTO) 13.4 % (1.7-9.3); NEUTROPHILS # (AUTO) 8.7 K/uL (1.8-7.7); NEUTROPHILS % (AUTO) 77.2 % (42.2-75.2); PLATELET COUNT (AUTO) 166 K/uL (140-450); RED BLOOD CELL COUNT(AUTO) 4.11 MIL/uL (4.20-6.10); RED CELL DISTRIBUTION WIDTH 14.3 % (11.6-13.7); WHITE BLOOD COUNT (AUTO) 11.2 K/uL (4.8-10.8)
--- NOTE | 2019-07-27 07:00 | NUR ---
RECIVED PT ON VENT WITH SETTINGS CHARTED BREATH SOUNDS PRESENT BILATY CLEAR ETT SECURE AMBU BAG BEDSIDE VENT PLUGGED INTO RED OUTLET WILL CONTINUE TO MONITOR PT ON VENT
[2019-07-27 07:03] LABS: ALBUMIN 1.7 g/dL (3.4-5.0); ANION GAP 11.7 (8-16); CARBON DIOXIDE 23.9 mmol/L (21-32); MAGNESIUM 1.7 mg/dL (1.8-2.4); PHOSPHORUS 2.6 mg/dL (2.5-4.9); POTASSIUM 3.6 mmol/L (3.5-5.1); TOTAL BILIRUBIN 2.2 mg/dL (0.0-1.0)
[2019-07-27] MEDS: fentaNYL 1 MG in NACL 0.9% 80 ML IV PRN ×2 (07:21→14:45)
--- NOTE | 2019-07-27 07:30 | NUR ---
ENDORSED PT TO DAYSHIFT RN @ THIS TIME. VSS.
--- NOTE | 2019-07-27 08:00 | NUR ---
REPORT RECEIVED FROM CAMERA TECHNICIAN NURSE. PT STABLE. NO SIGNS OF DISTRESS OBSERVED AT THIS TIME. AC/VC- FIO2 30%, TV500, RATE 18, PEEP 5. SKIN WARM, DRY AN INTACT. ORAL MUCOSA PINK AND MOIST. RESPIRATION EVEN AND EQUAL CHEST RISE/FALL. VITAL SIGNS STABLE. GTUBE, NGT INTACT. STILL ON LEVOPHED, VERSED, FENTANYL DRIPS. CLEAR LUNG SOUNDS ON THE UPPER RIGHT AND LEFT AND DIMINISHED ON THE BASES. ABDOMEN ROUND AND FIRM. WILL CONTINUE TO MONITOR.
[2019-07-27] MEDS: DOCUSATE 100 MG/10 ML UDC GT SCH (08:57)
[2019-07-27] MEDS: BENZTROPINE 1 MG TAB GT SCH (08:57)
[2019-07-27] MEDS: clonazePAM 0.5 MG TAB GT SCH (08:58)
[2019-07-27] MEDS: VALPROIC ACID 250 MG/5 ML UDC GT SCH ×2 (08:58→20:16)
[2019-07-27] MEDS: ASCORBIC ACID 500 MG TAB GT SCH (09:00)
[2019-07-27] MEDS: QUEtiapine FUMARATE 100 MG TAB GT SCH ×3 (09:00→20:17)
[2019-07-27] MEDS: VANCOMYCIN 1,000 MG in DEXTROSE 5% 250 ML IV SCH ×2 (09:09→21:39)
[2019-07-27] MEDS: PANTOPRAZOLE 40 MG INJ VIAL IVP SCH (09:16)
[2019-07-27] MEDS ORDERED: MAG SULF 2000 MG/WATER PREMIX 50 ML IV SCH (11:00)
--- NOTE | 2019-07-27 11:00 | NUR ---
DR. HERRERA CAME IN TO SEE PATIENT AT BEDSIDE, CONTINUE TO HOLD TUBE FEEDING, OK TO GIVE MEDICATIONS PER DR. HERRERA.
--- NOTE | 2019-07-27 11:45 | NUR ---
DR. MENG CAME IN TO SEE PATIENT AT BEDSIDE, UPDATED PATIENT'S CONDITION, WILL FOLLOW UP WITH NEW ORDERS.
[2019-07-27] MEDS: POLYETHYLENE GLYCOL 17 GM/PKT GT SCH ×3 (11:49→17:26)
--- NOTE | 2019-07-27 11:59 | NUR ---
PT SUCTIONED OBTAINED MODERATE AMOUNT OF THICK BLOOD TINGED SECRETIONS, AIRWAY IS PATENT AND ETT IS SECURE. NURSE BEDSIDE. WILL CONTINUE TO MONITOR.
--- NOTE | 2019-07-27 12:10 | NUR ---
PATIENT HAD SEVERAL EPISODE OF V-TACH WITH HR 160-180, DR. PRIYANKA BUCKLEY, HE SAID HE WILL COME TO SEE PATIENT.
[2019-07-27] MEDS ORDERED: MAGNESIUM CITRATE 300 ML BTL GT SCH (12:15)
[2019-07-27] MEDS: METOCLOPRAMIDE 10 MG/2 ML INJ VIAL IVP SCH ×2 (12:38→20:16)
[2019-07-27] MEDS: SENNA 8.6 MG TAB GT SCH ×2 (12:46→17:26)
[2019-07-27] MEDS: POTASSIUM CHL 20MEQ/D5-NS 1,000 ML IV SCH (12:59)
--- NOTE | 2019-07-27 13:41 | NUR ---
DR. MATHEW CAME IN TO SEE PATIENT, PT'S HR 150-190, WILL FOLLOW UP WITH NEW ORDERS.
[2019-07-27] MEDS ORDERED: AMIODARONE 150 MG in DEXTROSE 5% 100 ML IV SCH (14:00)
--- NOTE | 2019-07-27 14:14 | NUR ---
HEART RATE UNSTABLE AT THIS TIME. AMIODARONE ORDERED BY MD. ADMINISTERED. WILL CONTINUE MONITOR PATIENT.
[2019-07-27] MEDS: AMIODARONE 450 MG in DEXTROSE 5% 250 ML IV SCH ×2 (15:00→23:23)
--- NOTE | 2019-07-27 15:35 | NUR ---
07/27/19 RD FOLLOW UP COMPLETED PLEASE REFER TO NUTRITION ASSESSMENT UNDER CARE ACTIVITY FOR ESTIMATED NUTRITIONAL NEEDS. 1. IF PATIENT WILL CONTINUE ON NPO WITH NO TUBE FEEDING CONSIDER TPN 2. IF/WHEN PATIENT IS MEDICALLY CLEARED, CONSIDER VITAL 1.2 @ 70 ML/HR X 24 HR. START AT 25 ML/HR AND ADVANCE BY 25 ML/HR Q4H -THIS WILL PROVIDE 2016 KCAL AND 126 GM OF PROTEIN WHICH MEETS 100% OF ESTIMATED NEEDS 3. RECOMMEND FREE WATER FLUSH [address] TO FOLLOW-UP 2-3 DAYS, HIGH RISK OCT[address]IA [address]
--- NOTE | 2019-07-27 16:44 | NUR ---
PT STABLE AT THIS TIME. HEART RATE OF 100-110 AT THIS TIME. STILL ON AMIODARONE, LEVOPHED, FENTANYL, VERSED DRIPS. RASS -2. WILL CONTINUE MONITOR PATIENT.
--- NOTE | 2019-07-27 17:22 | NUR ---
CONTINUED TO MONITOR PT ON VENT WITH SETTINGS CHARTED BREATH SOUNDS PRESENT BILAT COARSE SXN PT WITH REDDISH SECS ET PLUGGED INTO RED OUTLET
--- NOTE | 2019-07-27 19:30 | NUR ---
PATIENT STABLE. VITALS WITHIN NORMAL LIMITS. ENDORSED PT TO EMERGENCY MEDICAL SERVICE MANAGER NURSE ARIADNE FOR CONTINUITY OF CARE.
--- NOTE | 2019-07-27 19:31 | NUR ---
RECEIVED CHANGE OF SHIFT REPORT AT BEDSIDE FROM DAYSHIFT NURSE. PT IS ABLE TO OPEN EYES TO LIGHT TOUCH. EYES ARE SLUGGISH TO LIGHT. 4MM. PT IS ETT TO VENT W/ VENT SETTING AT A/C VC FIO2 30% VT 500 RATE 18 PEEP 5. LUNG SOUNDS ARE CLEAR W/ DIMINISHED BASES. EQUAL RISE AND FALL OF THE CHEST. S1S2 HEARD. +2 RADIAL PULSES FELT. CAP REFILL <3 SECS. PT DOES HAVE +2 PITTING EDEMA OF THE LEFT ARM. PIV OF THE RIGHT AC THAT IS REDDENED. PT HAS A FEMORAL LINE W/ DRESS DCI, AND IS ASYMPTOMATIC. PT IS ON SEDATED W/ FENTANYL 1 MCG/KG/HR (10.2 ML/HR) AND VERSED 2 MG/HR (2ML/HR) FOR RASS SCORE OF -2. DRY WEIGHT IS 102KG. PT IS ALSO ON LEVOPHED DRIP RUNNING AT 17.99 MCG/MIN (16.87ML/HR) TO KEEP MAP ABOVE 65. POTASSIUM CHLORIDE 20MEQ/D5NS RUNNING AT 80 ML/HR. PT HAS AMIODARONE DRIP RUNNING AT 1MG/MIN (33ML/HR). ABDOMEN IS ROUND DISTENDED AND FIRM. GASTRIC RESIDUALS ARE NOTED. PT IS NPO EXCEPT MEDS. THOMPSON CATHETER IS NOTED W/ DARK BRUNO URINE. PT IS FLACCID ON THE LEFT SIDE. BED IS LOCKED IN LOW POSITION. SAFETY MEASURES IN PLACE. WILL CONTINUE TO MONITOR.
[2019-07-27] MEDS ORDERED: BISACODYL 10 MG SUPP RC SCH (21:00)
--- NOTE | 2019-07-27 21:00 | NUR ---
DECREASED AMIODARONE DRIP FROM 1 MG/MIN (33ML/HR) TO 0.5 MG/MIN (16.66 ML/HR) PER PROTOCOL.
--- NOTE | 2019-07-27 21:15 | NUR ---
PHONE CALL TO PICC LINE NURSE AVILES ([phone]); LEFT MESSAGE.AWAITING CALL BACK
--- NOTE | 2019-07-27 21:49 | NUR ---
INCREASED VERSED DRIP FROM 2MG/HR (2ML/HR) TO 3 MG/HR(3ML/HR) FOR RASS SCORE OF -2
--- NOTE | 2019-07-27 22:30 | NUR ---
PT HAS EYES CLOSED. AROUSABLE TO LIGHT TOUCH. ABLE TO OPEN EYES. UNABLE TO FOLLOW COMMANDS. PT WAS REPOSITIONED. RESTRAINT WAS RELEASED. SKIN UNDERNEATH IS DRY, CLEAN, INJURY FREE. CAP REFILL <3 SECS. BED IS LOCKED IN LOW POSITION. WILL CONTINUE TO MONITOR.
[2019-07-27] MEDS: NOREPINEPHRINE 16 MG in DEXTROSE 5% 250 ML IV PRN (23:21)
[2019-07-28] VITALS (108 sets, daily range): BP systolic 90–136; BP diastolic 51–89
--- NOTE | 2019-07-28 | NUR ---
PT HAS EYES CLOSED, APPEARING TO BE RESTING. NO APPARENT SIGNS OF DISTRESS. RIGHT ARM IS REDDENED AND EDEMATOUS. NO FLUIDS RUNNING THROUGH LINE. RESTRAINTS WERE TEMPORARILY. SKIN UNDERNEATH RESTRAINTS IS INJURY FREE. WILL CONTINUE TO MONITOR.
[2019-07-28] MEDS: fentaNYL 1 MG in NACL 0.9% 80 ML IV PRN ×3 (00:50→22:22)
[2019-07-28] MEDS: POTASSIUM CHL 20MEQ/D5-NS 1,000 ML IV SCH ×2 (00:52→14:36)
[2019-07-28] MEDS: ALBUTEROL 0.083% 2.5 MG/3 ML NEBU INH SCH ×4 (01:00→19:10)
[2019-07-28] MEDS: IPRATROPIUM 0.02% 0.5 MG/2.5 ML NEBU INH SCH ×4 (01:00→19:10)
--- NOTE | 2019-07-28 02:00 | NUR ---
PT IN LIGHT SEDATION TO KEEP RASS -2 VIA FENTANYL AND VERSED DRIPS. PT BLOOD PRESSURE IS WNL W/ LEVOPHED DRIP. RECTAL TEMPERATURE RANGING BETWEEN 99.8-100. WILL CONTINUE TO MONITOR.
[2019-07-28] MEDS: PIPERACILLIN/TAZOBACTAM 3.375 GM in DEXTROSE 5% 50 ML IV SCH ×3 (04:11→20:32)
[2019-07-28] MEDS: METOCLOPRAMIDE 10 MG/2 ML INJ VIAL IVP SCH ×3 (04:11→20:30)
[2019-07-28 05:19] LABS: HEMATOCRIT 39.7 % (36-52); MEAN CORPUSCULAR HEMOGLOBIN 29 pg (27-31); MEAN CORPUSCULAR HGB CONC 33 g/dL (33-37); MEAN CORPUSCULAR VOLUME 87.9 fL (80-94); PLATELET COUNT (AUTO) 189 K/uL (140-450); RED BLOOD CELL COUNT(AUTO) 4.51 MIL/uL (4.20-6.10); RED CELL DISTRIBUTION WIDTH 14.2 % (11.6-13.7); WHITE BLOOD COUNT (AUTO) 15.7 K/uL (4.8-10.8)
[2019-07-28 05:41] LABS: ANION GAP 10.2 (8-16); CARBON DIOXIDE 23.8 mmol/L (21-32)
[2019-07-28 06:43] LABS: EOSINOPHILS % (MANUAL) 1 % (0-4); MONOCYTES % (MANUAL) 10 % (5-12)
[2019-07-28 06:47] LABS: LYMPHOCYTES % (MANUAL) 9 % (20-46)
[2019-07-28 07:26] LABS: MAGNESIUM 4.2 mg/dL (1.8-2.4)
[2019-07-28] MEDS: MIDAZOLAM MDV 50 MG in NACL 0.9% 40 ML IV PRN (07:27)
--- NOTE | 2019-07-28 07:30 | NUR ---
RECEIVED BEDSIDE REPORT FROM BINDING BENCH WORKER RN. PT IS SEDATED, RASS -2. TEMP 99.6. . FLACC 0. PERRL. NSR-ST WITH BBB ON MONITOR. S1 S2 HEARD. CAP REFILL < 3 SEC. PULSES PALPABLE ALL EXTREMITIES. EDEMA TO BUE. PT IS ETT TO VENT A/C VC FIO2 30%, VT 500, RR 18, PEEP 5. LUNGS SOUND CLEAR BILATERALLY, DIMINISHED AT BASES. BREATHING EVEN AND UNLABORED. NGT IN PLACE TO LEFT NARE, CONNECTED TO LOW INTERMITTENT SUCTION, PLACEMENT CONFIRMED. ABDOMEN ROUND, FIRM, DISTENDED, G-TUBE IN PLACE, SMALL AMOUNT OF LEAKAGE NOTED AROUND STOMA. CENTRAL LINE TLC TO RIGHT FEMORAL PATENT AND INTACT, PT IS RECEIVING FENTANYL DRIP AT 1 MCG/KG/HR (DRY WEIGHT 102 KG), VERSED DRIP AT 3 MG/HR, LEVOPHED DRIP AT 18 MCG/MIN, AMIODARONE DRIP AT 0.5 MG/MIN, [id number] AT 80 ML/HR. THOMPSON CATH IN PLACE DRAINING BRUNO URINE TO GRAVITY. SKIN IS DRY AND WARM TO TOUCH. HX CVA WITH LEFT SIDED WEAKNESS NOTED. SOFT WRIST RESTRAINT IN PLACE TO RIGHT WRIST, NO SKIN BREAK. HOB AT 30 DEGREES. BED IN LOWEST POSITION LOCKED. CALL LIGHT WITHIN REACH. NO SIGNS OF DISTRESS AT THIS TIME. WILL CONTINUE TO MONITOR.
--- NOTE | 2019-07-28 07:41 | NUR ---
RECEIVED ON A [employer] R860 VENTILATOR PLUGGED INTO RED OUTLET TOLERATING WELL WITHOUT ADVERSE REACTIONS NOTED TO AN ENDOTRACHEAL TUBE #7.5 SECURED AT 22cm WITH AN ANCHOR FAST AMBU BAG NOTED AT BESIDE GOOD CHEST RISE AND AERATION THROUGHOUT BILATERAL LUNG MEDINA AIRWAY PATENT PIP NOTED AT 42 MATTRESS SPRING ENCASER TO MONITOR
--- NOTE | 2019-07-28 07:41 | NUR ---
ENDORSED PT TO DAYSHIFT NURSE TO ENSURE CONTINUITY OF CARE
--- NOTE | 2019-07-28 07:42 | NUR ---
OBESE ABDOMINAL FIRM AND EXTENDED
[2019-07-28] MEDS: POLYETHYLENE GLYCOL 17 GM/PKT GT SCH ×3 (09:14→16:38)
[2019-07-28] MEDS: ASCORBIC ACID 500 MG TAB GT SCH (09:14)
[2019-07-28] MEDS: SENNA 8.6 MG TAB GT SCH ×3 (09:15→16:38)
[2019-07-28] MEDS: PANTOPRAZOLE 40 MG INJ VIAL IVP SCH (09:15)
[2019-07-28] MEDS: VANCOMYCIN 1,000 MG in DEXTROSE 5% 250 ML IV SCH ×2 (09:15→20:32)
--- NOTE | 2019-07-28 09:30 | NUR ---
MEDICATIONS ADMINISTERED ORDERED.
--- NOTE | 2019-07-28 09:31 | NUR ---
SEDATED NO PULMONARY DISTRESS NOTED GOOD CHEST RISE ENDOTRACHEAL SUCTIONING NOT REQUIRED AT THIS TIME AIRWAY PATENT
--- NOTE | 2019-07-28 10:00 | NUR ---
CALLED [facility] REGARDING [facility], VOICE MESSAGE LEFT TO HOUSE SUP. CALLED BACK NUMBER NOTIFIED.
--- NOTE | 2019-07-28 10:32 | NUR ---
DR. PRIYANKA Silva IN TO SEE PT. PER DR. MATHEW, KEEP CALLING [facility] FOR AVAILABLE BED, NO NEED TO INFANTE TO TRANSFER PT TO [facility]. WILL FOLLOW UP WITH ANY NEW ORDERS.
[2019-07-28] MEDS: VALPROIC ACID 250 MG/5 ML UDC GT SCH ×2 (10:43→20:26)
--- NOTE | 2019-07-28 11:25 | NUR ---
RECEIVED A CALL FROM DR. PRIYANKA Hernandez. UPDATES GIVEN ON PT'S CONDITION. ORDERS RECEIVED.
--- NOTE | 2019-07-28 11:38 | NUR ---
NOTED PATIENT PRESENTING WITH EXTENDED FIRM ABDOMEN PEAK INSPIRATORY PRESSURE ASCENDING TO 45 WITH I/E RATIO AT 1:2.0 USING IDEAL WEIGHT BODY FORMULA DECREASED VT TO 450 ml INCREASED FLOW TO 32 THUS INCREASING I/E RATIO TO 1:2.7 FOREST PATHOLOGIST TO MONITOR ROTANA/RN NOTIFIED OF VT CHANGE
[2019-07-28] MEDS ORDERED: AMIODARONE 200 MG TAB PO SCH (11:39)
[2019-07-28] MEDS ORDERED: AMIODARONE 200 MG TAB GT SCH (11:40)
[2019-07-28] MEDS ORDERED: TPN PER PHARMACY MC PRN (11:40)
--- NOTE | 2019-07-28 11:40 | NUR ---
PT SEEN AND EXAMINED BY DR. HERRERA AT BEDSIDE. ORDERS RECEIVED. Addendum: 07/28/19 at 1150 by Love Shaffer RN PER DR. HERRERA, KEEP NGT CLAMPED, NO MORE LOW INTERMITTENT SUCTION NEEDED, ORDER CARRIED OUT.
[2019-07-28] MEDS ORDERED: FUROSEMIDE 20 MG/2 ML VIAL IVP SCH (11:46)
[2019-07-28] MEDS ORDERED: SODIUM PHOSPHATE 15 MMOLE in NACL 0.9% 250 ML IV SCH (12:00)
[2019-07-28] MEDS ORDERED: MAGNESIUM CITRATE 300 ML BTL GT SCH (12:00)
[2019-07-28] MEDS ORDERED: NEOSTIGMINE 1:1000 10 MG/10 ML VIAL IV SCH (12:20)
--- NOTE | 2019-07-28 13:15 | NUR ---
US ABDOMEN TAKEN AT BEDSIDE.
[2019-07-28] MEDS: AMIODARONE 200 MG TAB GT SCH ×2 (13:23→20:29)
--- NOTE | 2019-07-28 13:29 | NUR ---
SEDATED NO PULMONARY DISTRESS NOTED GOOD CHEST RISE AIRWAY PATENT
[2019-07-28] MEDS ORDERED: SODIUM PHOSPHATE 118 ML ENEM RC SCH ×2 (13:39→18:00)
--- NOTE | 2019-07-28 14:00 | NUR ---
G-TUBE DISLODGED DURING REPOSITIONING. PER DR. MENG, PUT OSTOMY BAG AROUND THE OPENING AND CONNECT TO DRAINAGE BAG AT THIS TIME.
[2019-07-28] MEDS: NOREPINEPHRINE 16 MG in DEXTROSE 5% 250 ML IV PRN (14:36)
--- NOTE | 2019-07-28 15:41 | NUR ---
SEDATED NO DISTRESS NOTED GOOD CHEST RISE NO ENDOTRACHEAL SUCTION REQUIRED AT THIS TIME OROPHARYNGEAL SUCTION FOR MODERATE THIN PALE WHITE SECRETIONS AIRWAY PATENT
--- NOTE | 2019-07-28 16:00 | NUR ---
VAP ORAL CARE GIVEN. TURNED AND REPOSITIONED. PT TOLERATED WELL.
--- NOTE | 2019-07-28 17:07 | NUR ---
CALLED DR. ROSARIO'S OFFICE, ANABEL ANSWERED PHONE CALL.NOTIFIED DR. PRIYANKA COOK REQUESTED DR. ROSARIO CONSULTATION DUE TO LOW SODIUM. PER ANABEL, DR. LOMBARDI ALUM OPERATOR, SHE WILL NOTIFY DR. LOMBARDI.
--- NOTE | 2019-07-28 17:12 | NUR ---
NO DISTRESS NOTED GOOD CHEST RISE AND AERATION THROUGHOUT BILATERAL LUNG MEDINA AIRWAY PATENT
--- NOTE | 2019-07-28 18:00 | NUR ---
RECEIVED A CALL FROM DR. LOMBARDI. UPDATES GIVEN ON PT'S CONDITION. ORDERS RECEIVED.
--- NOTE | 2019-07-28 19:17 | NUR ---
RECEIVED PT FROM DAY SHIFT ON DOCUMENTED SETTINGS. VENT PLUGGED INTO RED OUTLET. BMV AT BEDSIDE. ALARMS AUDIBLE AND WORKING. ETT SECURED AND INTACT. SX SCANT AMOUNT OF SECRETION. PT IS IN NO DISTRESS. WILL CONT TO MONITOR
--- NOTE | 2019-07-28 19:32 | NUR ---
RECEIVED REPORT FROM YANET HORTON. PT ETT TO VENT WITH SETTING A/C VC FIO2 30%, VT 500, RR 18, PEEP 5.NO S/S OF RESP DISTRESS, NO SOB. HOB UP 30-45 DEGREES ALL THE TIMES. NO S/S OF PAIN,NO FACIAL GRIMMICING NOTED. SR WITH BBB ON MONITOR. SEDATED RASS -2. PULSES PALPABLE ALL EXTREMITIES. EDEMA TO BUE PITTING +1 .PER REPORT GT WAS OUT.NGT IN PLACE TO LEFT NARE. PLACEMENT CONFIRMED. ABDOMEN ROUND, FIRM, DISTENDED OLD GT STOMA CONNECT TO DRAINAGE BAG NOTED GREENISH DRAINAGE ON THE BAG. CENTRAL LINE TO RIGHT FEMORAL PATENT AND INTACT, PT ON DRIPS OF FENTANYL DRIP AT 1 MCG/KG/HR (DRY WEIGHT 102 KG), VERSED DRIP AT 2 MG/HR AND LEVOPHED DRIP AT 18 MCG/MIN. PT WILL START WITH TPN AT 50 CC/HR AND WILL INCREASE AT 80 CC/HR AFTER 2 HRS PER ORDER.THOMPSON CATH IN PLACE DRAINING YELLOW URINE TO BSD BAG BY GRAVITY. SKIN WARM TO TOUCH. SOFT WRIST RESTRAINT IN PLACE TO RIGHT WRIST,SKIN INTACT. BED IN LOWEST POSITION LOCKED. CALL LIGHT WITHIN REACH.
--- NOTE | 2019-07-28 19:33 | NUR ---
REPORT GIVEN TO CLINICAL RN LIAISON RN FOR CONTINUITY OF CARE. NO SIGNS OF DISTRESS NOTED AT THIS TIME.
[2019-07-28 20:00] LABS: APPEARANCE,URINE CLEAR (CLEAR); BILIRUBIN,URINE 2+ (NEGATIVE); BLOOD, URINE 2+ (NEGATIVE); COLOR,URINE YELLOW (YELLOW); LEUKOCYTE ESTERASE ,URINE NEGATIVE (NEGATIVE); NITRITE, URINE NEGATIVE (NEGATIVE); UGLUCOSE TRACE (NEGATIVE)
[2019-07-28] MEDS ORDERED: AMINO ACIDS 8.5% IV SCH ×3 (20:00)
[2019-07-28] MEDS ORDERED: DEXTROSE IV SCH ×3 (20:00)
[2019-07-28] MEDS ORDERED: MULTIVITAMIN IV SCH ×3 (20:00)
[2019-07-28 20:13] LABS: RBC,URINE 20-50 /HPF (0-5)
[2019-07-28 20:14] LABS: WBC,URINE NONE SEEN /HPF (0-5)
[2019-07-28] MEDS: QUEtiapine FUMARATE 100 MG TAB GT SCH (20:27)
--- NOTE | 2019-07-28 20:30 | NUR ---
START TPN AT 50 CC/HR
--- NOTE | 2019-07-28 21:30 | NUR ---
NIGHT MEDS GIVEN DEEP WELL.
--- NOTE | 2019-07-28 22:30 | NUR ---
INCREASE TPN TO 80 CC/HR ORDER
[2019-07-28] MEDS: BLOOD GLUCOSE MONITORING 1 DEV DEV MC SCH (23:00)
[2019-07-28] MEDS: INSULIN LISPRO SLIDING SCALE 100 UNITS/ML VIAL SUBQ PRN (23:01)
[2019-07-29] VITALS (104 sets, daily range): BP systolic 90–148; BP diastolic 51–97
--- NOTE | 2019-07-29 | NUR ---
BLOOD SUGAR 235 AND 4 UNITS INSULIN GIVEN SQ ORDER. PT NO FEVER.
[2019-07-29] MEDS: ALBUTEROL 0.083% 2.5 MG/3 ML NEBU INH SCH ×4 (01:00→19:16)
[2019-07-29] MEDS: IPRATROPIUM 0.02% 0.5 MG/2.5 ML NEBU INH SCH ×4 (01:00→19:15)
--- NOTE | 2019-07-29 01:09 | NUR ---
VAP ORAL CARE GIVEN
--- NOTE | 2019-07-29 04:00 | NUR ---
AM CARE GIVEN,BED BATH,ORAL CARE AND F/C CARE.
[2019-07-29] MEDS: METOCLOPRAMIDE 10 MG/2 ML INJ VIAL IVP SCH ×3 (04:40→20:14)
[2019-07-29] MEDS: PIPERACILLIN/TAZOBACTAM 3.375 GM in DEXTROSE 5% 50 ML IV SCH ×3 (04:40→20:19)
--- NOTE | 2019-07-29 04:40 | NUR ---
PT'S NOTED INCREASED HR AND INCREASED AGITATION. ADMINISTERED PRN IVP LORAZEPAM. WILL CONTINUE TO MONITOR PT.
[2019-07-29] MEDS: LORazepam 2 MG/ML VIAL IVP PRN ×2 (04:41→15:53)
--- NOTE | 2019-07-29 04:42 | NUR ---
pt remains on documented settings. vent plugged into red outlet. bmv at bedside. alarms set and audible. ett secured and intact. sx scant amount of thick white secretions. will cont to monitor
[2019-07-29] MEDS: BLOOD GLUCOSE MONITORING 1 DEV DEV MC SCH ×4 (05:18→23:59)
[2019-07-29] MEDS: INSULIN LISPRO SLIDING SCALE 100 UNITS/ML VIAL SUBQ PRN ×3 (05:19→18:06)
[2019-07-29 05:26] LABS: HEMATOCRIT 35.6 % (36-52); HEMOGLOBIN 11.5 g/dL (12.0-18.0); MEAN CORPUSCULAR HEMOGLOBIN 29 pg (27-31); MEAN CORPUSCULAR HGB CONC 32 g/dL (33-37); MEAN CORPUSCULAR VOLUME 88.3 fL (80-94); PLATELET COUNT (AUTO) 169 K/uL (140-450); RED BLOOD CELL COUNT(AUTO) 4.04 MIL/uL (4.20-6.10); RED CELL DISTRIBUTION WIDTH 14.7 % (11.6-13.7); WHITE BLOOD COUNT (AUTO) 16.7 K/uL (4.8-10.8)
--- NOTE | 2019-07-29 05:30 | NUR ---
BLOOD SUGAR 217 , 4 UNITS OF INSULIN GIVEN PER SLIDING SCALE.
[2019-07-29 05:40] LABS: ALBUMIN 1.4 g/dL (3.4-5.0); ANION GAP 8.5 (8-16); CARBON DIOXIDE 27.5 mmol/L (21-32); CREATININE 0.8 mg/dL (0.6-1.3); MAGNESIUM 2.8 mg/dL (1.8-2.4); PHOSPHORUS 3.5 mg/dL (2.5-4.9); TOTAL BILIRUBIN 3.1 mg/dL (0.0-1.0)
[2019-07-29 05:47] LABS: CHOL/HDL RATIO 21.4 (1-4.5)
[2019-07-29 06:38] LABS: BASOPHILS % (MANUAL) 0 % (0-2); EOSINOPHILS % (MANUAL) 2 % (0-4); LYMPHOCYTES % (MANUAL) 8 % (20-46); MONOCYTES % (MANUAL) 16 % (5-12)
--- NOTE | 2019-07-29 06:41 | NUR ---
REC'D PT ON CARESCAPE VENT SETTINGS AC 18 VT450 PEEP 5 FIO2 30% ALARMS ON AND AUDIBLE AND AMBU BAG AT SIDE OF VENT AND VENT IS PLUGGED INTO RED OUTLET, I\L TX GIVEN WITH ALBUTEROL 2.5MG AND ATROVENT 0.5MG WITH NO ADVERSE REACTION POST TX B\S ARE CLEAR BILATERALLY, SXN PT MODERATE AMT OF THICK WHITE SECRETIONS, PT IS ORALLY INTUBATED WITH 7.5 ETT SECURED WITH ANCHOR FAST AT 22CM PT IS SLEEPING
--- NOTE | 2019-07-29 07:14 | NUR ---
REPORT GIVEN TO ALBERT HORTON. PT STILL ON SEDATION.
--- NOTE | 2019-07-29 07:15 | NUR ---
RECEIVED REPORT FROM PM RN. PT IS SEDATED AT THIS TIME. GOAL FOR RASS -2. WITHDRAWS TO PAIN. DOES NOT OPEN EY ES AT THIS TIME. PUPILS ARE UNEQUAL. LEFT EYE SLUGGISH, NOT ROUND. RIGHT EYE 3MM NOT REACTIVE. VITAL SIGNS: T 98.7, HR 90, BP 102/64, RR 18, SPOR 97%. PT ETT TO VENT. VENT SETTINGS AC/VC, FIO2 30%, TV 450, RATE 18, PEEP 5. ETT SIZE 7.5, 24 @ LIP. LUNGS ARE CLEAR BILATERALLY. NO SIGNS OF DISTRESS. CARDIAC SINUS RHYTHM W/ BBB. PULSES PALPABLE X4 EXTREMITIES. CAP REFILL < 3 SECONDS. PITTING EDEMA PRESENT IN LEFT LOWER LEG. EDEMA PRESENT IN HANDS BILATERALLY, RIGHT LOWER LEG. G-TUBE IN PLACE. PT NPO EXCEPT FOR MEDICATIONS VIA G-TUBE. ABDOMEN ROUND, HARD. BOWEL SOUNDS NOT AUDIBLE. DRAINAGE FROM G-TUBE OBSERVED. OSTOMY BAG PRESENT TO COLLECT DRAINAGE. THOMPSON CATHETER IN PLACE. PT RECEIVING LEVOPHED 16 MCG/MIN= RATE14.99 ML/HR, VERSED 2 ML/HR, FENTANYL 1.5 MCG/KG/HR=RATE 15.3 ML/HR, TPN 80 ML/HR. Addendum: 07/29/19 at 1153 by Dylan Vanegas RN PT DRY WEIGHT 102 KG
[2019-07-29] MEDS: fentaNYL 1 MG in NACL 0.9% 80 ML IV PRN ×2 (07:48→16:45)
[2019-07-29] MEDS: MIDAZOLAM MDV 50 MG in NACL 0.9% 40 ML IV PRN ×2 (07:49→20:49)
[2019-07-29] MEDS: NOREPINEPHRINE 16 MG in DEXTROSE 5% 250 ML IV PRN (07:50)
[2019-07-29] MEDS: AMIODARONE 200 MG TAB GT SCH (08:33)
[2019-07-29] MEDS: POLYETHYLENE GLYCOL 17 GM/PKT GT SCH ×3 (08:34→17:00)
[2019-07-29] MEDS: VALPROIC ACID 250 MG/5 ML UDC GT SCH ×2 (08:34→20:15)
[2019-07-29] MEDS: PANTOPRAZOLE 40 MG INJ VIAL IVP SCH (08:35)
[2019-07-29] MEDS: SENNA 8.6 MG TAB GT SCH ×3 (08:35→17:00)
[2019-07-29] MEDS: ASCORBIC ACID 500 MG TAB GT SCH (08:35)
[2019-07-29] MEDS ORDERED: VANCOMYCIN HCL 1.25 GM in NACL 0.9% 250 ML IV SCH (09:00)
[2019-07-29] MEDS: CLINICAL MONITORING MC SCH (09:34)
--- NOTE | 2019-07-29 09:45 | NUR ---
received phone call from Dr. rojas, he will come today to check pt for G-tube but he is not sure which time he can get here. notified house juany Marcial and primary nurse Everett.
[2019-07-29] MEDS: VASOPRESSIN 20 UNITS in NACL 0.9% 250 ML IV SCH (10:14)
--- NOTE | 2019-07-29 10:31 | NUR ---
RECEIVED CALL FROM FABI WILCOX OF [facility]. UPDATES GIVEN ON PT'S CONDITION.
--- NOTE | 2019-07-29 11:00 | NUR ---
FAYE HADDAD FILOMENA CAME TO ICU TALKING ABOUT DR. AGUDELO X-RAY ORDER THREE VIEW. PT UNABLE TO SIT UPRIGHT. called Dr. agudelo cellphone, VOICE MESSAGE LEFT.
[2019-07-29] MEDS: KCL 20 MEQ/WATER INJ PREMIX 100 ML IV SCH ×2 (11:03→12:34)
--- NOTE | 2019-07-29 11:40 | NUR ---
PT SEEN BY DR. BURK, UPDATES GIVEN ON PT'S CONDITION. NO NEW ORDER RECEIVED AT THIS TIME.
--- NOTE | 2019-07-29 12:12 | NUR ---
DR. PRIYANKA Kunz. IN TO SEE PT. UPDATES GIVEN ON PT'S CONDITION. WILL FOLLOW UP ON ORDERS.
--- NOTE | 2019-07-29 13:40 | NUR ---
PT SEEN AND EXAMINED BY David SEGURA. NO NEW ORDERS RECEIVED.
--- NOTE | 2019-07-29 13:55 | NUR ---
DR LOMBARDI IN TO SEE PT. UPDATES GIVEN ON PT CONDITION. WILL FOLLOW UP ON ORDER.
--- NOTE | 2019-07-29 14:15 | NUR ---
DR MENG INSERTED NEW G-TUBE AT BEDSIDE. CONNECTED TO DRAINAGE. DRAINAGE APPEARS LIGHT BROWN. APPROXIMATELY 350 ML COLLECTED IMMEDIATELY. PER DR MENG, KEEP G-TUBE CONNECTED TO DRAINAGE BAG AND NG TUBE CONNECTED TO HIGH, INTERMITTENT SUCTION. NO DRAINAGE NOTED FROM NG-TUBE AT THIS TIME. DR MENG ALSO ORDERED TO HOLD GT PO MEDICATIONS AT THIS TIME.
--- NOTE | 2019-07-29 14:45 | NUR ---
PT SEEN BY DR GONZALEZ @ BEDSIDE. DOES NOT RECOMMEND TRANSFER TO [facility] AT THIS TIME DUE TO DISTENDED ABDOMEN AND DRAINAGE FROM THE PT'S G-TUBE.
--- NOTE | 2019-07-29 14:45 | NUR ---
PER DR. GONZALEZ, PT IS NOT STABLE TO START CPAP WEANING AT THIS TIME.
--- NOTE | 2019-07-29 14:52 | NUR ---
CALLED FAYE BUTT, NOTIFIED DR. HERRERA DID NOT CALL BACK YET, BUT DR. MENG CAME TO HERE ORDERED ABD CT URGENT.
--- NOTE | 2019-07-29 15:00 | NUR ---
NOTIFIED RESPIRATORY DEPT TO REQUEST THE ASSISTANCE OF AN RT W/ DR MENG'S ORDER FOR CT
--- NOTE | 2019-07-29 15:30 | NUR ---
BROUGHT PT TO RADIOLOGY FOR CT W/ CONTRAST OF ABDOMEN. VITAL SIGNS STABLE THROUGHOUT PROCEDURE. PT RETURNED TO ROOM. NO SIGNS OF DISTRESS.
--- NOTE | 2019-07-29 16:10 | NUR ---
DR. PRIYANKA Massey MADE AWARE OF DR. MENG'S RECOMMENDATION TO CONNECT G-TUBE TO GRAVITY DRAINAGE AND NGT TO HIGH INTERMITTENT SUCTION, AND TO HOLD GT MEDS. ORDER RECEIVED TO CHANGE PO AMIODARONE TO IV AMIODARONE. PHARMACIST MADE AWARE OF NEW ORDER.
--- NOTE | 2019-07-29 16:20 | NUR ---
REPORT ABNORMAL CT ABD RESULT TO DR. MENG. NEW ORDER RECEIVED.
--- NOTE | 2019-07-29 16:30 | NUR ---
CALLED DR. HERRERA AGAIN, NOTIFIED THE X-RAY ORDER THREE VIEW , PT UNABLE TO SIT UPRIGHT, SO RD CAN NOT DO IT. ALSO NOTIFIED JAVIER FIGUEROA PT JUST DID ABD CT SHOWS G-TUBE NOT IN STOMACH BUT WE DID GET DRAINAGE ABOUT [address] MENG INSERTED G-TUBE. DR. HERRERA STATED JUST DO WHATEVER RD CAN ONE VIEW OR TWO VIEW. HE WILL COME TO CHECK PT TOMORROW, CALLED RD DEPARTMENT. Addendum: 07/29/19 at 1655 by Toby Johnson RN NOTIFIED FAYE AGUILAR.
--- NOTE | 2019-07-29 17:00 | NUR ---
FAYE AGUILAR AND RONY AT BEDSIDE TO DO KUB, THEY WANTED TO CLARIFY ORDER WITH DR. HERRERA, CALLED DR. HERRERA, VOICE MESSAGE LEFT.
--- NOTE | 2019-07-29 17:10 | NUR ---
X-RAY AT BEDSIDE FOR KUB AND G-TUBE CONTRAST STUDY TO CONFIRM G-TUBE PLACEMENT.
--- NOTE | 2019-07-29 17:49 | NUR ---
DR. MENG MADE AWARE OF THE RESULT OF XR ABDOMEN: TUBE PLACEMENT W/ CONTRAST. PER DR. MENG, HE WILL TALK TO RADIOLOGIST. CALL TRANSFERRED TO RADIOLOGY DEPARTMENT PER DR. MENG'S REQUEST.
--- NOTE | 2019-07-29 19:10 | NUR ---
CHANGE OF SHIFT REPORT GIVEN TO PM CLIFFORD ALVAREZ AND CLIFFORD SALEH. PT IS STABLE AT THIS TIME. NO SIGNS OF DISTRESS NOTED.
--- NOTE | 2019-07-29 19:30 | NUR ---
REPORT RECEIVED FROM DAY SHIFT NURSE. PT STABLE. ORAL MUCOSA PINK AND MOIST. RESPIRATION EVEN AND EQUAL CHEST RISE/FALL. VITAL SIGNS STABLE. GTUBE, NGT INTACT. NO SIGNS OF DISTRESS OBSERVED AT THIS TIME. AC/VC- FIO2 30%, TV450, RATE 18, PEEP 5. SKIN WARM, DRY AN INTACT. CLEAR LUNG SOUNDS ON THE UPPER RIGHT AND LEFT AND DIMINISHED ON THE BASES. ABDOMEN ROUND AND FIRM. WILL CONTINUE TO MONITOR.
[2019-07-29] MEDS: ALBUTEROL SULFATE/IPRATROPIU 3 ML SOL IH PRN (19:43)
--- NOTE | 2019-07-29 19:48 | NUR ---
RECEIVED PATIENT ETT TO MECHANICAL VENTILATOR AT DOCUMENTED SETTINGS. VENT CHECK DONE. VENT PLUGGED INTO RED OUTLET WITH WHEELS LOCKED. VENT ALARMS ON AND AUDIBLE. AIRWAY SECURE AND PATENT. SUCTIONED SMALL AMOUNT OF THICK, WHITE SECRETIONS. BVM AT BEDSIDE. SCHEDULED BREATHING TREATMENT ADMINISTERED. TOLERATED TX WELL WITHOUT ADVERSE SIDE EFFECTS. DIFFUSE WHEEZING PRESENT POST TX. PRN TX ADMINISTERED. TOLERATED WELL, INCREASED AERATION, MINIMAL WHEEZING PRESENT POST PRN TX. WILL CONTINUE TO MONITOR CLOSELY.
[2019-07-29] MEDS: MULTIVITAMIN IV SCH ×3 (19:51)
[2019-07-29] MEDS: DEXTROSE IV SCH ×3 (19:51)
[2019-07-29] MEDS: AMINO ACIDS 8.5% IV SCH ×3 (19:51)
[2019-07-29] MEDS: QUEtiapine FUMARATE 100 MG TAB GT SCH (20:16)
[2019-07-29] MEDS: AMIODARONE 150 MG in DEXTROSE 5% 100 ML IV SCH (20:19)
--- NOTE | 2019-07-29 21:20 | NUR ---
DR. MENG'S URGENT ORDER OF CT BIOPSY/ASP CATH PLACEMENT FOLLOW IT UP TO RADIOLOGY/CT DEPT. AND PER JEFF THEY ALREADY NOTIFIED THE RADIOLOGIST AND IT WOULD BE DONE TOMORROW MORNING.
--- NOTE | 2019-07-29 21:40 | NUR ---
PEAK PRESSURES AND PLATEAU PRESSURES HIGH. DR. GONZALEZ PAGED. PER PHYSICIAN, PT PLACED ON PRESSURE CONTROL. PT TOLERATING PC VENTILATION WELL- MAINTAINING ADEQUATE TIDAL VOLUMES WITH DECREASE IN PEAK PRESSURE. ABG TO BE DRAWN IN 30 MINS. WILL CALL WITH RESULTS.
--- NOTE | 2019-07-29 22:00 | NUR ---
No respiratory distress observed. Skin warm and dry. Wang cath intact, patent and draining to gravity. Will continue monitor.
--- NOTE | 2019-07-29 22:15 | NUR ---
ABG DRAWN WITHOUT INCIDENT. ABG RESULTS GIVEN TO DR. GONZALEZ. NEW VENT ORDERS GIVEN AND INITIATED. PT TOLERATING WELL. RN NOTIFIED OF CHANGES. ABG TO BE DRAWN IN AM. WILL CONTINUE TO MONITOR CLOSELY.
[2019-07-30] VITALS (97 sets, daily range): BP systolic 79–163; BP diastolic 56–94
--- NOTE | 2019-07-30 | NUR ---
Patient stable at this time. No signs of distress observed. Patient turned and repositioned. Will continue to monitor.
[2019-07-30] MEDS: IPRATROPIUM 0.02% 0.5 MG/2.5 ML NEBU INH SCH ×2 (01:22→06:35)
[2019-07-30] MEDS: ALBUTEROL 0.083% 2.5 MG/3 ML NEBU INH SCH ×2 (01:22→06:35)
--- NOTE | 2019-07-30 02:00 | NUR ---
Vital signs WNL. Still on fentanyl and versed drip. Rass -3. Open eyes to voice, light pain. Will continue to monitor pt. Addendum: 07/30/19 at 0312 by Mohan Irving RN Cristal singh -3
[2019-07-30] MEDS: VASOPRESSIN 20 UNITS in NACL 0.9% 250 ML IV SCH (02:18)
[2019-07-30] MEDS: fentaNYL 1 MG in NACL 0.9% 80 ML IV PRN ×3 (03:49→18:42)
[2019-07-30] MEDS: ALBUTEROL SULFATE/IPRATROPIU 3 ML SOL IH PRN (04:05)
[2019-07-30] MEDS: METOCLOPRAMIDE 10 MG/2 ML INJ VIAL IVP SCH (04:08)
[2019-07-30] MEDS: PIPERACILLIN/TAZOBACTAM 3.375 GM in DEXTROSE 5% 50 ML IV SCH ×3 (04:08→20:34)
--- NOTE | 2019-07-30 06:00 | NUR ---
G-TUBE WAS OUT. FOUND DEFLATED BUT INTACT. NO DISTRESS OBSERVED. VITALS WITHIN NORMAL LIMITS. WILL CONTINUE TO MONITOR PATIENT.
--- NOTE | 2019-07-30 06:35 | NUR ---
REC'D PT ON CARESCAPE VENT SETTINGS PC 30 RR 20 PEEP 5 ITIME 0.9 FIO3 28% ALARMS ON AND AUDIBLE AND AMBU BAG AT SIDE OF VENT AND VENT IS PLUGGED INTO RED OUTLET, I\L TX GIVEN WITH ALBUTEROL 2.5MG AND ATROVETNT 9.5MG WITH NO ADVERSE REACTION POST TX B\S ARE WHEEZING BILATERALLY, SXN PT SMALL AMT OF WHITE SECRETIONS, PT IS ORALLY INTUBATED WITH 7.5 ETT SECURED WITH ANCHOR FAST AT 22CM PT IS RESTING, RT EDMUND INCREASED FIO2 TO 30% DUE TO PT DESAT
[2019-07-30 06:36] LABS: HEMATOCRIT 32.2 % (36-52); HEMOGLOBIN 10.5 g/dL (12.0-18.0); MEAN CORPUSCULAR HEMOGLOBIN 29 pg (27-31); MEAN CORPUSCULAR HGB CONC 33 g/dL (33-37); MEAN CORPUSCULAR VOLUME 88.2 fL (80-94); PLATELET COUNT (AUTO) 146 K/uL (140-450); RED BLOOD CELL COUNT(AUTO) 3.65 MIL/uL (4.20-6.10); RED CELL DISTRIBUTION WIDTH 14.5 % (11.6-13.7); WHITE BLOOD COUNT (AUTO) 20.8 K/uL (4.8-10.8)
[2019-07-30 06:53] LABS: ALBUMIN 1.3 g/dL (3.4-5.0); ANION GAP 7.3 (8-16); CARBON DIOXIDE 28.5 mmol/L (21-32); CREATININE 0.8 mg/dL (0.6-1.3); MAGNESIUM 2.3 mg/dL (1.8-2.4); PHOSPHORUS 2.2 mg/dL (2.5-4.9); POTASSIUM 3.8 mmol/L (3.5-5.1); TOTAL BILIRUBIN 3.1 mg/dL (0.0-1.0)
--- NOTE | 2019-07-30 08:15 | NUR ---
DR Joaquina MATHEW CALLED TO INFORM OF NEED FOR CONSENT SIGNATURE FOR CT GUIDED PARACENTHESIS AND BIOPSY BY INTERVENTIONAL RADIOLOGY TODAY AT NOON.
[2019-07-30 08:27] LABS: EOSINOPHILS % (MANUAL) 3 % (0-4); LYMPHOCYTES % (MANUAL) 7 % (20-46); MONOCYTES % (MANUAL) 10 % (5-12)
[2019-07-30] MEDS: PANTOPRAZOLE 40 MG INJ VIAL IVP SCH (08:52)
[2019-07-30] MEDS: AMIODARONE 150 MG in DEXTROSE 5% 100 ML IV SCH ×2 (08:54→20:52)
[2019-07-30] MEDS: ASCORBIC ACID 500 MG TAB GT SCH (09:00)
[2019-07-30] MEDS: POLYETHYLENE GLYCOL 17 GM/PKT GT SCH ×3 (09:00→16:15)
[2019-07-30] MEDS: CLINICAL MONITORING MC SCH (09:00)
[2019-07-30] MEDS: VALPROIC ACID 250 MG/5 ML UDC GT SCH (09:00)
[2019-07-30] MEDS: SENNA 8.6 MG TAB GT SCH ×3 (09:00→16:15)
[2019-07-30] MEDS: MIDAZOLAM MDV 50 MG in NACL 0.9% 40 ML IV PRN (09:05)
[2019-07-30] MEDS: INSULIN LISPRO SLIDING SCALE 100 UNITS/ML VIAL SUBQ PRN ×4 (09:38→23:57)
[2019-07-30] MEDS: BLOOD GLUCOSE MONITORING 1 DEV DEV MC SCH ×4 (09:38→23:52)
[2019-07-30] MEDS ORDERED: fentaNYL 0.05 MG/ML VIAL ONE (09:46)
[2019-07-30] MEDS ORDERED: MIDAZOLAM 2 MG/2 ML VIAL ONE (09:46)
--- NOTE | 2019-07-30 10:04 | NUR ---
[facility] SHRUTHI ZIMMERMAN CALLED BACK, OK TO PERFORM PROCEDURE IF MEDICALLY NEEDED, HAVE 2 DOCTORS TO SIGN CONSENT, AND DOCUMENT NECESSITY.
[2019-07-30] MEDS: VALPROATE SODIUM 1,000 MG in NACL 0.9% 100 ML IV SCH ×2 (10:29→20:53)
[2019-07-30] MEDS ORDERED: SODIUM PHOSPHATE 15 MMOLE in NACL 0.9% 250 ML IV ONE (11:30)
--- NOTE | 2019-07-30 11:30 | NUR ---
PT TAKEN TO RADIOLOGY FOR CT GUIDED ASPIRATION OF ABD FLUID ACCOMPANIED BY RN OLE, AND RT ADRIEL.
[2019-07-30] MEDS ORDERED: SODIUM PHOSPHATE 15 MMOLE in NACL 0.9% 250 ML IV SCH (12:00)
[2019-07-30] MEDS: ALBUTEROL SULFATE/IPRATROPIU 3 ML SOL IH SCH ×2 (13:14→19:26)
--- NOTE | 2019-07-30 13:30 | NUR ---
PT RETURNED BACK FROM PROCEDURE
[2019-07-30] MEDS ORDERED: POTASSIUM CHLORIDE 20% 40 MEQ/15 ML UDC GT ONE (13:55)
--- NOTE | 2019-07-30 14:00 | NUR ---
DR Sophia HERRERA AT BEDSIDE
--- NOTE | 2019-07-30 14:20 | NUR ---
07/30/19 RD FOLLOW UP COMPLETED PLEASE REFER TO NUTRITION ASSESSMENT UNDER CARE ACTIVITY FOR ESTIMATED NUTRITIONAL NEEDS. 1. CONTINUE TPN D10%, AA 4.25% @ 80 ML/HR AND GRADUALLY INCREASE MEDICALLY APPROPRIATE 2. IF/WHEN PATIENT IS MEDICALLY CLEARED TO RE-START G-TUBE FEEDINGS, CONSIDER VITAL 1.2 @ 70 ML/HR X 24 HR. START AT 25 ML/HR AND ADVANCE BY 25 ML/HR Q4H -THIS WILL PROVIDE 2016 KCAL AND 126 GM OF PROTEIN WHICH MEETS 100% OF ESTIMATED NEEDS 3. RECOMMEND FREE WATER FLUSH [address] TO FOLLOW-UP 2-3 DAYS, HIGH RISK OCTAVIA SALMERON RD
--- NOTE | 2019-07-30 14:24 | NUR ---
OH AT BEDSIDE
[2019-07-30] MEDS ORDERED: ALBUMIN HUMAN 25% 100 ML IV SCH (15:00)
[2019-07-30] MEDS ORDERED: MINERAL OIL 135 ML ENEM RC SCH (15:00)
[2019-07-30] MEDS ORDERED: NEOSTIGMINE 1:1000 10 MG/10 ML VIAL IV SCH (15:30)
[2019-07-30 16:11] LABS: CREATININE,URINE RANDOM 54 mg/dL (30-125); URINE SODIUM, RANDOM 12 mmol/l (40-220)
[2019-07-30] MEDS: FUROSEMIDE 20 MG/2 ML VIAL IVP SCH (16:17)
[2019-07-30] MEDS: ERYTHROMYCIN ETHYLSUCCINATE SUSP 200 MG/5 ML UDC NG SCH ×2 (16:19→20:48)
[2019-07-30] MEDS ORDERED: Z-GUARD PASTE TP PRN (17:30)
--- NOTE | 2019-07-30 17:58 | NUR ---
EXTRA LARGE LARGE BM, ENEMA GIVEN, THOMPSON CARE DONE, PERICARE DONE, BED BATH GIVEN LINEN AND GOWN CHANGED.
--- NOTE | 2019-07-30 19:00 | NUR ---
REPORT RECEIVED FROM DAY SHIFT NURSE. PT STABLE. HAD A LARGE BM EARLIER. NO G-TUBE IN PLACE. NGT INTACT TO INTERMITTENT SUCTION. THOMPSON CATHETER IN PLACE AND DRAINING TO GRAVITY. AC/PC FIO2 30%, PC 30, RR 20, PEEP 5. ORAL MUCOSA PINK AND MOIST. RESPIRATION EVEN AND EQUAL CHEST RISE/FALL. VITAL SIGNS STABLE. NO SIGNS OF DISTRESS OBSERVED AT THIS TIME. SKIN WARM, DRY AN INTACT. CLEAR LUNG SOUNDS ON THE UPPER RIGHT AND LEFT AND DIMINISHED ON THE BASES. ABDOMEN DISTENDED, ROUND AND FIRM. WILL CONTINUE TO MONITOR. Addendum: 07/30/19 at 2329 by Mohan Irving RN FIO2 35%
[2019-07-30] MEDS: MULTIVITAMIN IV SCH ×3 (20:23)
[2019-07-30] MEDS: AMINO ACIDS 8.5% IV SCH ×3 (20:23)
[2019-07-30] MEDS: DEXTROSE IV SCH ×3 (20:23)
[2019-07-30] MEDS: BISACODYL 10 MG SUPP RC SCH (20:41)
[2019-07-30] MEDS: QUEtiapine FUMARATE 100 MG TAB GT SCH (21:04)
[2019-07-30] MEDS ORDERED: CRUSHER, PILL MC ONE (21:05)
--- NOTE | 2019-07-30 21:38 | NUR ---
INCREASED FIO2 TO 40%. SATS 88%
--- NOTE | 2019-07-30 22:55 | NUR ---
RESPIRATORY AT BEDSIDE
--- NOTE | 2019-07-30 23:24 | NUR ---
[id number] jason for vent changes. pc 35 and itime 0.90 increase peep 8cm rr 20 keep sats greater than 92%
[2019-07-31] VITALS (97 sets, daily range): BP systolic 78–164; BP diastolic 36–90
[2019-07-31] MEDS: fentaNYL 1 MG in NACL 0.9% 80 ML IV PRN ×4 (00:47→20:28)
[2019-07-31] MEDS: ALBUTEROL SULFATE/IPRATROPIU 3 ML SOL IH SCH ×4 (01:01→19:22)
--- NOTE | 2019-07-31 04:00 | NUR ---
PT STABLE AT THIS TIME. TURNED AND REPOSITIONED. WILL CONTINUE TO MONITOR.
[2019-07-31] MEDS: PIPERACILLIN/TAZOBACTAM 3.375 GM in DEXTROSE 5% 50 ML IV SCH ×3 (04:01→20:31)
[2019-07-31] MEDS ORDERED: VASOPRESSIN 20 UNITS/ML VIAL ONE (05:26)
--- NOTE | 2019-07-31 05:34 | NUR ---
0525 INCREASED FIO2 TO 50% SATS 88%
[2019-07-31] MEDS: MIDAZOLAM MDV 50 MG in NACL 0.9% 40 ML IV PRN ×2 (06:01→20:27)
[2019-07-31] MEDS: INSULIN LISPRO SLIDING SCALE 100 UNITS/ML VIAL SUBQ PRN ×4 (06:06→23:16)
[2019-07-31] MEDS: VASOPRESSIN 20 UNITS in NACL 0.9% 250 ML IV SCH ×2 (06:07→20:09)
[2019-07-31] MEDS: BLOOD GLUCOSE MONITORING 1 DEV DEV MC SCH ×4 (06:08→23:14)
[2019-07-31 06:30] LABS: ANION GAP 11.6 (8-16); CREATININE 0.8 mg/dL (0.6-1.3); POTASSIUM 3.6 mmol/L (3.5-5.1)
[2019-07-31 06:34] LABS: MAGNESIUM 1.8 mg/dL (1.8-2.4); PHOSPHORUS 2.5 mg/dL (2.5-4.9)
--- NOTE | 2019-07-31 07:19 | NUR ---
REPORT GIVEN TO DAYSHIFT RN FOR CONTINUITY OF CARE.
--- NOTE | 2019-07-31 07:29 | NUR ---
BEDSIDE REPORT RECEIVED FROM OPTICAL SYSTEMS ENGINEER NURSE, PT SEDATED WITH RASS -2 ON VERSED AND FENTANYL, ETT TO VENT, ACPC, FIO2 50%, PIP 35, PEEP 8, RR 20, VITALS STABLE ON MONITOR, HR 80, RR20, O2SAT 92%, BP 95/60, VISIBLE CHEST RISE AND FALL, SKIN WARM DRY COLOR JAUNDICE, SEVER EDEMA TO ALL EXT AND SCROTUM AND PENIS, NGT IN PLACE TO LOW INT SUCTION, ABD LARGE DISTENDED, FIRM, DECREASED BS ALL 4Q, GT SITE WITHOUT GT VINNIE, LEFT UPPER Q WITH DRESSING COVERED WITH TEGADERM CHANGED, THOMPSON IN PLACE, DRAINING DARK BRUNO URINE TO GRAVITY, CENTRAL LINE TRIPLE LUMEN IN PLACE AT RIGHT GROIN DRESSING CDI, POC REVIEWED, ALL SAFETY MEASURES IN PLACE, WILL CONTINUE TO MONITOR. FENTANYL AT 1.5MCG/MIN (20.4ML/HR), VERSED 3MCG/HR (3ML/HR), TPN 80ML/HR, DRY WT 102KG.
[2019-07-31 07:31] LABS: HEMATOCRIT 27.4 % (36-52); MEAN CORPUSCULAR HEMOGLOBIN 29 pg (27-31); MEAN CORPUSCULAR HGB CONC 33 g/dL (33-37); MEAN CORPUSCULAR VOLUME 88.6 fL (80-94); PLATELET COUNT (AUTO) 136 K/uL (140-450); RED BLOOD CELL COUNT(AUTO) 3.09 MIL/uL (4.20-6.10); RED CELL DISTRIBUTION WIDTH 14.8 % (11.6-13.7)
[2019-07-31 07:53] LABS: WHITE BLOOD COUNT (AUTO) 25.9 K/uL (4.8-10.8)
[2019-07-31 07:54] LABS: EOSINOPHILS % (MANUAL) 1 % (0-4); LYMPHOCYTES % (MANUAL) 9 % (20-46); MONOCYTES % (MANUAL) 16 % (5-12)
[2019-07-31 07:55] LABS: METAMYELOCYTES % 3 % (0-0)
[2019-07-31] MEDS: PANTOPRAZOLE 40 MG INJ VIAL IVP SCH (08:32)
[2019-07-31] MEDS: SENNA 8.6 MG TAB GT SCH ×2 (08:32→13:34)
[2019-07-31] MEDS: ASCORBIC ACID 500 MG TAB GT SCH (08:32)
[2019-07-31] MEDS: FUROSEMIDE 20 MG/2 ML VIAL IVP SCH (08:32)
[2019-07-31] MEDS: POLYETHYLENE GLYCOL 17 GM/PKT GT SCH ×2 (08:32→13:33)
[2019-07-31] MEDS: VALPROATE SODIUM 1,000 MG in NACL 0.9% 100 ML IV SCH ×2 (08:33→20:31)
[2019-07-31] MEDS: AMIODARONE 150 MG in DEXTROSE 5% 100 ML IV SCH ×2 (08:34→20:30)
[2019-07-31] MEDS: ERYTHROMYCIN ETHYLSUCCINATE SUSP 200 MG/5 ML UDC NG SCH ×2 (08:37→13:35)
[2019-07-31] MEDS: CLINICAL MONITORING MC SCH (08:37)
--- NOTE | 2019-07-31 09:30 | NUR ---
PT CONTINUES TO REACH UP TO ETT WITH RIGHT HAND, PINCHES WITH FINGERS, INCREASED VERSED TO 5MCG/HR.
--- NOTE | 2019-07-31 10:00 | NUR ---
PT NOW AT RASS -2, WILL CONTINUE TO MONITOR
--- NOTE | 2019-07-31 11:15 | NUR ---
DR CECIL DELGADO PAGED FOR CLARIFICATION OF RECTAL TUBE ORDER.
--- NOTE | 2019-07-31 12:01 | NUR ---
PICC LINE NURSE STEFAN AT BEDSIDE.
--- NOTE | 2019-07-31 12:01 | NUR ---
DR DELGADO AT BEDSIDE, OK TO USE FLEXI SEAL RECTAL TUBE.
[2019-07-31] MEDS ORDERED: FUROSEMIDE 40 MG/4 ML VIAL IVP SCH ×2 (13:00→14:00)
[2019-07-31] MEDS ORDERED: ALBUMIN HUMAN 25% 50 ML IV SCH (13:30)
[2019-07-31] MEDS ORDERED: SEVOFLURANE 250 ML BTL INH ONE (15:08)
[2019-07-31] MEDS ORDERED: ROCURONIUM 50 MG/5 ML VIAL IV ONE (15:08)
[2019-07-31] MEDS ORDERED: fentaNYL 0.05 MG/ML VIAL ONE ×2 (15:08→20:08)
--- NOTE | 2019-07-31 15:37 | NUR ---
PT TAKEN TO OR FOR EXPLORATORY LAP WITH DR CECIL DELGADO, ACCOMPANIED BY RN ALYCIA YU MARY AND RT EMMY.
--- NOTE | 2019-07-31 18:05 | NUR ---
PT RETURNED FROM PACU S/P EXP LAP, PT NOW WITH VERTICAL SUGICAL WOUND OPEN COVERED WITH SURGICAL TOWL AND CLEAR DRESSING, [place] DRAIN X2 RIGHT ABD 45ML SANGUINOUS DRAINAGE, AND LEFT ABD 75ML SANGUINOUS DRAINAGE, THOMPSON CATH ON RIGHT ABD WHICH IS A GASTRIC TUBE CONNECTED BAG TO DRAIN TO GRAVITY, PT NOW WITH R RADIAL ART LINE, ZERO'D AND ON MONITOR, R PICC LINE IN PLACE, R FEMORAL CENTRAL LINE IN PLACE, FENTANYL AT 2MCG/KG/HR, VERSED 5MCG/HR, VASOPRESSIN 0.003U/MIN, TPN AT 80ML. THOMPSON IN PLACE, RECTAL BAG IN PLACE, PT PLACED BACK ON MONITOR, PER DR Tre DELGADO, PT SHOULD BE SEDATED AND PARALYZED TO KEEP ABD CONTENT IN, DR GONZALEZ PAGED FOR DR DELGADO. DR DELGADO AND DR GONZALEZ ON THE PHONE TO DISCUSS PLAN OF CARE. PER DR DELGADO, PT TO BE TAKEN BACK TO OR IN NEXT FEW DAYS TO CLOSE THE ABD.
--- NOTE | 2019-07-31 18:38 | NUR ---
DR GONZALEZ AT BEDSIDE FOR EVAL, PER DR GONZALEZ KEEP FENTANYL AND VERSED FOR SEDATION WITH [employer] RASS -4, HE WILL NOT ORDER PARALYTICS AT THIS TIME, VERBAL ORDER FOR LASIX 40MG X1 RECEIVED.
--- NOTE | 2019-07-31 19:00 | NUR ---
PT SEDATED, RESPONDS TO LIGHT PAIN, NON VERBAL, NO SIGNS OF ACUTE DISTRESS, WITH ETT TO VENT, FIO2 50%, ORAL AND TRACH CARE WITH SUCTION RENDERED. SKIN IS WARM AND DRY, NOTED SURGICAL DRESSING ON ABDOMEN, INTACT AND DRY, WITH 2 [place] DRAIN ON RIGHT AND LEFT QUADRANT ON THE ABDOMEN, BOTHR DRAINING SANGUINEOUS FLUID 100CC AND 80CC RESPECTIVELY. GTUBE CONNECTED TO DRAIN BY GRAVITY, NG TUBE NOTED ON LEFT NARES LOW INTERMITTENT SUCTION. THOMPSON CATHETER INTACT WITH CLEAR YELLOW URINE. RECTAL TUBE IN PLACE WITH LOOSE STOOL AT 110CC. PT IS BEDBOUND, TURN AND REPOSITION Q2H, FLACC 0. MAINTAIN SAFETY PRECAUTIONS, ALL NEEDS ANTICIPATED, CALL LIGHT WITHIN REACH.
--- NOTE | 2019-07-31 19:50 | NUR ---
PHONE CALL TO DR DELGADO, SURGEON. CLARIFIED WITH MD REGARDING PT HAS NGT MEDS ERYTHROMYCIN; HE SAID TO DC THE SAID MEDICATION.HOLD LAXATIVE/SUPPOSITORIES FOR NOW AND CONTINUE HEPARIN SUBQ; DR DELGADO MADE AWARE THAT [place] DRAIN HAS BLOODY OUTPUT; MD SAID STILL OK TO GIVE HEPARIN.ALSO ASKED MD IF HE WANTS LAB DRAW, HE SAID NO.NICOLE RN AWARE
--- NOTE | 2019-07-31 20:00 | NUR ---
WAS SEEN BY PICC LINE NURSE STEFAN, AND PLACED RIGHT UPPER ARM MID LINE CATHETER, PROCEDURE DONE WITH ULTRASOUND. INTACT AND PATENT. CONTINUE TO MONITOR. Addendum: 08/01/19 at 0136 by Moisés Quinn RN ERROR, WRONG PT.
[2019-07-31] MEDS ORDERED: MIDAZOLAM MDV 50 MG/10 ML VIAL IV ONE (20:09)
[2019-07-31] MEDS: MULTIVITAMIN IV SCH ×3 (20:12)
[2019-07-31] MEDS: AMINO ACIDS 8.5% IV SCH ×3 (20:12)
[2019-07-31] MEDS: DEXTROSE IV SCH ×3 (20:12)
[2019-07-31] MEDS ORDERED: FUROSEMIDE 40 MG/4 ML VIAL IVP ONE ×2 (20:25→21:35)
[2019-07-31] MEDS: BISACODYL 10 MG SUPP RC SCH (20:32)
--- NOTE | 2019-07-31 21:17 | NUR ---
LOWERED FIO2 TO 40% SATS 100%
--- NOTE | 2019-07-31 23:45 | NUR ---
NOTED PT'S BP 84/39 HR 109, NOTIFIED DR. GONZALEZ, RECEIVED ORDER TO START ON LEVOPHED DRIP ORDERED. WILL CONTINUE TO MONITOR.
[2019-07-31] MEDS ORDERED: NOREPINEPHRINE 4 MG/4 ML VIAL IV ONE (23:55)
[2019-08-01] VITALS (105 sets, daily range): BP systolic 77–141; BP diastolic 37–74
[2019-08-01] MEDS: NOREPINEPHRINE 16 MG in DEXTROSE 5% 250 ML IV PRN ×2 (00:10→14:11)
[2019-08-01] MEDS: ALBUTEROL SULFATE/IPRATROPIU 3 ML SOL IH SCH ×4 (01:13→19:00)
[2019-08-01] MEDS: fentaNYL 1 MG in NACL 0.9% 80 ML IV PRN ×4 (02:08→22:25)
--- NOTE | 2019-08-01 03:18 | NUR ---
NOTED PT'S ABDOMINAL DRESSING LEAKING, REINFORCED DRESSING, CHARGE NURSE AND PRACTICE REPRESENTATIVE AWARE.
[2019-08-01] MEDS: PIPERACILLIN/TAZOBACTAM 3.375 GM in DEXTROSE 5% 50 ML IV SCH ×3 (04:20→21:46)
[2019-08-01] MEDS: BLOOD GLUCOSE MONITORING 1 DEV DEV MC SCH ×4 (05:27→23:52)
[2019-08-01] MEDS: INSULIN LISPRO SLIDING SCALE 100 UNITS/ML VIAL SUBQ PRN ×3 (05:37→17:35)
[2019-08-01] MEDS ORDERED: VASOPRESSIN 20 UNITS/ML VIAL ONE (05:58)
[2019-08-01] MEDS: VASOPRESSIN 20 UNITS in NACL 0.9% 250 ML IV SCH ×2 (06:02→14:37)
[2019-08-01 06:14] LABS: ALBUMIN 0.9 g/dL (3.4-5.0); ANION GAP 17.3 (8-16); CARBON DIOXIDE 20.9 mmol/L (21-32); CREATININE 1.2 mg/dL (0.6-1.3); MAGNESIUM 1.5 mg/dL (1.8-2.4); PHOSPHORUS 3.2 mg/dL (2.5-4.9); POTASSIUM 3.2 mmol/L (3.5-5.1); TOTAL BILIRUBIN 2.8 mg/dL (0.0-1.0)
[2019-08-01 06:18] LABS: HEMATOCRIT 24.4 % (36-52); HEMOGLOBIN 7.9 g/dL (12.0-18.0); MEAN CORPUSCULAR HEMOGLOBIN 29 pg (27-31); MEAN CORPUSCULAR HGB CONC 33 g/dL (33-37); MEAN CORPUSCULAR VOLUME 87.8 fL (80-94); PLATELET COUNT (AUTO) 225 K/uL (140-450); RED BLOOD CELL COUNT(AUTO) 2.77 MIL/uL (4.20-6.10); RED CELL DISTRIBUTION WIDTH 14.9 % (11.6-13.7)
--- NOTE | 2019-08-01 07:22 | NUR ---
PT RESTING IN BED, NO SIGNS OF ACUTE DISTRESS, ENDORSED TO ONCOMING DAY SHIFT NURSE FOR CONTINUITY OF CARE.
[2019-08-01 07:25] LABS: WHITE BLOOD COUNT (AUTO) 44.9 K/uL (4.8-10.8)
--- NOTE | 2019-08-01 07:30 | NUR ---
RECEIVED BEDSIDE REPORT FROM AERIAL INSTALLER RN. PT IS SEDATED, RASS -4. TEMP 100.2. FLACC 0. RIGHT PUPIL SLUGGISH 3MM, LEFT PUPIL NON REACTIVE. ST WITH BBB ON MONITOR. S1 S2 HEARD. ETT TO VENT A/C PC FIO2 30%, PINSP 35, RR 18, PEEP 5. LUNGS SOUND CLEAR BILATERALLY, DIMINISHED AT BASES. NO SIGNS OF RESPIRATORY DISTRESS NOTED. NGT IN PLACE TO LEFT NARE, CONNECTED TO LOW INTERMITTENT SUCTION, PLACEMENT CONFIRMED. ABDOMEN ROUND, FIRM, DISTENDED, MID ABDOMINAL SURGICAL INCISION NOTED, DRESSING INTACT, MID ABDOMINAL THOMPSON CATHETER G-TUBE CONNECTED TO DRAINAGE BAG. [place] DRAINS IN PLACE TO LEFT AND RIGHT LOWER ABDOMEN, SANGUINEOUS DRAINAGE NOTED IN BOTH [place] DRAINS. CENTRAL LINE TLC TO RIGHT FEMORAL AND PICC LINE TO ZACH PATENT AND INTACT, PT IS RECEIVING FENTANYL DRIP AT 2 MCG/KG/HR (DRY WEIGHT 102 KG), VERSED DRIP AT 5 MG/HR, LEVOPHED DRIP AT 20 MCG/MIN, VASOPRESSIN DRIP AT 0.04 UNITS/MIN, TPN AT 80 ML/HR. ARTERIAL LINE IN PLACE TO RIGHT RADIAL, ZEROED. THOMPSON CATH IN PLACE DRAINING BRUNO URINE TO GRAVITY. SKIN IS DRY AND WARM TO TOUCH. EDEMA TO BUE/BLE AND SCROTUM. HOB AT 30 DEGREES. BED IN LOWEST POSITION LOCKED. CALL LIGHT WITHIN REACH. NO SIGNS OF DISTRESS AT THIS TIME. WILL CONTINUE TO MONITOR.
[2019-08-01] MEDS: ASCORBIC ACID 500 MG TAB GT SCH (08:20)
[2019-08-01] MEDS ORDERED: MAG SULF 2000 MG/WATER PREMIX 50 ML IV SCH ×2 (08:35→09:00)
[2019-08-01] MEDS: CLINICAL MONITORING MC SCH (08:39)
[2019-08-01] MEDS: VALPROATE SODIUM 1,000 MG in NACL 0.9% 100 ML IV SCH ×2 (08:39→21:46)
[2019-08-01] MEDS: PANTOPRAZOLE 40 MG INJ VIAL IVP SCH (08:39)
[2019-08-01 09:06] LABS: BLASTS, MANUAL % 3 % (0-0); EOSINOPHILS % (MANUAL) 2 % (0-4); LYMPHOCYTES % (MANUAL) 8 % (20-46); METAMYELOCYTES % 2 % (0-0); MONOCYTES % (MANUAL) 11 % (5-12); MYELOCYTES % 2 % (0-0)
[2019-08-01] MEDS: AMIODARONE 150 MG in DEXTROSE 5% 100 ML IV SCH ×2 (09:15→20:30)
[2019-08-01] MEDS: MIDAZOLAM MDV 50 MG in NACL 0.9% 40 ML IV PRN ×2 (09:17→22:25)
--- NOTE | 2019-08-01 09:30 | NUR ---
MEDICATIONS ADMINISTERED ORDERED. PT TOLERATED WELL.
--- NOTE | 2019-08-01 09:47 | NUR ---
SCREEN FOR LOW COLIN SCALE AT RISK, CONTINUE TO FOLLOW PRESSURE ULCER PREVENTION INTERVENTIONS. S/P DECOMPRESSIVE LAPAROTOMY, DRAINAGE OF RETROPERITONEAL ABSCESS REPLACEMENT OF G TUBE, MID ABDOMINAL SURGICAL WOUND LEFT OPEN WITH SURGICAL DRESSING IN PLACE, G-TUBE AND [place] DRAINS SECURED, EDGE OF DRESSING SEEPING OUT OF SANGUINEOUS DRAINAGE, NO ODOR. SCROTAL EDEMA WITH SKIN INTACT. F/C AND RECTAL TUBE IN PLACE. RECOMMENDATIONS: -APPLY HYDROGUARD TO SCROTAL AREA BID YARD GENERAL CAR SUPERVISOR, MAY USE ROLLED PILLOW CASE TO ELEVATED SCROTAL AREA. -TURN AND REPOSITION PATIENT Q 2H -ASSESS AND MONITOR SKIN CONDITION DURING POSITION CHANGE -OFFLOAD BILATERAL HEELS BY PLACING PILLOWS UNDER CALVES AT ALL TIMES, UNLESS OTHERWISE CONTRAINDICATED -PRESSURE REDISTRIBUTION BY PLACING PILLOWS AND OFFLOADING SACRALCOCCYX -KEEP SKIN CLEAN AND DRY AT ALL TIMES.
[2019-08-01] MEDS ORDERED: KETOROLAC 30 MG/ML VIAL IVP PRN (09:50)
[2019-08-01] MEDS ORDERED: KCL 20 MEQ/WATER INJ PREMIX 200 ML IV SCH ×2 (11:00→16:00)
--- NOTE | 2019-08-01 11:20 | NUR ---
DR. MENG IN THE UNIT, SEEN PT AT BEDSIDE, CHECKED ABDOMINAL INCISION, AWARE OF THE LEAKAGE FROM INCISION SITE AND [place] DRAINS. PER DR. MENG, LEAKAGE IS OKAY, HE WILL CLOSE THE INCISION LATER THIS WEEK.
--- NOTE | 2019-08-01 11:38 | NUR ---
PT SEEN AND EXAMINED BY DR. GONZALEZ AT BEDSIDE, CHANGED VENT SETTING. WILL FOLLOW UP ON ANY NEW ORDERS.
--- NOTE | 2019-08-01 11:45 | NUR ---
PT SEEN BY DR. DELGADO, EXAMINED INCISION AT BEDSIDE. PER DR. DELGADO, OK TO GIVE TYLENOL VIA NGT FOR FEVER ABOVE 100.4F.
--- NOTE | 2019-08-01 11:49 | NUR ---
VENTILATOR SETTINGS CHANGED PER DR. GOZNALEZ REQUEST. SETTINGS ARE VC/AC RR 20/ VT 450/ PEEP 8/ FIO2 30%.
[2019-08-01] MEDS: ACETAMINOPHEN 650 MG/20.3 ML UDC GT PRN (12:19)
[2019-08-01] MEDS: HYDRAGUARD CREAM TP SCH (12:19)
[2019-08-01] MEDS: FUROSEMIDE 40 MG/4 ML VIAL IVP SCH ×2 (12:19→16:10)
--- NOTE | 2019-08-01 12:49 | NUR ---
DR. PRIYANKA Kunz. IN TO SEE PT. UPDATES GIVEN ON PT'S CONDITION. WILL FOLLOW UP ON ORDERS.
[2019-08-01] MEDS ORDERED: metroNIDAZOLE 500 MG/NS PREMIX 100 ML IV SCH (13:00)
--- NOTE | 2019-08-01 14:05 | NUR ---
RECEIVED CALL FROM DONALD ALVARADO RN FROM [facility]. UPDATES GIVEN ON PT'S CONDITION.
--- NOTE | 2019-08-01 14:06 | NUR ---
08/01/19 RD FOLLOW UP COMPLETED PLEASE REFER TO NUTRITION ASSESSMENT UNDER CARE ACTIVITY FOR ESTIMATED NUTRITIONAL NEEDS. 1. CONTINUE TPN D10%, AA 4.25% @ 80 ML/HR AND GRADUALLY INCREASE MEDICALLY APPROPRIATE -CURRENT TPN PROVIDES 979 KCAL AND 81 GM OF PROTEIN/DAY WHICH IS 53% OF KCAL NEEDS AND 73% OF PROTEIN NEEDS. 2. IF/WHEN PATIENT IS MEDICALLY CLEARED TO RE-START G-TUBE FEEDINGS, CONSIDER VITAL 1.2 @ 70 ML/HR X 24 HR. START AT 25 ML/HR AND ADVANCE BY 25 ML/HR Q4H -THIS WILL PROVIDE 2016 KCAL AND 126 GM OF PROTEIN WHICH MEETS 100% OF ESTIMATED NEEDS 3. RECOMMEND FREE WATER FLUSH [address] TO FOLLOW-UP 2-3 DAYS, HIGH RISK OCTAVIA SALMERON RD
[2019-08-01] MEDS ORDERED: ALBUMIN HUMAN 25% 100 ML IV SCH (14:15)
[2019-08-01] MEDS ORDERED: KCL 20 MEQ/WATER INJ PREMIX 200 ML IV ONE (15:00)
--- NOTE | 2019-08-01 15:46 | NUR ---
TURNED AND REPOSITIONED, PLACED COOLING BLANKET, LINENS CHANGED. TEMP 99.9 AT THIS TIME. PT TOLERATED WELL.
--- NOTE | 2019-08-01 18:00 | NUR ---
TEMP 99.3, COOLING BLANKET IN PLACE, FLACC 0, RASS -4, TURNED AND REPOSITIONED, PRESSURE AREAS OFF LOADED.
--- NOTE | 2019-08-01 19:12 | NUR ---
received pt from day shift on document settings. vent plugged into red outlet. bmv at bedside. alarms audible and working. ett secured and intact. no hhn tx was given. b/s were clear. good aeration noted.pt is in no distress. will cont to monitor
--- NOTE | 2019-08-01 19:25 | NUR ---
REPORT GIVEN TO ELECTRICIAN STATION ASSISTANT RN FOR CONTINUITY OF CARE. NO S/SX OF DISTRESS NOTED AT THIS TIME.
--- NOTE | 2019-08-01 19:26 | NUR ---
REPORT RECEIVED FROM AM NURSE AT BEDSIDE. PT IN STABLE CONDITION. AAOX0. PT IS SEDATED ON VERSED AND FENTANYL. RASS-4. DRY WEIGHT 102KG. FLACC 0. NO SOB ON ETT TO VENT. ETT SIZE 7.5 TAPED@24CM. VENT SETTINGS FIO2@30%, VT 450, RR 20, PEEP 8. AFEBRILE@97.8. PT IS BEDBOUND DUE TO HX OF CVA. PT HAS THOMPSON. PT HAS RECTAL TUBE AND THERMOMETER IN PLACE. PT HAS NG TUBE TO LEFT NARES AND SUCTION. PT HAS ARTERIAL LINE IN PLACE. GTUBE IS MALFUNCTIONED AND NOT BEING USED. PT HAS [place] DRAINS BILATERAL LOWER ABDOMEN BOTH DRAINING WELL. IV SITE R UA PICC DOUBLE LUMEN FIRST LINE RUNNING FENTANYL AND VERSED PATENT AND INTACT. RUNNING TPN ON THE SECOND LINE PATENT AND INTACT. FEMORAL CENTRAL LINE TRIPLE LUMEN RUNNING LEVOPHED AND VASOPRESSIN PATENT AND INTACT. SECOND LINE TKO AND IVPB. THIRD LINE RUNNING KCL PATENT AND INTACT. SKIN WARM, DRY, AND NOT INTACT DUE TO SURGICAL INCISION ON THE ABD AND ABDOMINAL ABSCESS. BED LOCKED IN LOW POSITION. CALL HORN WITHIN REACH. SAFETY PRECAUTION IN PLACE. ALL NEEDS MET AT THIS TIME.
[2019-08-01] MEDS: AMINO ACIDS 8.5% IV SCH ×3 (19:51)
[2019-08-01] MEDS: DEXTROSE IV SCH ×3 (19:51)
[2019-08-01] MEDS: MULTIVITAMIN IV SCH ×3 (19:51)
--- NOTE | 2019-08-01 19:51 | NUR ---
TPN HUNG AND RUNNING.
--- NOTE | 2019-08-01 20:00 | NUR ---
ORAL CARE DONE.
[2019-08-01] MEDS ORDERED: VANCOMYCIN PER PHARMACY MC PRN (20:10)
--- NOTE | 2019-08-01 20:30 | NUR ---
CORDARONE HUNG AND RUNNING.
[2019-08-01 20:34] LABS: ANION GAP 15.1 (8-16); CARBON DIOXIDE 23.3 mmol/L (21-32); CREATININE 1.3 mg/dL (0.6-1.3); POTASSIUM 3.4 mmol/L (3.5-5.1)
[2019-08-01] MEDS ORDERED: VANCOMYCIN 2,000 MG in NACL 0.9% 500 ML IV ONE (20:35)
[2019-08-01] MEDS: BISACODYL 10 MG SUPP RC SCH (21:00)
--- NOTE | 2019-08-01 21:46 | NUR ---
ZOSYN HUNG AND RUNNING. DEPACON HUNG AND RUNNING. HEPARIN HELD DUE TO OPEN SURGICAL INCISION. NOTIFIED. DULCOLAX HELD DUE TO DIARRHEA.
--- NOTE | 2019-08-01 22:25 | NUR ---
NEW BAG VERSED AND FENTANYL HUNG AND RUNNING.
--- NOTE | 2019-08-01 22:25 | NUR ---
FENTANYL INCREASED FROM 1MCG/KG/HR TO 1.5MCG/KG/HR DUE TO RASS-3.
--- NOTE | 2019-08-01 23:52 | NUR ---
BS 289. 6 UNITS OF OF HUMALOG GIVEN.
[2019-08-02] VITALS (102 sets, daily range): BP systolic 90–159; BP diastolic 36–81
--- NOTE | 2019-08-02 | NUR ---
VASOPRESSIN OLD BAG COMPLETE. NEW BAG RUNNING. Addendum: 08/02/19 at 0126 by Jorge Castro RN ORAL CARE DONE.
[2019-08-02] MEDS ORDERED: VANCOMYCIN 1,000 MG VIAL ONE (00:07)
--- NOTE | 2019-08-02 00:30 | NUR ---
TITRATED LEVO FROM 20MCG/MIN TO 18MCG/MIN DUE TO STABILIZING BP WNL.
[2019-08-02] MEDS: HYDRAGUARD CREAM TP SCH ×2 (00:35→12:04)
[2019-08-02] MEDS: ALBUTEROL SULFATE/IPRATROPIU 3 ML SOL IH SCH ×4 (00:46→18:51)
--- NOTE | 2019-08-02 02:23 | NUR ---
LEVO DECREASED FROM 18MCG/MIN TO 16MCG/MIN DUE TO STABILIZING BP WNL.
--- NOTE | 2019-08-02 03:25 | NUR ---
PT REMAINS ON DOCUMENTED SETTINGS. NO CHANGES MADE. PT IN NO DISTRESS. WILL CONT TO MONITOR
--- NOTE | 2019-08-02 04:00 | NUR ---
ORAL CARE DONE. THOMPSON CARE DONE. PT LINENS CHANGED. TURNED AND MADE COMFORTABLE.
--- NOTE | 2019-08-02 04:10 | NUR ---
FENTANYL INCREASED FROM 1.5MCG/KG/HR TO 2MCG/KG/HR DUE TO RASS-3.
--- NOTE | 2019-08-02 04:15 | NUR ---
no changes made to vent. vent remains plugged into red outlet. bmv at bedside. alarms set and audible. ett secured and intact. pt is in no distress. will cont to monitor
--- NOTE | 2019-08-02 04:25 | NUR ---
VERSED INCREASED FROM 3MG/HR TO 4MG/HR DUE TO RASS-3.
--- NOTE | 2019-08-02 04:55 | NUR ---
TITRATION INCREASED FROM 4MG/HR TO 5MG/HR DUE TO RASS-3.
[2019-08-02] MEDS: BLOOD GLUCOSE MONITORING 1 DEV DEV MC SCH ×4 (05:19→23:21)
--- NOTE | 2019-08-02 05:19 | NUR ---
BS 273. 6 UNITS OF HUMALOG GIVEN. PT TOLERATED WELL.
[2019-08-02] MEDS: INSULIN LISPRO SLIDING SCALE 100 UNITS/ML VIAL SUBQ PRN ×5 (05:32→23:20)
[2019-08-02] MEDS: fentaNYL 1 MG in NACL 0.9% 80 ML IV PRN ×5 (05:36→23:34)
--- NOTE | 2019-08-02 05:36 | NUR ---
NEW BAG OF FENTANYL HUNG. 0ML WASTE.
[2019-08-02] MEDS: NOREPINEPHRINE 16 MG in DEXTROSE 5% 250 ML IV PRN (05:38)
--- NOTE | 2019-08-02 05:38 | NUR ---
NEW BAG LEVOPHED HUNG. PT TOLERATED WELL.
[2019-08-02 06:23] LABS: CREATININE 1.1 mg/dL (0.6-1.3)
[2019-08-02 06:32] LABS: MAGNESIUM 1.9 mg/dL (1.8-2.4); PHOSPHORUS 4.4 mg/dL (2.5-4.9)
[2019-08-02 06:35] LABS: MEAN CORPUSCULAR HEMOGLOBIN 28 pg (27-31); MEAN CORPUSCULAR HGB CONC 33 g/dL (33-37); MEAN CORPUSCULAR VOLUME 85.9 fL (80-94); PLATELET COUNT (AUTO) 193 K/uL (140-450); RED CELL DISTRIBUTION WIDTH 14.6 % (11.6-13.7)
[2019-08-02 06:40] LABS: WHITE BLOOD COUNT (AUTO) 34.5 K/uL (4.8-10.8)
--- NOTE | 2019-08-02 06:40 | NUR ---
CRITICAL LAB VALUE HGB 5.1 HCT 15.5. WBC 34.5. POTASSIUM 3.0. INA BERRY. AWAITING CALL BACK.
[2019-08-02 06:41] LABS: HEMATOCRIT 15.5 % (36-52); HEMOGLOBIN 5.1 g/dL (12.0-18.0)
--- NOTE | 2019-08-02 06:50 | NUR ---
CALLED BACK. ORDERED TO INFUSE 2 UNITS OF PRBCS THEN RECHECK H&H AFTER. GIVE 40 MEQ KRIDER. TORB.
[2019-08-02 06:57] LABS: LYMPHOCYTES % (MANUAL) 10 % (20-46)
[2019-08-02 06:58] LABS: METAMYELOCYTES % 8 % (0-0); MONOCYTES % (MANUAL) 8 % (5-12); MYELOCYTES % 2 % (0-0)
--- NOTE | 2019-08-02 07:15 | NUR ---
REPORT GIVEN TO AM NURSE AT BEDSIDE. PT IN STABLE CONDITION.
--- NOTE | 2019-08-02 07:30 | NUR ---
RECEIVED BEDSIDE REPORT FROM BIOSTATISTICS DIRECTOR RN. PT IS AFEBRILE, TEMP 98.6F, RASS -4, FLACC 0. RIGHT PUPIL SLUGGISH 3MM, LEFT PUPIL NON REACTIVE. SR WITH BBB ON MONITOR. S1 S2 HEARD. CAP REFILL < 3 SEC. PULSES PALPABLE TO ALL EXTREMITIES. EDEMA TO BUE/BLE AND SCROTUM NOTED. ETT TO VENT W/ SETTINGS: A/C VC FIO2 30%, VT 450, RR 20, PEEP 8. BREATHING EVEN AND UNLABORED. LUNGS SOUND CLEAR BILATERALLY, DIMINISHED AT BASES. NGT IN LEFT NARE CONNECTED TO LOW INTERMITTENT SUCTION, PLACEMENT CONFIRMED VIA AUSCULTATION. ABDOMEN ROUND, DISTENDED. PT HAS MID ABDOMINAL SURGICAL INCISION, TRANSPARENT DRESSING INTACT. G-TUBE CONNECTED TO GRAVITY DRAINAGE BAG. [place] DRAINS TO LEFT AND RIGHT LOWER ABDOMEN IN PLACE. PICC LINE TO ZACH PATENT AND INTACT, RUNNING FENTANYL DRIP AT 2 MCG/KG/HR (DRY WEIGHT 102 KG), VERSED DRIP AT 5 MG/HR, TPN AT 80 ML/HR. CENTRAL LINE TLC TO RIGHT FEMORAL ASYMPTOMATIC, PATENT AND INTACT RUNNING LEVOPHED DRIP AT 16 MCG/MIN, VASOPRESSIN DRIP AT 0.04 UNITS/MIN, NS TKO. ARTERIAL LINE INTACT TO RIGHT RADIAL. THOMPSON CATH IN PLACE DRAINING BRUNO URINE TO GRAVITY. SKIN IS DRY AND WARM TO TOUCH. HOB AT 30 DEGREES. BED IN LOWEST POSITION LOCKED. CALL LIGHT WITHIN REACH. NO SIGNS OF DISTRESS AT THIS TIME. WILL CONTINUE TO MONITOR.
--- NOTE | 2019-08-02 07:50 | NUR ---
DR. RAMON DELGADO IN TO SEE PT. WILL FOLLOW UP ON ORDERS.
[2019-08-02] MEDS ORDERED: ALBUMIN HUMAN 25% 50 ML IV SCH (08:00)
[2019-08-02] MEDS ORDERED: KCL 20 MEQ/WATER INJ PREMIX 200 ML IV SCH (08:00)
--- NOTE | 2019-08-02 08:00 | NUR ---
PER DR. PRIYANKA Silva, HE WILL COME AND SIGN BLOOD TRANSFUSION CONSENT FORM AROUND 9 AM.
[2019-08-02] MEDS: FUROSEMIDE 40 MG/4 ML VIAL IVP SCH ×3 (08:05→17:21)
[2019-08-02] MEDS: PANTOPRAZOLE 40 MG INJ VIAL IVP SCH (08:05)
[2019-08-02] MEDS: VASOPRESSIN 20 UNITS in NACL 0.9% 250 ML IV SCH ×4 (08:09→18:09)
[2019-08-02] MEDS: CLINICAL MONITORING MC SCH (08:24)
[2019-08-02] MEDS: ASCORBIC ACID 500 MG TAB GT SCH (08:24)
--- NOTE | 2019-08-02 08:39 | NUR ---
MEDICATIONS ADMINISTERED ORDERED. PT TOLERATED WELL.
[2019-08-02] MEDS: VALPROATE SODIUM 1,000 MG in NACL 0.9% 100 ML IV SCH ×2 (09:02→20:25)
[2019-08-02] MEDS: AMIODARONE 150 MG in DEXTROSE 5% 100 ML IV SCH ×2 (09:02→21:23)
--- NOTE | 2019-08-02 09:15 | NUR ---
DR. MATHEW IN THE UNIT, SEEN PT, SIGNED BLOOD TRANSFUSION CONSENT FORM.
--- NOTE | 2019-08-02 09:45 | NUR ---
BLOOD TRANSFUSION STARTED. PT IS AFEBRILE, VSS, NOT IN ANY DISTRESS AT THIS TIME. WILL CONTINUE TO MONITOR.
--- NOTE | 2019-08-02 11:10 | NUR ---
PT SEEN BY DR. CECIL DELGADO AT BEDSIDE. UPDATES GIVEN ON PT'S CONDITION. PER DR. DELGADO, HE PLANS TO DO SURGERY FOR CLOSURE OF ABDOMINAL INCISION TOMORROW MORNING AROUND 09:30 AM. CHARGE NURSE AWARE.
[2019-08-02] MEDS: MIDAZOLAM MDV 50 MG in NACL 0.9% 40 ML IV PRN ×2 (11:17→22:27)
--- NOTE | 2019-08-02 11:30 | NUR ---
DR. GONZALEZ IN TO SEE PT. UPDATED ON PT'S CONDITION. NO NEW ORDER RECEIVED AT THIS TIME.
--- NOTE | 2019-08-02 12:00 | NUR ---
FIRST UNIT OF BLOOD TRANSFUSION COMPLETED WITHOUT INTERRUPTION. PT TOLERATED WELL. AFEBRILE. VSS. NO S/SX OF ADVERSE REACTIONS NOTED.
[2019-08-02] MEDS: VANCOMYCIN 1,000 MG in NACL 0.9% 250 ML IV SCH (12:04)
--- NOTE | 2019-08-02 12:15 | NUR ---
SECOND UNIT OF BLOOD TRANSFUSION STARTED. WILL CONTINUE TO MONITOR.
--- NOTE | 2019-08-02 13:44 | NUR ---
PT SEEN BY DR. MENG AT BEDSIDE. NO NEW ORDER RECEIVED.
--- NOTE | 2019-08-02 14:30 | NUR ---
BLOOD TRANSFUSION SECOND UNIT COMPLETED. PT TOLERATED WELL.
[2019-08-02 14:51] LABS: HEMATOCRIT 21.1 % (36-52); HEMOGLOBIN 7.3 g/dL (12.0-18.0); MEAN CORPUSCULAR HEMOGLOBIN 30 pg (27-31); MEAN CORPUSCULAR HGB CONC 35 g/dL (33-37); MEAN CORPUSCULAR VOLUME 85.4 fL (80-94); PLATELET COUNT (AUTO) 164 K/uL (140-450); RED BLOOD CELL COUNT(AUTO) 2.47 MIL/uL (4.20-6.10); RED CELL DISTRIBUTION WIDTH 14.3 % (11.6-13.7)
[2019-08-02 14:58] LABS: WHITE BLOOD COUNT (AUTO) 30.5 K/uL (4.8-10.8)
[2019-08-02 15:55] LABS: EOSINOPHILS % (MANUAL) 2 % (0-4); LYMPHOCYTES % (MANUAL) 8 % (20-46); MONOCYTES % (MANUAL) 6 % (5-12)
[2019-08-02 15:56] LABS: METAMYELOCYTES % 4 % (0-0)
[2019-08-02] MEDS ORDERED: INSULIN NPH HUMAN ISOPHANE 100 UNIT/ML VIAL SUBQ SCH (16:15)
[2019-08-02] MEDS ORDERED: BLOOD GLUCOSE MONITORING 1 DEV DEV MC SCH (16:15)
--- NOTE | 2019-08-02 17:50 | NUR ---
DR. PRIYANKA Massey IN TO SEE PT, MADE AWARE THAT PT'S BEEN HAVING SINUS RHYTHM WITH BUNDLE BRANCH BLOCK AND OCCASIONAL PAC'S. NO NEW ORDER RECEIVED AT THIS TIME. WILL CONTINUE TO MONITOR.
[2019-08-02] MEDS: PIPERACILLIN/TAZOBACTAM 3.375 GM in DEXTROSE 5% 50 ML IV SCH ×2 (18:08→23:11)
--- NOTE | 2019-08-02 19:14 | NUR ---
REPORT GIVEN TO INTERACTIVE MARKETING STRATEGIST RN FOR CONTINUITY OF CARE. NO SIGNS OF DISTRESS NOTED AT THIS TIME.
--- NOTE | 2019-08-02 19:14 | NUR ---
RECEIVED PT FROM DAY SHIFT ON DOCUMENTED SETTINGS. VENT PLUGGED INTO RED OUTLET. BMV AT BEDSIDE. ALARMS AUDIBLE AND WORKING. ETT SECURED AND INTACT. PT IS AGITATED AND ALERT. PULLED VENT CIRCUIT WITH RIGHT ARM. BREATHING TX STOPPED. RN INCREASED SEDATION. WILL CONT TO MONITOR
--- NOTE | 2019-08-02 19:28 | NUR ---
RECEIVED BEDSIDE REPORT FROM AM SHIFT NURSEYANET. PATIENT IS LYING IN BED, SUPINE. PATIENT IS SEDATED WITH RASS -4. DRY WEIGHT IS 102KG. NO SOB OR DISTRESS NOTED. PATIENT IS ON ETT TO MECHANICAL VENTILATOR. TOLERATING VENT SETTINGS WELL AT ACVC MODE, FI02 AT 30%, VT AT 450, RR AT 20 AND PEEP 8. G-TUBE IN PLACE, GRAVITY DRAIN TO BAG. THOMPSON CATHETER IN PLACE, DRAINING WELL WITH YELLOW COLORED URINE. NG-TUBE IN LEFT NARE, CONNECTED TO CONTINUOUS SUCTION WITH DARK GREEN/BLACK FLUID DRAINAGE. RECTAL TUBE IN PLACE WITH THERMOMETER. COOLING BLANKET IN PLACE. BILATERAL LOWER ABDOMINAL [place] DRAINS NOTED, DRAINING SEROSANGUINEOUS FLUID. LEFT EYE IS FIXED AND CLOUDY. RIGHT EYE PERRLA AT 3MM, NONREACTIVE. PATIENT NOTED WITH OPEN ABDOMINAL SURGICAL WOUND, ENFORCED PROPERLY. RIGHT UPPER ARM PICC DOUBLE LUMEN NOTED. FIRST LUMEN RUNNING FENTANYL AT 2MCG/KG/HR AND VERSED AT 6MG/HR, PATENT AND INTACT. SECOND LUMEN RUNNING IVF WITH IVPB, PATENT AND INTACT. FEMORAL CENTRAL LINE TRIPLE LUMEN NOTED. FIRST LUMEN RUNNING VASOPRESSIN AT 0.04UNIT/MIN AND LEVOPHED AT 4 MCG/MIN, PATENT AND INTACT. SECOND LUMEN RUNNING TPN AT 80ML, PATENT AND INTACT AND THIRD LUMEN SALINE LOCK. BED IN LOW, BED LOCKED. SAFETY MEASURES IN PLACE. SEIZURE PRECAUTIONS IN PLACE. INITIAL ASSESSMENT DONE. WILL CONTINUE TO MONITOR PATIENT.
--- NOTE | 2019-08-02 19:55 | NUR ---
VERSED DOSE INCREASED TO 7MG/HR. PATIENT RASS-3. WILL CONTINUE TO MONITOR PATIENT.
--- NOTE | 2019-08-02 20:15 | NUR ---
ORAL CARE DONE.
--- NOTE | 2019-08-02 20:20 | NUR ---
called by jon mustafa due to a vent circuit leak. ett was out by 2 cm. advanced ett 2 cm. ett is 7.5 @21 at the gum now. no leak noted. pt is achieving good tidal volume and saturation is good. will cont to monitor
[2019-08-02] MEDS: DEXTROSE IV SCH ×3 (20:23)
[2019-08-02] MEDS: MULTIVITAMIN IV SCH ×3 (20:23)
[2019-08-02] MEDS: AMINO ACIDS 8.5% IV SCH ×3 (20:23)
--- NOTE | 2019-08-02 20:23 | NUR ---
NEW TPN BAG HUNG. POTASSIUM CHLORIDE ADMINISTERED THROUGH NG-TUBE.
[2019-08-02] MEDS: POTASSIUM CHLORIDE 20% 40 MEQ/15 ML UDC GT SCH (20:24)
[2019-08-02] MEDS: BISACODYL 10 MG SUPP RC SCH (20:25)
--- NOTE | 2019-08-02 20:25 | NUR ---
MEREDITH HUNG AT THIS TIME.
--- NOTE | 2019-08-02 21:23 | NUR ---
CORDARONE HUNG AT THIS TIME.
--- NOTE | 2019-08-02 21:35 | NUR ---
ett advanced to 22 cm at the gum. no leak noted. waiting for xray results
--- NOTE | 2019-08-02 22:27 | NUR ---
NEW BAG OF STEFANY HENNESSY AT THIS TIME. RASS -4. WILL CONTINUE TO MONITOR PATIENT.
--- NOTE | 2019-08-02 23:11 | NUR ---
IVKAREEM GUNDERSON HUNG AT THIS TIME.
--- NOTE | 2019-08-02 23:20 | NUR ---
PATIENT HAD A BLOOD GLUCOSE RESULT OF 317 WITH 8 UNITS OF REGULAR HUMALOG INSULIN GIVEN.
--- NOTE | 2019-08-02 23:34 | NUR ---
FENTANYL BAG CHANGED AT THIS TIME. RASS -4. WILL CONTINUE TO MONITOR PATIENT.
[2019-08-03] VITALS (101 sets, daily range): BP systolic 92–159; BP diastolic 36–86
[2019-08-03] MEDS: VANCOMYCIN 1,000 MG in NACL 0.9% 250 ML IV SCH ×2 (00:28→13:43)
[2019-08-03] MEDS: HYDRAGUARD CREAM TP SCH ×2 (00:28→13:00)
--- NOTE | 2019-08-03 00:28 | NUR ---
VISHAL HENNESSY AND RUNNING. HYDRAGUARD APPLIED. PT TOLERATED WELL. Addendum: 08/03/19 at 0038 by Jorge Castro RN ORAL CARE DONE.
[2019-08-03] MEDS: ALBUTEROL SULFATE/IPRATROPIU 3 ML SOL IH SCH ×4 (01:00→19:00)
--- NOTE | 2019-08-03 01:21 | NUR ---
VENT CHECKED. PT ON SAME SETTINGS. PT IS KIND OF ALERT. ATTEMPTED TO RIP OUT HHN TX AT 1900 TX. DID NOT ADMINISTER TX. SATURATION IS GOOD. B/S WERE A LITTLE COURSE BUT GOOD AERATION BILATERALLY. PT APPEARS IN NO DISTRESS. WILL CONT TO MONITOR
[2019-08-03] MEDS: VASOPRESSIN 20 UNITS in NACL 0.9% 250 ML IV SCH ×2 (03:04→12:03)
--- NOTE | 2019-08-03 03:04 | NUR ---
NEW BAG OF VASOPRESSIN HUNG AT THIS TIME. WILL CONTINUE TO MONITOR PATIENT CLOSELY.
--- NOTE | 2019-08-03 04:30 | NUR ---
MORNING CARE DONE. THOMPSON CARE DONE. ORAL CARE DONE. LINENS AND GOWN CHANGED. PATIENT MADE DRY AND COMFORTABLE.
[2019-08-03] MEDS: fentaNYL 1 MG in NACL 0.9% 80 ML IV PRN ×4 (05:05→22:20)
--- NOTE | 2019-08-03 05:05 | NUR ---
NEW BAG OF FENTANYL HUNG AT THIS TIME. RASS -4. WILL CONTINUE TO CLOSELY MONITOR PATIENT.
[2019-08-03] MEDS: PIPERACILLIN/TAZOBACTAM 3.375 GM in DEXTROSE 5% 50 ML IV SCH ×4 (05:14→23:53)
[2019-08-03] MEDS: INSULIN LISPRO SLIDING SCALE 100 UNITS/ML VIAL SUBQ PRN ×5 (05:14→23:53)
[2019-08-03] MEDS: BLOOD GLUCOSE MONITORING 1 DEV DEV MC SCH ×5 (05:15→23:53)
--- NOTE | 2019-08-03 05:15 | NUR ---
DHEERAJ GUNDERSON HUNG AT THIS TIME. PATIENT HAD A BLOOD GLUCOSE RESULT OF 281 WITH 6 UNITS OF REGULAR HUMALOG INSULIN ADMINISTERED.
--- NOTE | 2019-08-03 05:30 | NUR ---
pt remains on documented settings. vent plugged into red outlet. alarms set. bmv at bedside. ett secured and intact. pt is agitated and alert. jon mustafa at bedside. pt is in no respiratory distress. will cont to monitor
[2019-08-03 05:42] LABS: HEMATOCRIT 21.2 % (36-52); HEMOGLOBIN 7.3 g/dL (12.0-18.0); MEAN CORPUSCULAR HEMOGLOBIN 29 pg (27-31); MEAN CORPUSCULAR HGB CONC 34 g/dL (33-37); MEAN CORPUSCULAR VOLUME 85.2 fL (80-94); PLATELET COUNT (AUTO) 166 K/uL (140-450); RED BLOOD CELL COUNT(AUTO) 2.49 MIL/uL (4.20-6.10); RED CELL DISTRIBUTION WIDTH 14.8 % (11.6-13.7)
[2019-08-03 05:46] LABS: WHITE BLOOD COUNT (AUTO) 25.4 K/uL (4.8-10.8)
[2019-08-03 06:25] LABS: ALBUMIN 1.3 g/dL (3.4-5.0); ANION GAP 10.7 (8-16); MAGNESIUM 2.1 mg/dL (1.8-2.4); PHOSPHORUS 3.4 mg/dL (2.5-4.9); TOTAL BILIRUBIN 3.2 mg/dL (0.0-1.0)
--- NOTE | 2019-08-03 06:30 | NUR ---
LAB CALLED WITH CRITICAL VALUE FOR POTASSIUM OF 2.7. PAGED. AWAITING FOR CALL BACK.
[2019-08-03 06:31] LABS: POTASSIUM 2.7 mmol/L (3.5-5.1)
[2019-08-03 07:07] LABS: EOSINOPHILS % (MANUAL) 4 % (0-4); LYMPHOCYTES % (MANUAL) 5 % (20-46); METAMYELOCYTES % 6 % (0-0); MONOCYTES % (MANUAL) 13 % (5-12); MYELOCYTES % 4 % (0-0)
--- NOTE | 2019-08-03 07:17 | NUR ---
PAGED SECOND TIME. PATIENT IN STABLE CONDITION. ENDORSED TO AM SHIFT NURSE FOR CONTINUITY OF CARE.
--- NOTE | 2019-08-03 07:30 | NUR ---
RECEIVED BEDSIDE REPORT FROM PM SHIFT NURSE, PATIENT IS SEDATED WITH RASS -4. DRY WEIGHT IS 102KG. BEDSIDE MONITOR SHOWS SR-SB. LEFT EYE IS FIXED AND CLOUDY. RIGHT EYE 3MM, NONREACTIVE. PATIENT ETT TO VENTING WITH AC/VC FI02 AT 30%, VT AT 450, RR AT 20 AND PEEP 8. G-TUBE IN PLACE, GRAVITY DRAIN TO BAG. PT HAS NG TUBE IN PLACE CONNECTED TO SUCTION. BILATERAL LOWER ABDOMINAL [place] DRAINS NOTED, DRAINING SEROSANGUINEOUS FLUID. RECTAL TUBE IN PLACE WITH THERMOMETER. COOLING BLANKET IN PLACE. PATIENT HAS OPEN ABDOMINAL SURGICAL WOUND, PER PM SHIFT RN. SURGEON WILL CLOSE WOUND AT 10 AM. PT HAS RIGHT UPPER ARM PICC DOUBLE LUMEN NOTED. FIRST LUMEN RUNNING FENTANYL AT 2MCG/KG/HR AND VERSED AT 7MG/HR. SECOND LUMEN RUNNING TPN AT 80 CC/HR. FEMORAL CENTRAL LINE TRIPLE LUMEN NOTED. FIRST LUMEN RUNNING VASOPRESSIN AT 0.04UNIT/MIN AND LEVOPHED AT 4 MCG/MIN, PATENT AND INTACT. SECOND LUMEN RUNNING LVF AT 5 CC/HR TKO . THIRD LUMEN SALINE LOCK. BED IN LOW POSITION. SAFETY MEASURES IN PLACE. SEIZURE PRECAUTIONS IN PLACE. WILL CONTINUE TO MONITOR PATIENT.
[2019-08-03] MEDS: MIDAZOLAM MDV 50 MG in NACL 0.9% 40 ML IV PRN ×2 (07:45→16:04)
--- NOTE | 2019-08-03 07:50 | NUR ---
DR. GONZALEZ CAME IN TO CHECK PT. UPDATED LAB REPORT. PER DR. GONZALEZ, PT K 2.7, WE SHOULD GIVE PT TOTAL [address] PRIYANKA Kunz ORDERED 40 MEQ, SO WE JUST GAVE PT 40 MEQ KCL MORE
[2019-08-03] MEDS: KCL 20 MEQ/WATER INJ PREMIX 200 ML IV SCH ×2 (08:31→11:29)
[2019-08-03] MEDS: VALPROATE SODIUM 1,000 MG in NACL 0.9% 100 ML IV SCH ×2 (08:32→20:40)
[2019-08-03] MEDS: AMIODARONE 150 MG in DEXTROSE 5% 100 ML IV SCH ×2 (08:32→20:43)
[2019-08-03] MEDS: PANTOPRAZOLE 40 MG INJ VIAL IVP SCH (08:32)
[2019-08-03] MEDS: FUROSEMIDE 40 MG/4 ML VIAL IVP SCH ×3 (08:33→17:46)
[2019-08-03] MEDS: POTASSIUM CHLORIDE 20% 40 MEQ/15 ML UDC GT SCH (09:00)
[2019-08-03] MEDS: SPIRONOLACTONE 25 MG TAB PO SCH (09:00)
[2019-08-03] MEDS: ASCORBIC ACID 500 MG TAB GT SCH (09:00)
[2019-08-03] MEDS: CLINICAL MONITORING MC SCH (09:00)
[2019-08-03] MEDS: INSULIN NPH HUMAN ISOPHANE 100 UNIT/ML VIAL SUBQ SCH (09:02)
--- NOTE | 2019-08-03 09:51 | NUR ---
OR NURSE CLEMENTINA CAME IN TO TAKE PT TO OR. DR. DELGADO SURGEON AT BEDSIDE.
[2019-08-03] MEDS ORDERED: SEVOFLURANE 250 ML BTL INH ONE (09:52)
[2019-08-03] MEDS ORDERED: fentaNYL 0.05 MG/ML VIAL ONE (09:52)
[2019-08-03] MEDS ORDERED: VASOPRESSIN 20 UNITS/ML VIAL ONE (09:52)
[2019-08-03] MEDS ORDERED: ROCURONIUM 50 MG/5 ML VIAL IV ONE (09:52)
[2019-08-03] MEDS ORDERED: NOREPINEPHRINE 4 MG/4 ML VIAL IV ONE (09:52)
[2019-08-03] MEDS ORDERED: MIDAZOLAM 2 MG/2 ML VIAL ONE (09:52)
--- NOTE | 2019-08-03 09:52 | NUR ---
PT MANUALLY VENTILATED TO OR, THEN OR TEAM TOOK OVER FOR VENTILATING PT. ETT SECURE WITH A PATENT AIRWAY. PT NOT IN ANY DISTRESS.
--- NOTE | 2019-08-03 11:00 | NUR ---
PT RETURNED FROM OR AND PLACED BACK ON VENTILATOR WITH DOCUMENTED SETTINGS. PT NOT IN ANY DISTRESS AT THIS TIME. WILL CONTINUE TO MONITOR.
--- NOTE | 2019-08-03 11:15 | NUR ---
RETURNED FROM OR.
--- NOTE | 2019-08-03 12:00 | NUR ---
PER CHARGE NURSE ELIAS, ONLY GAVE ONE UNIT OF BLOOD.
--- NOTE | 2019-08-03 13:00 | NUR ---
GAVE DR. DELGADO UPDATE ON PT STATUS. MADE HIM AWARE THAT TOWEL IS SOAKED FROM SURGICAL WOUND. NOTHING CAME OUT OF THE SUCTION TUBING. GP DRAIN FILLS QUICKLY WITH AIR, EVEN AFTER RELEASING. ASKED IF POSSIBLE FOR NG TUBE SUCTION TO BE BY GRAVITY.
--- NOTE | 2019-08-03 13:04 | NUR ---
DR. PRIYANKA Kunz CAME IN TO CHECK PT. UPDATED PT'S CONDITION, PER DR. MATHEW. CHECK K LEVEL AT THE END OF THE SHIFT, ONE HOUR LATER AFTER 80 MEQ KCL DONE, WILL CARRY OUT. Addendum: 08/03/19 at 1316 by Toby Johnson RN DR. MATHEW ALSO MADE AWARE PT HAS 40 MEQ KCL BY NG TUBE BUT DR. MENG WANTS PT CHANGE ALL THE PO MEDS TO IV. THAT'S WAY WE DID NOT GIVE ANOTHER 40 MEQ BY NG TUBE AND SHAW TO IV . DR. GONZALEZ WANTS TO GIVE TOTAL 80 MEQ.
--- NOTE | 2019-08-03 13:30 | NUR ---
RT AT BEDSIDE
[2019-08-03] MEDS: KCL 20 MEQ/WATER INJ PREMIX 100 ML IV SCH ×2 (13:44→15:50)
--- NOTE | 2019-08-03 14:20 | NUR ---
YOON SAID TO PUT THE CONTACT ISOLATION SIGN UP NEXT TO THE BED AND CHEK WITH DR. CONCEPCION WHEN HE COME.
--- NOTE | 2019-08-03 14:20 | NUR ---
INFORM INFECTION PREVENTION [YOON ] THAT PT HAS POSITIVE E COLI IN ABDOMINAL ASPIRATION FLUID CULTURE.
--- NOTE | 2019-08-03 14:52 | NUR ---
08/03/19 FOLLOW UP COMPLETED PLEASE REFER TO NUTRITION ASSESSMENT UNDER CARE ACTIVITY FOR ESTIMATED NUTRITIONAL NEEDS. 1. RECOMMEND GRADUALLY INCREASING TPN WHEN MEDICALLY APPROPRIATE, TO MEET AT LEAST 75% OF CALORIES AND PROTEIN NEEDS -CURRENT TPN PROVIDES 979 KCAL AND 81 GM OF PROTEIN/DAY WHICH IS 53% OF KCAL NEEDS AND 73% OF PROTEIN NEEDS. 2. IF/WHEN PATIENT IS MEDICALLY CLEARED TO RE-START G-TUBE FEEDINGS, CONSIDER VITAL 1.2 @ 70 ML/HR X 24 HR. START AT 25 ML/HR AND ADVANCE BY 25 ML/HR Q4H -THIS WILL PROVIDE 2016 KCAL AND 126 GM OF PROTEIN WHICH MEETS 100% OF ESTIMATED NEEDS 3. RECOMMEND FREE WATER FLUSH [address] TO FOLLOW-UP 2-3 DAYS, HIGH RISK OCTAVIA SALMERON RD
--- NOTE | 2019-08-03 15:00 | NUR ---
STARTED BLOOD TRANSFUSION AT 1140, ENDED AT 1500/ NO REACTION NOTED.
--- NOTE | 2019-08-03 17:00 | NUR ---
called dr. singh's office, dr. rojas research and evaluation manager. notified pt's wound dressing distended and the tape put on is very tight, looks light it will burst out. Dr. rojas stated he will call dr. Singh.
--- NOTE | 2019-08-03 17:08 | NUR ---
Dr. Singh called back, he told us to take a picture to send to him. Picture sent by charge nurse.
--- NOTE | 2019-08-03 17:10 | NUR ---
RT AT BEDSIDE
--- NOTE | 2019-08-03 17:24 | NUR ---
PT REMAINS ON DOCUMENTED VENT SETTINGS. PT NOT IN ANY DISTRESS AT THIS TIME. ETT IS SECURE WITH A PATENT AIRWAY. VENT ALARMS REMAIN ON AND FUNCTIONING.
--- NOTE | 2019-08-03 17:55 | NUR ---
LATE ENTRY: CALLED CHARGE NURSE ELIAS, FELISHA MYERS, DR. DELGADO TELEPHONE ORDERED NARENDRA JUNE.
--- NOTE | 2019-08-03 18:05 | NUR ---
Late entry: called back, he said he saw the picture already, updated pt's vital signs. no new order received.
--- NOTE | 2019-08-03 18:15 | NUR ---
TALKED TO ZAYDA OUR PRINCIPAL MECHANICAL ENGINEER GIVE HER REP0RT OF PATIENT CONDITION AND ASK HER ADVICE ABOUT SITUATION THAT DR. DELGADO ORDER TO PARALYZE THE PATIENT BUT DID NOT TO WRITE ORDER FOR MEDICATION TEL US TO CALL COVERAGE ANALYST WHEN CALL PULMO. HE SAID TO CALL PHARMACY . THE PHARMACIST SAID THEY ONLY DO WHAT DOCTOR ORDERED. ZAYDA ADVICED TO CALL DR. MATHEW WHO IS THE PRIMARY PHYSICIAN.
[2019-08-03 18:32] LABS: HEMATOCRIT 25.5 % (36-52); HEMOGLOBIN 8.8 g/dL (12.0-18.0); MEAN CORPUSCULAR HEMOGLOBIN 29 pg (27-31); MEAN CORPUSCULAR HGB CONC 35 g/dL (33-37); MEAN CORPUSCULAR VOLUME 84.6 fL (80-94); PLATELET COUNT (AUTO) 160 K/uL (140-450); RED BLOOD CELL COUNT(AUTO) 3.01 MIL/uL (4.20-6.10); RED CELL DISTRIBUTION WIDTH 14.4 % (11.6-13.7)
--- NOTE | 2019-08-03 18:45 | NUR ---
CALLED DR. MATHEW , TOLD HIM ABOUT THE SITUATION. HE WILL CALL DR. DELGADO.
[2019-08-03 18:54] LABS: WHITE BLOOD COUNT (AUTO) 25.1 K/uL (4.8-10.8)
[2019-08-03 19:09] LABS: ANION GAP 12.2 (8-16); CARBON DIOXIDE 26.7 mmol/L (21-32)
--- NOTE | 2019-08-03 19:30 | NUR ---
RECEIVED BEDSIDE REPORT FROM AM SHIFT NURSE, PT SEDATED RASS -4. DRY WEIGHT IS 102KG. LEFT EYE IS FIXED AND CLOUDY. RIGHT EYE 3MM, NONREACTIVE. PATIENT ETT TO VENT ON AC/VC SETTINGS, FIO2 30%, TV 450, RR 20, PEEP 8. IV SITE RIGHT UPPER ARM PICC DOUBLE LUMEN NOTED INFUSING FENTANYL AT 2MCG/KG/HR, VERSED AT 7MG/HR AND TPN AT 80 ML/HR. RIGHT FEMORAL CENTRAL LINE TRIPLE LUMEN NOTED INFUSING AT 5 ML/HR TKO. G-TUBE IN PLACE, GRAVITY DRAIN TO BAG. NG TUBE IN L NARE PLACE CONNECTED TO LOW INTERMITTENT SUCTION. BILATERAL LOWER ABDOMINAL [place] DRAINS NOTED, DRAINING SEROSANGUINEOUS FLUID. ABDOMINAL BINDER IN PLACE. RECTAL TUBE IN PLACE. PATIENT HAS OPEN ABDOMINAL SURGICAL WOUND. HOB 30 DEGREES. BED LOCKED IN LOWEST POSITION. SEIZURE PRECAUTIONS IN PLACE. WILL CONTINUE TO MONITOR.
[2019-08-03 19:45] LABS: POTASSIUM 2.9 mmol/L (3.5-5.1)
[2019-08-03 20:20] LABS: BASOPHILS % (MANUAL) 0 % (0-2); EOSINOPHILS % (MANUAL) 0 % (0-4); LYMPHOCYTES % (MANUAL) 8 % (20-46); METAMYELOCYTES % 3 % (0-0); MONOCYTES % (MANUAL) 7 % (5-12)
[2019-08-03] MEDS: MULTIVITAMIN IV SCH ×3 (20:45)
[2019-08-03] MEDS: DEXTROSE IV SCH ×3 (20:45)
[2019-08-03] MEDS: AMINO ACIDS 8.5% IV SCH ×3 (20:45)
[2019-08-03] MEDS: BISACODYL 10 MG SUPP RC SCH (21:00)
[2019-08-03] MEDS ORDERED: KCL 20 MEQ/WATER INJ PREMIX 200 ML IV SCH (21:05)
--- NOTE | 2019-08-03 21:30 | NUR ---
MADE AWARE OF PATIENTS LOW POTASSIUM AND NOTHING BY NG TUBE ORDER, NEW ORDER RECEIVED FOR 40 MEQ KCL IV AND CONTINUE NPO. ALSO MADE AWARE OF H&H-8.8 AND 25.5. UPDATED ON PATIENT CONDITION AND ABDOMINAL BINDER APPLIED, PATIENT MAINTAINS RASS -4 WITH VERSED AND FENTANYL, MOVEMENT IS MINIMAL. CONFIRMED OK, NO NEW ORDERS FOR PARALYTICS AT THIS TIME. WILL CARRY OUT.
--- NOTE | 2019-08-03 22:20 | NUR ---
HUNG NEW BAG OF FENTANYL. PT SEDATED ON VERSED AND FENTANYL, RASS -4. RESPIRATIONS EVEN AND UNLABORED. CHEST RISE IS SYMMETRICAL. SAFETY PRECAUTIONS IN PLACE. HOB 30 DEGREES. BED LOCKED IN LOWEST POSITION. WILL CONTINUE TO MONITOR.
[2019-08-04] VITALS (102 sets, daily range): BP systolic 65–162; BP diastolic 43–89
[2019-08-04] MEDS: HYDRAGUARD CREAM TP SCH ×2 (00:11→13:44)
[2019-08-04] MEDS: VANCOMYCIN 1,000 MG in NACL 0.9% 250 ML IV SCH ×2 (00:11→12:04)
--- NOTE | 2019-08-04 00:18 | NUR ---
ORAL CARE PROVIDED, THICK YELLOW SECRETIONS REMOVED FROM ETT VENT. O2 SATURATION AT 95%. RT MADE AWARE. WILL CONTINUE TO MONITOR.
[2019-08-04] MEDS: MIDAZOLAM MDV 50 MG in NACL 0.9% 40 ML IV PRN ×4 (01:34→17:13)
--- NOTE | 2019-08-04 01:34 | NUR ---
HUNG NEW BAG OF VERSED, PT SEDATED RASS -4. RESPIRATIONS EVEN AND UNLABORED. CHEST RISE IS SYMMETRICAL. HO 30 DEGREES. BED LOCKED IN LOWEST POSITION. WILL CONTINUE TO MONITOR.
[2019-08-04] MEDS: fentaNYL 1 MG in NACL 0.9% 80 ML IV PRN ×6 (02:30→21:32)
[2019-08-04] MEDS: ALBUTEROL SULFATE/IPRATROPIU 3 ML SOL IH SCH ×4 (03:08→19:11)
--- NOTE | 2019-08-04 03:37 | NUR ---
PT HAS EYES CLOSED. SEDATED AT RASS -4. RESPIRATIONS EVEN AND UNLABORED. CHEST RISE IS SYMMETRICAL. HOB 30 DEGREES. BED LOCKED IN LOWEST POSITION. WILL CONTINUE TO MONITOR.
[2019-08-04 05:05] LABS: BASOPHILS # (AUTO) 0.2 K/uL (0.00-0.22); BASOPHILS % (AUTO) 0.7 % (0.0-2.0); EOSINOPHILS # (AUTO) 0.1 K/uL (0-0.4); EOSINOPHILS % (AUTO) 0.3 % (0.0-4.0); HEMATOCRIT 25.7 % (36-52); HEMOGLOBIN 8.8 g/dL (12.0-18.0); LYMPHOCYTES # (AUTO) 2.4 K/uL (2.0-11.5); LYMPHOCYTES % (AUTO) 9.1 % (20.5-51.1); MEAN CORPUSCULAR HEMOGLOBIN 29 pg (27-31); MEAN CORPUSCULAR HGB CONC 34 g/dL (33-37); MEAN CORPUSCULAR VOLUME 85.7 fL (80-94); MONOCYTES # (AUTO) 2.5 K/uL (0.8-1.0); MONOCYTES % (AUTO) 9.3 % (1.7-9.3); NEUTROPHILS # (AUTO) 21.7 K/uL (1.8-7.7); NEUTROPHILS % (AUTO) 80.6 % (42.2-75.2); PLATELET COUNT (AUTO) 164 K/uL (140-450); RED CELL DISTRIBUTION WIDTH 14.8 % (11.6-13.7)
[2019-08-04] MEDS: PIPERACILLIN/TAZOBACTAM 3.375 GM in DEXTROSE 5% 50 ML IV SCH (05:07)
[2019-08-04] MEDS: INSULIN LISPRO SLIDING SCALE 100 UNITS/ML VIAL SUBQ PRN (05:09)
[2019-08-04 05:32] LABS: WHITE BLOOD COUNT (AUTO) 26.9 K/uL (4.8-10.8)
--- NOTE | 2019-08-04 05:33 | NUR ---
RESPIRATORY AT BEDSIDE.
[2019-08-04] MEDS: BLOOD GLUCOSE MONITORING 1 DEV DEV MC SCH ×4 (06:00→17:24)
--- NOTE | 2019-08-04 06:21 | NUR ---
DR ARMENDARIZ IN TO ASSESS PT. ORDERS FOR CHEST XRAY AND ABG TO BE DONE TODAY.
[2019-08-04 06:36] LABS: ANION GAP 12.1 (8-16); CARBON DIOXIDE 26.5 mmol/L (21-32); CREATININE 1.1 mg/dL (0.6-1.3); POTASSIUM 3.6 mmol/L (3.5-5.1)
[2019-08-04 06:39] LABS: MAGNESIUM 2.1 mg/dL (1.8-2.4)
[2019-08-04] MEDS: FUROSEMIDE 40 MG/4 ML VIAL IVP SCH ×3 (08:12→16:31)
[2019-08-04] MEDS: PANTOPRAZOLE 40 MG INJ VIAL IVP SCH (08:12)
--- NOTE | 2019-08-04 08:16 | NUR ---
Bedside report done with Andre.Pt with right wrist arterial line ,dressing dry and intact.zeroed.Right femoral triple lumen catheter intact and patent.Right upper arm picc line patent and intact.Dressing dry and intact.Ett to vent with vent setting as follows:fio2=30 percent.ve=574,ac=20,peep=5.flacc=0.kay to gravity with yellow urine output.Right and left [place] bulb intact and patent.Right lower tube to gravity drainage.surgical abdominal dressing dry and intact on top but small leakage at the bottom -towel applied.nsr on the monitor.ngt to low suction as ordered.abdominal binder intact.will monitor.
--- NOTE | 2019-08-04 08:43 | NUR ---
BEDSIDE REPORT GIVEN TO AM SHIFT RN FOR CONTINUITY OF CARE. PT IN STABLE CONDITION.
[2019-08-04] MEDS: INSULIN NPH HUMAN ISOPHANE 100 UNIT/ML VIAL SUBQ SCH (09:33)
[2019-08-04] MEDS: VALPROATE SODIUM 1,000 MG in NACL 0.9% 100 ML IV SCH ×2 (09:50→20:14)
[2019-08-04] MEDS: CLINICAL MONITORING MC SCH (09:50)
[2019-08-04] MEDS: SPIRONOLACTONE 25 MG TAB PO SCH (09:55)
[2019-08-04] MEDS: AMIODARONE 150 MG in DEXTROSE 5% 100 ML IV SCH ×2 (09:55→20:16)
--- NOTE | 2019-08-04 11:49 | NUR ---
PT NOT IN ANY DISTRESS AT THIS TIME. ETT SECURE WITH PATENT AIRWAY. WILL CONTINUE TO MONITOR.
--- NOTE | 2019-08-04 12:00 | NUR ---
per dr MENG leave right arterial line-dont discontinue.
[2019-08-04] MEDS: MEROPENEM 1,000 MG in NACL 0.9% 100 ML IV SCH ×2 (13:32→20:14)
[2019-08-04] MEDS: NOREPINEPHRINE 16 MG in DEXTROSE 5% 250 ML IV PRN (13:37)
--- NOTE | 2019-08-04 14:00 | NUR ---
Right femoral triple lumen discontinued.applied pressure.Pt tolerated well.
--- NOTE | 2019-08-04 14:58 | NUR ---
DR CONCEPCION MADE ROUNDS AND UPDATED ABOUT PTS CONDITION.WBC RESULT,URINE OUTPUT.
--- NOTE | 2019-08-04 17:43 | NUR ---
PT REMAINS ON DOCUMENTED VENT SETTINGS. PT NOT IN ANY DISTRESS AT THIS TIME. VENT ALARMS ON AND FUNCTIONING.
--- NOTE | 2019-08-04 19:11 | NUR ---
RECEIVED PATIENT FROM AM SHIFT. PATIENT IS INTUBATED WITH ETT SIZE 7.5 AND SECURED WITH ANCHOR-FAST AT 22CM @ THE TEETH. PATIENT IS ON VENT SETTINGS: RR 20, VT 450, PEEP 5, AND FiO2 30%. VENT PLUGGED IN RED OUTLET, ALARMS SET AND AUDIBLE, BVM AT BEDSIDE, AND HOB > 30 DEGREES. PATIENT IS IN NO APPARENT RESPIRATORY DISTRESS AT THIS TIME: RR 20, HR 79, SPO2 97%, AND A COARSE BILATERAL BREATH SOUNDS ON AUSCULTATION. SUCTION SMALL AMOUNT OF YELLOW THICK SECRETIONS FROM THE ETT. HHN TX GIVEN ORDERED WITH NO ADVERSE REACTION. WILL CONTINUE TO MONITOR PATIENT.
--- NOTE | 2019-08-04 19:45 | NUR ---
RECEIVED PT FROM DAY SHIFT RN, PT IS SEDATED RASS -4, PT LEFT EYE SLUGGISH DILATION 3MM, PT ON ON VENT AC/VC FIO2 30 VT 450 RR 20 FLOW 35 PEEP 5, PT HAS NG TUBE LEFT NARE, LUNGS SOUNDS CLEAR BILATERAL, S1 S2 HEART SOUNDS HEARD, PT SINUS RHYTHM WITH BUNDLE BRANCH BLOCKS, PT HAS TRIPLE LUMEN CENTRAL LINE RIGHT IJ, AND PICC LINE RIGHT UPPER ARM, ARTERIAL LINE RIGHT ARM, PT HAS FENTANYL INFUSING 3 MCG/KG/MIN, VERSED 9ML/HR, NOREPINEPHRINE, 5MCG/KG/MIN, TPN 80ML/HR, PT HAS ABDOMINAL SURGICAL WOUND LEFT OPEN WITH DRESSING OVER IT, PT HAS PATSY VEGA LEFT AND RIGHT DRAINING SEROSANGUINEOUS, PT HAS PITTING EDEMA +2 RIGHT SIDED EXTREMITIES, PULSES PALPABLE UPPER AND LOWER EXTREMITIES PT HAS THOMPSON CATH IN PLACE DRAINING CLEAR LIGHT BRUNO IN COLOR, AND RECTAL TUBE BROWN LIQUID. BED IN LOWEST POSITION WITH HOB 30 DEGREES PER PROTOCOL Addendum: 08/04/19 at 2246 by Rene Galvez RN DRY WEIGHT 102 KG
[2019-08-04] MEDS: AMINO ACIDS 8.5% IV SCH ×3 (20:17)
[2019-08-04] MEDS: DEXTROSE IV SCH ×3 (20:17)
[2019-08-04] MEDS: MULTIVITAMIN IV SCH ×3 (20:17)
--- NOTE | 2019-08-04 21:00 | NUR ---
PT MEDS ADMINISTERED PT TOLERATING MEDICATION WILL CONTINUE TO MONITOR
[2019-08-04] MEDS: MIDAZOLAM MDV 100 MG in NACL 0.9% 80 ML IV PRN (23:48)
[2019-08-05] VITALS (107 sets, daily range): BP systolic 86–173; BP diastolic 40–89
[2019-08-05] MEDS: BLOOD GLUCOSE MONITORING 1 DEV DEV MC SCH ×5 (00:17→17:12)
[2019-08-05] MEDS: INSULIN LISPRO SLIDING SCALE 100 UNITS/ML VIAL SUBQ PRN ×5 (00:23→17:13)
[2019-08-05] MEDS: VANCOMYCIN 1,000 MG in NACL 0.9% 250 ML IV SCH ×2 (00:24→13:36)
[2019-08-05] MEDS: HYDRAGUARD CREAM TP SCH ×2 (00:26→13:36)
[2019-08-05] MEDS: fentaNYL 1 MG in NACL 0.9% 80 ML IV PRN ×7 (01:03→23:40)
--- NOTE | 2019-08-05 01:10 | NUR ---
PT RESTLESS IN BED RASS +2, INCREASED VERSED 11ML/HR WILL REASSESS IN 5 MIN AND CONTINUE TO MONITOR
--- NOTE | 2019-08-05 01:15 | NUR ---
PT RASS SEDATION BACK TO -4 WILL CONTINUE TO MONITOR
[2019-08-05] MEDS: ALBUTEROL SULFATE/IPRATROPIU 3 ML SOL IH SCH ×4 (01:17→19:00)
--- NOTE | 2019-08-05 04:00 | NUR ---
BATHED PT AND CHANGED LINENS PT REMAINS RASS -4 NO NEW SIGNS OF INJURY NOTED, WILL CONTINUE TO MONITOR PT
[2019-08-05] MEDS: MEROPENEM 1,000 MG in NACL 0.9% 100 ML IV SCH ×3 (04:24→20:13)
[2019-08-05 04:50] LABS: BASOPHILS # (AUTO) 0.2 K/uL (0.00-0.22); BASOPHILS % (AUTO) 0.6 % (0.0-2.0); EOSINOPHILS # (AUTO) 0.1 K/uL (0-0.4); EOSINOPHILS % (AUTO) 0.5 % (0.0-4.0); HEMOGLOBIN 8.4 g/dL (12.0-18.0); LYMPHOCYTES # (AUTO) 2.4 K/uL (2.0-11.5); LYMPHOCYTES % (AUTO) 9.4 % (20.5-51.1); MEAN CORPUSCULAR HEMOGLOBIN 29 pg (27-31); MEAN CORPUSCULAR HGB CONC 34 g/dL (33-37); MEAN CORPUSCULAR VOLUME 87.4 fL (80-94); MONOCYTES # (AUTO) 2.7 K/uL (0.8-1.0); MONOCYTES % (AUTO) 10.7 % (1.7-9.3); NEUTROPHILS # (AUTO) 19.9 K/uL (1.8-7.7); NEUTROPHILS % (AUTO) 78.8 % (42.2-75.2); PLATELET COUNT (AUTO) 185 K/uL (140-450); RED BLOOD CELL COUNT(AUTO) 2.86 MIL/uL (4.20-6.10)
[2019-08-05 05:02] LABS: ANION GAP 12.6 (8-16); CARBON DIOXIDE 27.5 mmol/L (21-32); CREATININE 1.3 mg/dL (0.6-1.3); POTASSIUM 3.1 mmol/L (3.5-5.1)
--- NOTE | 2019-08-05 05:07 | NUR ---
PATIENT IS IN NO RESPIRATORY DISTRESS AT THIS TIME. AIRWAY IS PATENT. WILL CONTINUE TO MONITOR PATIENT.
[2019-08-05 05:40] LABS: MAGNESIUM 2.2 mg/dL (1.8-2.4); PHOSPHORUS 4.8 mg/dL (2.5-4.9)
--- NOTE | 2019-08-05 06:00 | NUR ---
PT RASS -4 PT OCCASIONALLY WAKES UP FOR SEVERAL SECONDS RASS 0 TO -1 THEN RETURNS TO RASS -4 AFTER SUCTION AND REPOSITION, WILL CONTINUE TO MONITOR
[2019-08-05 06:06] LABS: WHITE BLOOD COUNT (AUTO) 25.3 K/uL (4.8-10.8)
--- NOTE | 2019-08-05 07:11 | NUR ---
RECEIVED INTUBATED PT WITH A 7.5 ETT SECURED @22 TEETH/GUM ON VENT. SETTINGS AC 20, VT 450, PEEP 5 AND FIO2 30%. PT NOT ALERT BUT NOT IN ANY DISTRESS. AIRWAY IS PATENT AND ETT IS SECURE WITH ANCHOR FAST DEVICE. VENT IS PLUGGED INTO A RED OUTLET WITH ALARMS ON AND FUNCTIONING. WILL CONTINUE TO MONITOR.
--- NOTE | 2019-08-05 07:29 | NUR ---
ENDORSED PT TO DAY SHIFT RN, PT DISPLAYS NO SIGNS OF DISTRESS
--- NOTE | 2019-08-05 08:00 | NUR ---
REPORT RECEIVED FROM NIGHT NURSE. PT ON SEDATION WITH RASS -4. ON FENTANYL AND VERSED DRIPS. DRY WEIGHT 102KG. ON LEVOPHED DRIP. ARTERIAL LINE TO RIGHT WRIST. RIGHT IJ WITH TRIPLE LUMEN AND RIGHT PIC LINE TO RIGHT UPPER ARM. ALL PATENT AND ASYMPTOMATIC. ETT TO VENT WITH AC/VC 20, FIO2 30%, TV 450, PEEP 5. BILATERAL LUNG SOUNDS CRACKLES AND DIMINISHED. CONTINUOUS RECTAL TEMP MONITORING NOTED 100 F AT THIS TIME. COOLING MEASURES IN PLACE. OPEN SURGICAL AREA SECURED WITH DRESSING AND ABD BINDER. NO BLEEDING OR LEAKAGE NOTED. RIGHT AND LEFT IJ NOTED WITH SEROSANGUINEOUS DRAINAGE. THOMPSON DRAINAGE VIA GRAVITY FROM ABD WITH CLOUDY LIGHT YELLOWISH GREENISH. ANOTHER DRAINAGE FROM ABD CONNECTED TO INTERMITTENT SUCTION NOTED WITH DARK MAROON COLOR. SWOLLEN SCROTUM NOTED. BILATERAL UPPER EXTREMITIES WITH GENERALIZED SWELLING. THOMPSON CATHETER DRAINING CLEAR LIGHT RED COLOR URINE. FLACC 0. BILATERAL PADDED S/R. CALL LIGHT IN REACH. REPOSITIONED FOR COMFORT. WILL CONTINUE TO MONITOR.
[2019-08-05] MEDS ORDERED: fentaNYL 0.05 MG/ML VIAL ONE (08:10)
[2019-08-05] MEDS: FUROSEMIDE 40 MG/4 ML VIAL IVP SCH ×3 (08:41→16:04)
[2019-08-05] MEDS: PANTOPRAZOLE 40 MG INJ VIAL IVP SCH (08:41)
[2019-08-05] MEDS: ACETAMINOPHEN 650 MG/20.3 ML UDC GT PRN (08:46)
[2019-08-05] MEDS: SPIRONOLACTONE 25 MG TAB PO SCH (08:47)
[2019-08-05] MEDS: AMIODARONE 150 MG in DEXTROSE 5% 100 ML IV SCH ×2 (08:48→22:10)
[2019-08-05] MEDS: VALPROATE SODIUM 1,000 MG in NACL 0.9% 100 ML IV SCH ×2 (08:48→20:57)
[2019-08-05] MEDS: INSULIN NPH HUMAN ISOPHANE 100 UNIT/ML VIAL SUBQ SCH (08:49)
--- NOTE | 2019-08-05 08:50 | NUR ---
NOTED TEMP OF 100.8 F RECTALLY DESPITE COOLING MEASURES. ADMINISTERED TYLENOL SUP ORDERED. WILL CONTINUE TO MONITOR.
--- NOTE | 2019-08-05 09:15 | NUR ---
MEDI-THERM COOLING SHEET APPLIED IN BED. WILL CONTINUE TO MONITOR.
[2019-08-05] MEDS: CLINICAL MONITORING MC SCH (09:19)
[2019-08-05] MEDS: MIDAZOLAM MDV 100 MG in NACL 0.9% 80 ML IV PRN ×2 (09:45→19:17)
--- NOTE | 2019-08-05 10:30 | NUR ---
STAFF FROM DR. MENG CAME AND NOTIFIED THAT THERE IS A SURGERY SCHEDULED TOMORROW AM AND HE SHOULD CONTINUE TO BE NPO.
--- NOTE | 2019-08-05 11:16 | NUR ---
NEW ORDER RECEIVED FROM DR. Joaquina MATHEW FOR K-RIDER. NOTED AND WILL CARRY OUT.
[2019-08-05] MEDS: KCL 20 MEQ/WATER INJ PREMIX 200 ML IV SCH ×2 (11:30→13:58)
--- NOTE | 2019-08-05 12:14 | NUR ---
DR. Joaquina MATHEW IN TO SEE PT.
--- NOTE | 2019-08-05 12:15 | NUR ---
REPOSITIONED FOR COMFORT. AFEBRILE. FLACC 0. RASS -3. CONTINUE TO MONITOR.
--- NOTE | 2019-08-05 14:14 | NUR ---
REPOSITIONED FOR COMFORT. GOOD URINE OUTPUT WITH MORE CLEAR YELLOW IN COLOR. NO ODOR. RIGHT IJ VERY SMALL AMOUNT OF DRAINAGE. RIGHT IJ ABOUT 40ML OF CLOUDY BRUNO IN COLOR. ABD DRAINAGE CONNECTED TO INTERMITTENT SUCTION ABOUT 60ML DARK MAROON COLOR. ABD DRAINAGE VIA GRAVITY CLOUDY GREENISH YELLOW IN COLOR ABOUT 60ML SO FAR. FLACC 0. AFEBRILE. CONTINUE WITH COOLING MEASURES. CONTINUE WITH LEVOPHED, FENTANYL, AND VERSED DRIPS. CONTINUES WITH TPN ORDERED. NO CHANGE IN VENT SETTINGS. CONTINUE WITH CONTACT PRECAUTIONS. WILL CONTINUE TO MONITOR.
--- NOTE | 2019-08-05 14:39 | NUR ---
RADIO STATION MANAGER FROM [facility] CALLED FOR THE REQUEST OF HIGHER LEVEL OF CARE TRANSFER AND WANTED TO GET MORE INFORMATION. UPDATED HIM ABOUT THE STATUS AND INFORMED ABOUT THE SURGICAL PLAN TOMORROW HERE PER KENNY DIAS OF DR. MENG. HE WILL PLACE A HOLD ON THE TRANSFER REQUEST AND WILL CALL US TOMORROW AM TO GET MORE UPDATES.
--- NOTE | 2019-08-05 14:45 | NUR ---
DR. CONWAY IN TO SEE PT.
--- NOTE | 2019-08-05 15:42 | NUR ---
REPOSITIONED FOR COMFORT. CONTINUE TO TITRATE FENTANYL AND VERSED DRIPS TO KEEP RASS -4. AFEBRILE. FLACC 0. WILL CONTINUE TO MONITOR.
--- NOTE | 2019-08-05 17:28 | NUR ---
REPOSITIONED FOR COMFORT. AFEBRILE. FLACC 0. CONTINUES WITH SAME VENT SETTING AND SAME DRIPS. WILL CONTINUE TO MONITOR.
--- NOTE | 2019-08-05 17:36 | NUR ---
PT NOT IN ANY DISTRESS AT THIS TIME. VENT ALARMS ON AND FUNCTIONING. ETT IS SECURE WITH A PATENT AIRWAY.
--- NOTE | 2019-08-05 19:00 | NUR ---
PT SEDATED, RESPONDS TO LIGHT PAIN, NON VERBAL, NO SIGNS OF ACUTE DISTRESS, WITH ETT TO VENT, FIO2 25%, ORAL AND TRACH CARE WITH SUCTION RENDERED. SKIN IS WARM AND DRY, NOTED SURGICAL DRESSING ON ABDOMEN, INTACT AND DRY, WITH 2 [place] DRAIN ON RIGHT AND LEFT QUADRANT ON THE ABDOMEN, BOTH DRAINING SANGUINEOUS FLUID. GTUBE CONNECTED TO DRAIN BY GRAVITY, NG TUBE NOTED ON LEFT NARES TO LOW INTERMITTENT SUCTION. THOMPSON CATHETER INTACT WITH CLEAR LIGHT BRUNO COLORED URINE. RECTAL TUBE IN PLACE WITH LOOSE STOOL NOTED. PT IS BEDBOUND, TURN AND REPOSITION Q2H, FLACC 0. MAINTAIN SAFETY PRECAUTIONS, ALL NEEDS ANTICIPATED, CALL LIGHT WITHIN REACH.
--- NOTE | 2019-08-05 19:16 | NUR ---
RECEIVED PATIENT FROM AM SHIFT. PATIENT IS INTUBATED WITH ETT SIZE 7.5 AND SECURED WITH ANCHOR-FAST AT 22CM @ THE TEETH. PATIENT IS ON VENT SETTINGS: RR 20, VT 450, PEEP 5, AND FiO2 30%. FiO2 TITRATED TO 25% WITH SPO2 OF 100%. VENT PLUGGED IN RED OUTLET, ALARMS SET AND AUDIBLE, BVM AT BEDSIDE, AND HOB > 30 DEGREES. PATIENT IS IN NO APPARENT RESPIRATORY DISTRESS AT THIS TIME: RR 20, HR 64, SPO2 100%, AND A COARSE BILATERAL BREATH SOUNDS ON AUSCULTATION. SUCTION SMALL AMOUNT OF YELLOW THICK SECRETIONS FROM THE ETT. HHN TX GIVEN ORDERED AND PATIENT TOLERATED WELL WITH NO ADVERSE REACTION. WILL CONTINUE TO MONITOR PATIENT.
[2019-08-05] MEDS: NOREPINEPHRINE 16 MG in DEXTROSE 5% 250 ML IV PRN (19:21)
--- NOTE | 2019-08-05 19:31 | NUR ---
BED SIDE REPORT GIVEN TO [facility] NURSE FOR CONTINUITY OF CARE.
[2019-08-05] MEDS: AMINO ACIDS 8.5% IV SCH ×3 (20:02)
[2019-08-05] MEDS: DEXTROSE IV SCH ×3 (20:02)
[2019-08-05] MEDS: MULTIVITAMIN IV SCH ×3 (20:02)
--- NOTE | 2019-08-05 20:52 | NUR ---
PHONE CALL TO DR MENG REGARDING BLOOD TRANSFUSION ORDER; PER LAB; NEW ORDER FOR TYPE AND SCREEN AND TRANSFUSE 1 UNIT PRBC NEEDS TO BE PUT IN; SAID OK TO ORDER
--- NOTE | 2019-08-05 22:00 | NUR ---
TURN AND REPOSITION, OFFLOAD TO PRESSURE AREAS, PROVIDED ORAL AND TRACH CARE WITH SUCTION, CONTINUE TO MONITOR.
--- NOTE | 2019-08-05 22:25 | NUR ---
OBTAINED 1 UNIT OF PRBC FROM BLOOD BANK, VERIFIED WITH CLIFFORD JAMESON AT BEDSIDE. TO ADMINISTER BLOOD THROUGH IV ORDERED.
--- NOTE | 2019-08-05 22:30 | NUR ---
PT STARTED ON 1 UNIT OF PRBC ORDERED. WILL CONTINUE TO MONITOR.
--- NOTE | 2019-08-05 22:45 | NUR ---
PT WITH NO SIGNS OF ADVERSE REACTION FROM BLOOD TRANSFUSION, NO HIVES, ITCHING, FEVER OR SOB. WILL CONTINUE TO MONITOR.
[2019-08-06] VITALS (78 sets, daily range): BP systolic 77–149; BP diastolic 48–94
[2019-08-06] MEDS: BLOOD GLUCOSE MONITORING 1 DEV DEV MC SCH ×5 (00:22→17:52)
[2019-08-06] MEDS: INSULIN LISPRO SLIDING SCALE 100 UNITS/ML VIAL SUBQ PRN ×3 (00:26→17:52)
[2019-08-06] MEDS: VANCOMYCIN 1,000 MG in NACL 0.9% 250 ML IV SCH ×2 (00:46→13:34)
[2019-08-06] MEDS: HYDRAGUARD CREAM TP SCH ×2 (00:48→13:27)
[2019-08-06] MEDS: ALBUTEROL SULFATE/IPRATROPIU 3 ML SOL IH SCH ×4 (01:46→19:14)
--- NOTE | 2019-08-06 01:50 | NUR ---
1 UNIT OF PRBC ADMINISTERED, NO ADVERSE REACTIONS NOTED. CONTINUE TO MONITOR.
--- NOTE | 2019-08-06 02:00 | NUR ---
PROVIDED ORAL AND TRACH CARE WITH SUCTION, TURN AND REPOSITION, OFFLOAD TO PRESSURE AREAS, CONTINUE TO MONITOR.
[2019-08-06] MEDS: fentaNYL 1 MG in NACL 0.9% 80 ML IV PRN ×4 (02:25→20:40)
[2019-08-06] MEDS: MIDAZOLAM MDV 100 MG in NACL 0.9% 80 ML IV PRN ×3 (02:34→20:38)
[2019-08-06] MEDS: MEROPENEM 1,000 MG in NACL 0.9% 100 ML IV SCH ×3 (05:01→20:32)
--- NOTE | 2019-08-06 05:53 | NUR ---
AIRWAY IS PATENT. TUBE IS SECURED. NO RESPIRATORY DISTRESS NOTED AT THIS TIME. WILL CONTINUE TO MONITOR.
[2019-08-06 06:37] LABS: BASOPHILS # (AUTO) 0.1 K/uL (0.00-0.22); BASOPHILS % (AUTO) 0.3 % (0.0-2.0); EOSINOPHILS # (AUTO) 0.2 K/uL (0-0.4); EOSINOPHILS % (AUTO) 0.9 % (0.0-4.0); HEMATOCRIT 26.1 % (36-52); HEMOGLOBIN 8.8 g/dL (12.0-18.0); LYMPHOCYTES # (AUTO) 1.9 K/uL (2.0-11.5); LYMPHOCYTES % (AUTO) 9.3 % (20.5-51.1); MEAN CORPUSCULAR HEMOGLOBIN 29 pg (27-31); MEAN CORPUSCULAR HGB CONC 34 g/dL (33-37); MEAN CORPUSCULAR VOLUME 86.9 fL (80-94); MONOCYTES # (AUTO) 2.7 K/uL (0.8-1.0); MONOCYTES % (AUTO) 13.6 % (1.7-9.3); NEUTROPHILS # (AUTO) 15.2 K/uL (1.8-7.7); NEUTROPHILS % (AUTO) 75.9 % (42.2-75.2); PLATELET COUNT (AUTO) 169 K/uL (140-450); RED BLOOD CELL COUNT(AUTO) 3.01 MIL/uL (4.20-6.10); RED CELL DISTRIBUTION WIDTH 15.2 % (11.6-13.7); WHITE BLOOD COUNT (AUTO) 20.1 K/uL (4.8-10.8)
[2019-08-06 06:43] LABS: ANION GAP 12.6 (8-16); CARBON DIOXIDE 26.9 mmol/L (21-32); CREATININE 1.1 mg/dL (0.6-1.3); MAGNESIUM 2.3 mg/dL (1.8-2.4); PHOSPHORUS 4.4 mg/dL (2.5-4.9); POTASSIUM 3.5 mmol/L (3.5-5.1); TOTAL BILIRUBIN 4.9 mg/dL (0.0-1.0)
--- NOTE | 2019-08-06 07:15 | NUR ---
RECEIVED INTUBATED PT WITH 7.5 ETT SECURED @22 TEETH/GUM ON VENT. SETTINGS AC 20, VT 450, PEEP 5 AND FIO2 25%. PT WILL OPEN HIS EYES IS NOT ALERT BUT NOT IN ANY DISTRESS. VENT IS PLUGGED INTO A RED OUTLET WITH ALARMS ON AND FUNCTIONING. AMUB BAG IS PRESENT NEAR BEDSIDE. WILL CONTINUE TO MONITOR. AIRWAY IS PATENT AND SECURE.
--- NOTE | 2019-08-06 07:27 | NUR ---
PT RESTING IN BED, NO SIGNS OF ACUTE DISTRESS, ENDORSED TO ONCOMING DAY SHIFT NURSE YANET HORTON FOR CONTINUITY OF CARE.
--- NOTE | 2019-08-06 07:30 | NUR ---
RECEIVED BEDSIDE REPORT FROM STAVE JOINTER RN. PT IS AFEBRILE, RASS -4, FLACC 0. SB WITH BBB ON MONITOR. S1 S2 HEARD. CAP REFILL < 3 SEC. PULSES PALPABLE TO ALL EXTREMITIES. ETT TO VENT W/ SETTINGS: A/C VC FIO2 25%, VT 450, RR 20, PEEP 5. LUNGS SOUND CRACKLES, DIMINISHED AT BASES. NGT IN LEFT NARE CONNECTED TO LOW INTERMITTENT SUCTION, PLACEMENT CONFIRMED VIA AUSCULTATION. ABDOMEN ROUND, DISTENDED. PT HAS MID ABDOMINAL SURGICAL INCISION, CONNECTED TO DRAINAGE. [place] DRAINS TO LEFT AND RIGHT LOWER ABDOMEN IN PLACE. PICC LINE TO ZACH, CENTRAL LINE TLC TO RIGHT FEMORAL ASYMPTOMATIC, PATENT AND INTACT, RUNNING FENTANYL DRIP AT 3 MCG/KG/HR (DRY WEIGHT 102 KG), VERSED DRIP AT 15 MG/HR, TPN AT 80 ML/HR. RUNNING LEVOPHED DRIP AT 7 MCG/MIN. ARTERIAL LINE INTACT TO RIGHT RADIAL. THOMPSON CATH IN PLACE DRAINING BRUNO URINE TO GRAVITY. SKIN IS DRY AND WARM TO TOUCH. HOB AT 30 DEGREES. BED IN LOWEST POSITION LOCKED. CALL LIGHT WITHIN REACH. NO SIGNS OF DISTRESS AT THIS TIME. WILL CONTINUE TO MONITOR. Addendum: 08/06/19 at 1400 by Love Shaffer RN CENTRAL LINE TLC TO RIGHT IJ Addendum: 08/06/19 at 1546 by Love Shaffer RN FENTANYL DRIP ADJUSTED TO 2 MG/KG/HR (200 MCG/HR, MAXIMUM DOSE)
--- NOTE | 2019-08-06 08:36 | NUR ---
PT TAKEN TO OR BY OR NURSE, ANESTHESIOLOGIST AT BEDSIDE.
[2019-08-06] MEDS: VALPROATE SODIUM 1,000 MG in NACL 0.9% 100 ML IV SCH ×2 (09:00→20:31)
[2019-08-06] MEDS: FUROSEMIDE 40 MG/4 ML VIAL IVP SCH ×3 (09:00→17:52)
[2019-08-06] MEDS: CLINICAL MONITORING MC SCH (09:00)
[2019-08-06] MEDS: PANTOPRAZOLE 40 MG INJ VIAL IVP SCH (09:00)
[2019-08-06] MEDS: SPIRONOLACTONE 25 MG TAB PO SCH (09:00)
[2019-08-06] MEDS: INSULIN NPH HUMAN ISOPHANE 100 UNIT/ML VIAL SUBQ SCH (09:00)
[2019-08-06] MEDS: AMIODARONE 150 MG in DEXTROSE 5% 100 ML IV SCH ×2 (09:00→20:33)
[2019-08-06] MEDS ORDERED: BUPIVACAINE MPF 0.25% 10 ML VIAL INJ ONE (10:30)
[2019-08-06] MEDS ORDERED: BUPIVACAINE-MPF/EPI 0.25% 10 ML VIAL INJ ONE (10:34)
--- NOTE | 2019-08-06 11:35 | NUR ---
PT BACK FROM OR. VSS.
--- NOTE | 2019-08-06 11:50 | NUR ---
PT MONITOR NOT FUNCTIONAL AFTER COMING BACK FROM OR, ERASED ALL PREVIOUS VITAL SIGNS, IT/[facility] DEPT MADE AWARE, SAMIR TRYING TO FIX MONITOR AT BEDSIDE.
--- NOTE | 2019-08-06 12:27 | NUR ---
DR. PRIYANKA Silva IN TO SEE PT. WILL FOLLOW UP ON ORDERS
--- NOTE | 2019-08-06 13:30 | NUR ---
PT. BACK FROM OR PROCEDURE, WOUND VAC GRANUFOAM PLACED BY DR. DELGADO MID ABDOMINAL SURGICAL WOUND. SPOKE TO [facility] DEPT. CASTILLO THAT WOUND VAC ORDER WAS PLACED THIS MORNING, PER CASTILLO, SHE WILL CALL TO FOLLOW UP ETA.
--- NOTE | 2019-08-06 15:42 | NUR ---
PT NOT IN ANY DISTRESS AT THIS TIME. WILL CONTINUE TO MONITOR.
--- NOTE | 2019-08-06 16:30 | NUR ---
AT 1604, WOUND VAC SETTING IS CONNECTED WITH SETTING AT 75 MMHG CONTINUOUSLY. PRIMARY RN AT BED SIDE [place] DRAINS ARE EMPTIED. AT 1605, 50ML FRESH BLOOD OBSERVED IN CANISTER. WOUND VAC STOPPED, DR. DELGADO. PAGED. ABOVE INFORMATION REPORTED. PER DR. DELGADO CONTINUE ORDER. ASK DR. DELGADO SHOULD WOUND VAC STOP AT CERTAIN AMOUNT OF BLOOD OUTPUT. HE SAID TO CONTINUE WOUND VAC , DON'T STOP. AT 1615, FRESH BLOOD IN CANISTER REACHED 150ML OBSERVED. WOUND VAC STOPPED AND POC DISCUSSED WITH DEPUTY BUILDING GUARD PER WOUND VAC GUIDELINE STOP WOUND VAC IF BLOOD OBSERVED. DR. DELGADO WAS PAGED AT 1625. SPOKE TO DR. DELGADO THAT WOUND VAC IS STOPPED AT THIS TIME AND REQUEST TO RE-EVALUATION OF SETTING. HE SAID HE WILL COME BACK TO CHECK. AT 1625, PRIMARY RN IS ATTENDING OTHER PT'S CARE. ALL ABOVE INFORMATION INFORM TO CHARGE NURSE. PT. IS AT STABLE CONDITION, NO S/S OF DISTRESS AT THIS TIME.
--- NOTE | 2019-08-06 17:37 | NUR ---
PT REMAINS ON DOCUMENTED VENT SETTINGS. PT NOT IN ANY DISTRESS AT THIS TIME. VENT ALARMS ON AND FUNCTIONING. ETT IS SECURE WITH A PATENT AIRWAY.
--- NOTE | 2019-08-06 19:22 | NUR ---
RECEIVED PATIENT FROM AM SHIFT. PATIENT IS INTUBATED WITH ETT SIZE 7.5 AND SECURED WITH ANCHOR-FAST AT 22CM @ THE TEETH. PATIENT IS ON VENT SETTINGS: RR 20, VT 450, PEEP 5, AND FiO2 25%. VENT PLUGGED IN RED OUTLET, ALARMS SET AND AUDIBLE, BVM AT BEDSIDE, AND HOB > 30 DEGREES. PATIENT IS IN NO APPARENT RESPIRATORY DISTRESS AT THIS TIME: RR 20, HR 85, SPO2 100%, AND A COARSE BILATERAL BREATH SOUNDS ON AUSCULTATION. SUCTION SCANT AMOUNT OF CLEAR WHITE THICK SECRETIONS FROM THE ETT. HHN TX GIVEN ORDERED AND PATIENT TOLERATED WELL WITH NO ADVERSE REACTION. WILL CONTINUE TO MONITOR PATIENT.
--- NOTE | 2019-08-06 19:30 | NUR ---
REPORT GIVEN TO DYNAMITE PACKING MACHINE OPERATOR RN FOR CONTINUITY OF CARE. NO S/SX OF ACUTE DISTRESS NOTED AT THIS TIME.
--- NOTE | 2019-08-06 19:31 | NUR ---
RECEIVED BEDSIDE REPORT FROM AM SHIFT NURSEYANET. PATIENT IS LYING IN BED, SEDATED. RASS -4. PATIENT IS ON ETT TO MECHANICAL VENTILATOR, TOLERATING VENT SETTINGS WELL OF ACVC- MODE, FIO2 OF-25, VT-450, RR-20, PEEP-5. G-TUBE IN PLACE, GRAVITY DRAIN TO BAG, DRAINING GASTRIC DRAINAGE. NGT IN PLACE IN LEFT NARE, CONNECTED TO LOW INTERMITTENT SUCTIONING. THOMPSON CATHETER IN PLACE, DRAINING WELL WITH BRUNO COLORED URINE. RECTAL TUBE IN PLACE, WITH MINIMAL OUTPUT. BILATERAL [place] DRAINS NOTED, DRAINING WELL. PATIENT IS CONNECTED TO WOUND VAC. PATIENT NOTED WITH OPEN ABDOMINAL WOUND, ENFORCED PROPERLY. PATIENT NOTED WITH RIGHT UPPER ARM PICC LINE DOUBLE LUMEN. FIRST LUMEN RUNNING IVF AT TKO. SECOND LUMEN RUNNING VERSED AND FENTANYL. ALSO NOTED WITH RIGHT IJ TRIPLE LUMEN. FIRST LUMEN RUNNING TPN, SECOND LUMEN RUNNING LEVOPHED AND THIRD LINE IS SALINE LOCKED. SOFT WRIST RESTRAINT NOTED ON RIGHT WRIST. BED IN LOW, BED LOCKED. ON CONTACT PRECAUTION FOR MDRO WOUND. SAFETY MEASURES IN PLACE. WILL CONTINUE TO MONITOR PATIENT.
--- NOTE | 2019-08-06 20:00 | NUR ---
PAGED DR. MATHEW FOR PRN ORDER. PATIENT IS MOVING HEAD FROM SIDE TO SIDE AND PULLING LINES.
--- NOTE | 2019-08-06 20:30 | NUR ---
MD CALLED BACK WITH NEW ORDERS FOR HALDOL 10MG IV, Q6 PRN.
[2019-08-06] MEDS: MULTIVITAMIN IV SCH ×3 (20:31)
[2019-08-06] MEDS: AMINO ACIDS 8.5% IV SCH ×3 (20:31)
[2019-08-06] MEDS: DEXTROSE IV SCH ×3 (20:31)
[2019-08-06] MEDS: NOREPINEPHRINE 16 MG in DEXTROSE 5% 250 ML IV PRN (20:35)
[2019-08-07] VITALS (83 sets, daily range): BP systolic 74–131; BP diastolic 40–74
[2019-08-07] MEDS: BLOOD GLUCOSE MONITORING 1 DEV DEV MC SCH ×3 (00:10→09:47)
[2019-08-07] MEDS: VANCOMYCIN 1,000 MG in NACL 0.9% 250 ML IV SCH ×2 (00:12→15:31)
[2019-08-07] MEDS: INSULIN LISPRO SLIDING SCALE 100 UNITS/ML VIAL SUBQ PRN ×3 (00:13→10:39)
--- NOTE | 2019-08-07 00:13 | NUR ---
PATIENT HAD A BLOOD GLUCOSE RESULT OF 200 WITH 2 UNITS OF REGULAR HUMALOG INSULIN ADMINISTERED. WILL CONTINUE TO MONITOR PATIENT.
[2019-08-07] MEDS: ACETAMINOPHEN 650 MG/20.3 ML UDC GT PRN (00:20)
--- NOTE | 2019-08-07 00:20 | NUR ---
PRN TYLENOL 650MG LIQUID ADMINISTERED AT THIS TIME FOR TEMPORAL TEMP OF 100.4.
[2019-08-07] MEDS: fentaNYL 1 MG in NACL 0.9% 80 ML IV PRN ×2 (00:57→06:57)
[2019-08-07] MEDS: ALBUTEROL SULFATE/IPRATROPIU 3 ML SOL IH SCH ×3 (00:59→14:42)
--- NOTE | 2019-08-07 01:40 | NUR ---
CALLED [facility] CHARGE NURSE FOR WOUND VAC REPLACEMENT, CHARGE NURSE REPORTS THEY DO NOT HAVE ONE AVAILABLE, CALLED [facility] CHARGE NURSE AND THEY DO NOT CARRY WOUND VAC. CHECKED [facility]Y [facility] AND WE DO NOT HAVE ONE AVAILABLE. MADE CALL TO TOLL BRIDGE ATTENDANT. NO WOUND VAC AVAILABLE AT THIS TIME. WOUND VAC GETTING FULL, CHARGE NURSE AND HOUSE SUP AT BEDSIDE WITH RN, CIERRA TO CLAMP AT THIS TIME.
[2019-08-07] MEDS: HYDRAGUARD CREAM TP SCH ×2 (03:14→13:00)
--- NOTE | 2019-08-07 04:00 | NUR ---
TURNED AND REPOSITIONED PATIENT, PROVIDED A.M CARE, TOLERATED FAIRLY. CHANGED ABDOMINAL BINDER. EMPTIED ALL DRAINS AND THOMPSON. REPLACED LINEN. PROVIDED ORAL CARE/
[2019-08-07] MEDS: MEROPENEM 1,000 MG in NACL 0.9% 100 ML IV SCH ×2 (04:13→16:29)
[2019-08-07] MEDS: MIDAZOLAM MDV 100 MG in NACL 0.9% 80 ML IV PRN (04:27)
--- NOTE | 2019-08-07 05:45 | NUR ---
PATIENT HAD A BLOOD GLUCOSE RESULT OF 175 WITH 2 UNITS OF REGULAR HUMALOG INSULIN GIVEN.
--- NOTE | 2019-08-07 05:45 | NUR ---
FiO2 WAS TITRATED DOWN TO 21% WITH SPO2 OF 98%. AIRWAY IS PATENT. NO RESPIRATORY DISTRESS NOTED AT THIS TIME. WILL CONTINUE TO MONITOR. Addendum: 08/07/19 at 0552 by Kenneth Aponte RT SPO2 IS 94% ON FiO2 OF 21%
[2019-08-07 06:10] LABS: CREATININE 1.3 mg/dL (0.6-1.3)
[2019-08-07 06:19] LABS: MAGNESIUM 2.3 mg/dL (1.8-2.4); PHOSPHORUS 5.2 mg/dL (2.5-4.9)
[2019-08-07] MEDS ORDERED: fentaNYL 0.05 MG/ML VIAL ONE ×2 (06:45)
--- NOTE | 2019-08-07 06:57 | NUR ---
FENTANYL BAG CHANGED AT THIS TIME. WILL CONTINUE TO MONITOR PATIENT.
--- NOTE | 2019-08-07 07:15 | NUR ---
PATIENT IN STABLE CONDITION. ENDORSED TO MEHDI FOR CONTINUATION OF CARE.
--- NOTE | 2019-08-07 08:15 | NUR ---
PT SEDATED RASS -4, SLIGHTLY WITHDRAWS TO PAIN AND OPENS RIGHT EYE BRIEFLY. ETT TO VENT, ACVC 20, FI02 21%, TV 450, PEEP 5. LUNG SOUNDS CLEAR BILATERALLY. S1S2 ON MONITOR. ON LEVOPHED DRIP AT 6.9 MCG/MIN-6.55ML/HR, FENTANYL INFUSING 1.96 MCG/KG/H-20ML/HR, AND VERSED- 15ML/HR-15MG/HR. DRY WEIGHT 102KG. ZACH PICC, RIGHT IJ, AND RIGHT WRIST ARTERIAL LINE IN PLACE. ALL PATENT WITHOUT SYMPTOMS. NGT TO LEFT NARES CONNECTED TO LOW INTERMITTENT SUCTION. TPN INFUSING TO 80 ML/HR. LARGE OPEN WOUND TO ABDOMEN, ABDOMINAL BINDER IN PLACE. BILATERAL [place] DRAINS, WOUND VAC IN PLACE, CURRENTLY CLAMPED. PREVIOUS GTUBE SITE HAS DRAIN, BY GRAVITY. THOMPSON IN PLACE WITH BRUNO/STRAW COLORED URINE NOTED. RIGHT WRIST SOFT RESTRAINT IN PLACE, SKIN INTACT. LEFT SIDED WEAKNESS DUE TO HX CVA. SCD's IN PLACE. HOB 30 DEGREES, SEIZURE PRECAUTIONS AND CONTACT ISOLATION. SIDERAILS UP x3, WILL CONTINUE TO MONITOR.
--- NOTE | 2019-08-07 09:00 | NUR ---
ORAL CARE PROVIDED, TURNED AND REPOSITIONED. PT TOLERATED FAIRLY. ACCUCHECK 163, SLIDING SCALE 2 UNITS HUMALOG GIVEN AND SCHEDULED NPH 20 UNITS GIVEN SCHEDULED.
[2019-08-07] MEDS: PANTOPRAZOLE 40 MG INJ VIAL IVP SCH (09:40)
[2019-08-07] MEDS: VALPROATE SODIUM 1,000 MG in NACL 0.9% 100 ML IV SCH (09:40)
[2019-08-07] MEDS: FUROSEMIDE 40 MG/4 ML VIAL IVP SCH ×2 (09:41→16:44)
[2019-08-07] MEDS: SPIRONOLACTONE 25 MG TAB PO SCH (09:41)
--- NOTE | 2019-08-07 09:45 | NUR ---
ARTERIAL LINE ZERO'd AND CONNECTED TO MONITOR. BP STABLE, STILL ON LEVOPHED DRIP AT 7 MCG/MIN.
[2019-08-07] MEDS: AMIODARONE 150 MG in DEXTROSE 5% 100 ML IV SCH (09:46)
--- NOTE | 2019-08-07 10:00 | NUR ---
REPLACED WOUND VAC CONTAINER, WOUND DRAINAGE IS BRIGHT RED BLOOD AND CANISTER IS COMPLETELY FULL. AT BEDSIDE TO CONNECT NEW CANISTER, INCREASED TO 75MMHG, ON CONTINUOUS SUCTION.
[2019-08-07] MEDS: INSULIN NPH HUMAN ISOPHANE 100 UNIT/ML VIAL SUBQ SCH (10:50)
[2019-08-07 11:05] LABS: HEMATOCRIT 21.1 % (36-52); MEAN CORPUSCULAR HEMOGLOBIN 29 pg (27-31); MEAN CORPUSCULAR HGB CONC 33 g/dL (33-37); MEAN CORPUSCULAR VOLUME 89.3 fL (80-94); PLATELET COUNT (AUTO) 256 K/uL (140-450); RED BLOOD CELL COUNT(AUTO) 2.37 MIL/uL (4.20-6.10); RED CELL DISTRIBUTION WIDTH 15.9 % (11.6-13.7); WHITE BLOOD COUNT (AUTO) 23.5 K/uL (4.8-10.8)
[2019-08-07 11:21] LABS: HEMOGLOBIN 6.9 g/dL (12.0-18.0)
--- NOTE | 2019-08-07 11:58 | NUR ---
PT SEDATION WEANED AT 1135 AND SBT TRIAL ATTEMPTED AT 1200 ON PS 8 PEEP 5. PT DID NOT TOLERATE WELL. PT HAD APNEA SPELLS AND SPONTANEOUS BREATHS WERE NOT ADEQUATE. POST SBT ATTEMPT, PT WAS PLACED BACK ON PREVIOUS SETTINGS AC/VC 20/450/+5/21%.
--- NOTE | 2019-08-07 12:40 | NUR ---
ENDORSED CARE TO CHARGE NURSE ELIAS
--- NOTE | 2019-08-07 13:00 | NUR ---
RECEIVED REPORT FROM MEHDI.PT. HAS ETT TO VENT SETTING NO CHANGE . 0N LEVOPHED @ 7MCG/MIN TPN IN PROGRESS AT 80ML/HR WOUND VAC HAS MODERATED OF SEROSANGUINEOUS DRAINAGE.
[2019-08-07 13:51] LABS: BASOPHILS % (AUTO) 1.1 % (0.0-2.0); EOSINOPHILS % (AUTO) 0.3 % (0.0-4.0); LYMPHOCYTES % (AUTO) 10.6 % (20.5-51.1); MONOCYTES % (AUTO) 14.2 % (1.7-9.3); NEUTROPHILS # (AUTO) 17.4 K/uL (1.8-7.7); NEUTROPHILS % (AUTO) 73.8 % (42.2-75.2)
[2019-08-07 13:52] LABS: BASOPHILS # (AUTO) 0.3 K/uL (0.00-0.22); EOSINOPHILS # (AUTO) 0.1 K/uL (0-0.4); MONOCYTES # (AUTO) 3.3 K/uL (0.8-1.0)
[2019-08-07 13:53] LABS: PLATELET COUNT,MANUAL 256 K/uL (150-450)
[2019-08-07 13:54] LABS: LYMPHOCYTES # (AUTO) 2.5 K/uL (2.0-11.5)
[2019-08-07] MEDS ORDERED: FLUCONAZOLE 200 MG/NS PREMIX 100 ML IV SCH (16:00)
--- NOTE | 2019-08-07 16:45 | NUR ---
RECEIVED REPORT FROM YAMEL HORTON. PT ETT TO VENT LETHARGIC, RESPONDS TO PAINFUL STIMULI, UNABLE TO FOLLOW COMMANDS, GENERALIZED WEAKNESS NOTED. SR 70S +3 PITTING EDEMA, ANASARCA NOTED. PALPABLE PULSES. DIMINISHED BREATH SOUNDS, 30% FIO2, RR 20 TV 450 PEEP 5. ABD DISTENDED, S/P ABD LAPAROTOMY WITH WOUND VAC IN PLACE, ABD BINDER INTACT MINIMAL SEROSANG DRAINAGE NOTED. RUQ DRAIN DARK GREEN DRAINAGE NOTED, RLQ [place] DRAIN IN PLACE DIAZ REDDISH DRAINAGE NOTED, LLQ [place] DRAIN IN PLACE SEROSANG DRAINAGE NOTED. RECTAL TUBE IN PLACE BROWN LIQUID STOOL NOTED. THOMPSON CATH IN PLACE DARKYELLOW URINE NOTED. R RADIAL ART LINE IN PLACE IBP 118/72 @ THIS TIME. RIJ PATENT IN PLACE TRIPLE LUMEN CENTRAL LINE, LEVOPHED DRIP INFUSING @ 8 MCG/MIN, TPN INFUSING PER MD ORDER. SCDS IN PLACE. HOB >30 DEGREES. BED LOCKED IN LOWEST POSITION. FLACC 0.
--- NOTE | 2019-08-07 16:50 | NUR ---
DR MATHEW @ BEDSIDE, DISCUSSED CODE STATUS, CHANGED TO DNR WITH COMFORT MEASURES, TO STOP ALL UNNECCESSARY MEDS/LAB ORDERS. MD STATED TO START MORPHINE DRIP TITRATE TO COMFORT, TERMINAL EXTUBATION. ORDERS CONFIRMED WITH CHARGE NURSE ELIAS.
[2019-08-07] MEDS ORDERED: MORPHINE SULFATE 50 MG in NACL 0.9% 45 ML IV PRN (17:00)
--- NOTE | 2019-08-07 17:48 | NUR ---
MORPHINE DRIP STARTED @ 2MG/HR PER PROTOCOL. PT EYES CLOSED, FLACC 0. NO S/S ACUTE DISTRESS NOTED. WILL F/U WITH RT FOR EXTUBATION.
--- NOTE | 2019-08-07 17:48 | NUR ---
RESTRAINT D/C'D. FLACC 0. NO ACUTE DISTRESS NOTED.
--- NOTE | 2019-08-07 18:08 | NUR ---
CALL DR. DIAZ REGARDING PT. CONDITION AND DR MATHEW HAS [facility] PT ON DNR CODE STATUS AND HE WILL COME TO [facility] FOR 2ND PHYSICIAN.
--- NOTE | 2019-08-07 18:10 | NUR ---
TITRATED OFF LEVOPHED DRIP WILL CONTINUE TO OBSERVE.
--- NOTE | 2019-08-07 18:20 | NUR ---
CALL JOSE MILLARD THE ACID CONDENSER AT [phone] INFORM HER THAT HAS CHANGED CODE STATUS TO DNR BY 2 PHYSICIAN . AND IN CASE PT. PAST AWAY HOW CAN WE TAKE CARE OF THE BODY.. SHE REPLIED THAT SHE WILL CALL THE CASE MANAGE AT THE [facility] AND WILL CALL US BACK.
--- NOTE | 2019-08-07 18:35 | NUR ---
RT @ BEDSIDE FOR TERM EXTUBATION, ET TUBE WAS D/C'D BY RT, NGT D/C'D. PT TOLERATED PROCEDURE. WILL CONTINUE TO OBSERVE.
--- NOTE | 2019-08-07 18:50 | NUR ---
PT HAS SHALLOW BREATHING, EYES CLOSED, GURGLING SOUNDS NOTED. WILL INCREASE MORPHINE DRIP PER PROTOCOL TO 3 MG/HR
--- NOTE | 2019-08-07 19:18 | NUR ---
1835 patient was extubated for terminal weaning. comfort measures only.
--- NOTE | 2019-08-07 19:25 | NUR ---
JOSE CALLED BACK SAID THEY USED [facility] HOME [phone] , WE CAN CALL THEM AFTER PT. PAST AWAY AND CALL HER THE PERSON TO RELEASE THE BODY. OR CALL HER ANY TIME IF WE HAVE QUESTION.
--- NOTE | 2019-08-07 19:50 | NUR ---
MORPHINE DRIP INCREASED TO 4 MG/HR, EYES CLOSED, GURGLING SOUNDS NOTED, RR 50S SPO2 58% SR 90S @ THIS TIME. FLACC 0.
[2019-08-07] MEDS ORDERED: MULTIVITAMIN-12 10 ML in DEXTROSE 50% 960 ML, AMINO ACIDS 8.5% 860 ML, FAT EMULSION 20%... IV SCH ×4 (20:00)
--- NOTE | 2019-08-07 21:05 | NUR ---
pt became asystole, no palpable carotid/femoral pulse, no respirations noted. will update next of kin, laundry housekeeper, per protocol.
--- NOTE | 2019-08-07 21:10 | NUR ---
called Akosua Alaniz [phone], notified pt expiration. will f/u with Maurisio Coles for transport of body.
--- NOTE | 2019-08-07 21:20 | NUR ---
in house counsel @ bedside pronounced @ 2120.
--- NOTE | 2019-08-07 21:22 | NUR ---
Dr. Ricardo Jon called, made aware of pt expiration. MD aware. no new orders.
--- NOTE | 2019-08-07 21:33 | NUR ---
[facility] called, spoke with Michelle, Ref# [id number]. pt not a candidate.
--- NOTE | 2019-08-07 21:40 | NUR ---
[facility] with Janay [phone], awaiting Inventory Control Coordinator to call back.
--- NOTE | 2019-08-07 23:45 | NUR ---
CALLED [facility] -[phone] SPOKE WITH PITER, MESSAGE LEFT FOR TRIP FOLLOWER TO CALL BACK.
--- NOTE | 2019-08-08 01:15 | NUR ---
[facility] -[phone] F/U WITH PITER, AWAITING GEAR MACHINE OPERATOR GENERAL TO CALL BACK, NO ETA GIVEN.
--- NOTE | 2019-08-08 04:00 | NUR ---
RECEIVED PHONE CALL FROM [facility], BODY RELEASED FROM [facility], PT NOT COAL WHEELER CASE @ THIS TIME. CASE#[id number] FOR REFERENCE
--- NOTE | 2019-08-08 04:30 | NUR ---
[facility] CALLED; [phone], SPOKE WITH NORBERTO, AWAITING CALL BACK FOR ETA ON PICKUP.
--- NOTE | 2019-08-08 05:15 | NUR ---
POST MORTEM CARE DONE PER PROTOCOL. AWAITING CALL BACK FROM MORTUARY FOR TRANSPORT
--- NOTE | 2019-08-08 05:32 | NUR ---
DANAE FROM [facility] CALLED BACK, ETA [phone] MINS FROM 0530.
--- NOTE | 2019-08-08 07:22 | NUR ---
report given to charge nurse [email or web address]. mortuary to come picker packer patient within the hour.
--- NOTE | 2019-08-08 07:28 | NUR ---
THE [facility] CAME TO LABORATORY TECHNICIAN THE BODY. JOSE MAY CALLED AND INFORM.
== END 2019-08-08 07:28 | disposition expired | DRG 853 ==
LOC: MED 08:23 → MIC 10:47 → EEVIPCON 10:47 → MIC 12:26
PROVIDERS: ADMIT Preventive Medicine Preventive Medicine/Occupational Environmental Medicine; ATTEND Preventive Medicine Preventive Medicine/Occupational Environmental Medicine
PROC: 5A1955Z Respiratory Ventilation, Greater than 96 Consecutive Hours (ICD-10-PCS; principal; 2019-07-24)
PROC: 0BH17EZ Insertion of Endotracheal Airway into Trachea, Via Natural or Artificial Opening (ICD-10-PCS; 2019-07-24)
PROC: 02HV33Z Insertion of Infusion Device into Superior Vena Cava, Percutaneous Approach (ICD-10-PCS; 2019-07-25)
PROC: 0D9 Gastrointestinal System, Drainage (ICD-10-PCS; 2019-07-29)
PROC: 0W9H0ZZ Drainage of Retroperitoneum, Open Approach (ICD-10-PCS; 2019-07-30)
PROC: 0D20XUZ Change Feeding Device in Upper Intestinal Tract, External Approach (ICD-10-PCS; 2019-07-31)
PROC: 30233N1 Transfusion of Nonautologous Red Blood Cells into Peripheral Vein, Percutaneous Approach (ICD-10-PCS; 2019-08-02)
PROC: 3E1K38Z Irrigation of Genitourinary Tract using Irrigating Substance, Percutaneous Approach (ICD-10-PCS; 2019-08-03)
PROC: 3E1K38Z Irrigation of Genitourinary Tract using Irrigating Substance, Percutaneous Approach (ICD-10-PCS; 2019-08-06)
DX: A41.01 Sepsis due to Methicillin susceptible Staphylococcus aureus (principal); J96.01 Acute respiratory failure with hypoxia; J69.0 Pneumonitis due to inhalation of food and vomit; E43 Unspecified severe protein-calorie malnutrition; R65.21 Severe sepsis with septic shock; K65.9 Peritonitis, unspecified; K65.1 Peritoneal abscess; E87.1 Hypo-osmolality and hyponatremia; I69.354 Hemiplegia and hemiparesis following cerebral infarction affecting left non-dominant side; N17.9 Acute kidney failure, unspecified; K94.23 Gastrostomy malfunction; Z68.30 Body mass index [BMI] 30.0-30.9, adult; E03.9 Hypothyroidism, unspecified; E83.42 Hypomagnesemia; E83.52 Hypercalcemia; E88.09 Other disorders of plasma-protein metabolism, not elsewhere classified; Z03.818 Encounter for observation for suspected exposure to other biological agents ruled out; G40.909 Epilepsy, unspecified, not intractable, without status epilepticus; I10 Essential (primary) hypertension; R13.10 Dysphagia, unspecified; Z86.14 Personal history of Methicillin resistant Staphylococcus aureus infection; Z87.01 Personal history of pneumonia (recurrent); Y95 Nosocomial condition; R73.9 Hyperglycemia, unspecified; R74.0 Nonspecific elevation of levels of transaminase and lactic acid dehydrogenase [LDH]; I48.0 Paroxysmal atrial fibrillation; E88.89 Other specified metabolic disorders
CPT/HCPCS: 31500; 36415; 36430; 36600; 51702; 71045; 74018; 74021; 74022; 75989; 76700; 80048; 80053; 80202; 81001; 81003; 82550; 82553; 82570; 82803; 82948; 83605; 83735; 83880; 83935; 84100; 84132; 84300; 84443; 84478; 84484; 85025; 85379; 85610; 85651; 85730; 86140; 86886; 86900; 86901; 86920; 87040; 87070; 87075; 87081; 87086; 87186; 87205; 87420; 87804; 93005; 93970; 94003; 94640; 96361; 96365; 96375; 99291; A4330; A9153; C1729; C1781; C9113; J0282; J1450; J1644; J1815; J1940; J1956; J2001; J2060; J2185; J2250; J2270; J2370; J2405; J2543; J2704; J2710; J2765; J3010; J3370; J3475; J3480; J3490; J7030; J7060; J7613; J7644; P9016; P9046; Q0092; Q9967